=== PATIENT | male | born 1945 | race Caucasian/White ===

== ENCOUNTER → 2018-10-30 14:31 | Outpatient (CLI) | payer MEDICARE, OTHER, SELFPAY ==
[2018-10-30 15:28] LABS: Hematocrit 37.6 % (41-53); Hemoglobin 13.2 g/dL (13.5-17.5); Mean Corpuscular HGB Conc 34.9 % (30-36); Mean Corpuscular Hemoglobin 31.1 PG (26-34); Mean Corpuscular Volume 89.1 fL (80-100); Platelet Count 338 X10^3/uL (150-400); Red Blood Cell Count 4.22 X10^6/uL (4.5-5.9); Red Cell Distribution Width 12.8 % (11.6-14.8); White Blood Cell Count 8.7 X10^3/uL (4.5-11.0)
[2018-10-30 15:54] LABS: BUN Creatinine Ratio 15.5 (6-22); Blood Urea Nitrogen 17 mg/dL (9-20); Calcium 9.4 mg/dL (8.4-10.2); Carbon Dioxide 25 mmol/L (22-32); Chloride 101 mmol/L (98-107); Estimated Glomerular Filt Rate > 60.0 mL/min (>60); Glucose 149 mg/dL (80-110); HEMOLYSIS < 15 (0-50); Potassium 3.5 mmol/L (3.4-5.1); Sodium 138 mmol/L (137-145)
[2018-10-30 17:12] LABS: Vitamin D 25 Hydroxy (D3) 35.6 ng/mL (30.0-100.0)
== END ==
PROVIDERS: PCP Student in an Organized Health Care Education/Training Program; Visit Provider Student in an Organized Health Care Education/Training Program
DX: D64.9 Anemia, unspecified (principal); I10 Essential (primary) hypertension; R04.0 Epistaxis; E55.9 Vitamin D deficiency, unspecified
CPT/HCPCS: 36415; 80048; 82306; 85027

== ENCOUNTER → 2020-03-02 14:31 | Outpatient (CLI) | payer MEDICARE, OTHER, SELFPAY ==
--- NOTE | 2020-03-02 14:35 | DI.RAD.S_ITS ---
PROCEDURE: XR WRIST RT MIN 3V INDICATIONS: Dorsal Wrist pain TECHNIQUE: 4 views of the wrist were acquired. COMPARISON: [facility], , WRIST MINIMUM 3 VIEWS RIGHT, 11/14/2012, 8:45. FINDINGS: Bones: No fractures or dislocations. No suspicious bony lesions. Moderate to severe 1st CMC degenerative narrowing, with subchondral sclerosis and cyst formation, progressive compared to prior exam. Radiocarpal narrowing is also noted. Scaphoid view: No visualized fracture. Soft tissues: No suspicious soft tissue calcifications. IMPRESSION: Moderate to severe 1st CMC degenerative narrowing suggestive of osteoarthritis Dictated by: Sofy Stein M.D. on 03/02/2020 at 17:53 Approved by: Sofy Stein M.D. on 03/02/2020 at 17:53
== END ==
PROVIDERS: PCP Student in an Organized Health Care Education/Training Program; Referring Provider Student in an Organized Health Care Education/Training Program; Visit Provider Student in an Organized Health Care Education/Training Program
DX: M25.531 Pain in right wrist (principal)
CPT/HCPCS: 73110

== ENCOUNTER 2020-04-01 09:45 | Outpatient (RCR) | payer MEDICARE, OTHER, SELFPAY ==
--- NOTE | 2020-03-05 13:23 | PT.OIE ---
Current Diagnoses Pain in right knee (03/05/20) Past Medical History (Last Reviewed 03/21/18 @ 12:59 by Ruben Contreras MD) Actinic keratosis (Resolved) Allergic rhinitis (Chronic) Carpal tunnel syndrome (Chronic) Chronic obstructive pulmonary disease (Chronic 04/10/16) COPD (chronic obstructive pulmonary disease) (Chronic) Deviated nasal septum (Chronic) Essential hypertension (Chronic 04/10/16) Hyperlipemia (Chronic) Hypertension (Chronic) Left knee pain (Chronic) Pure hypercholesterolemia (Chronic 04/10/16) Recurrent epistaxis (Chronic) Seborrheic keratosis (Chronic 04/20/16) Shoulder impingement (Chronic ~2011) Past Surgical History (Last Updated 10/31/18 @ 07:51 by Ignacio Ny MD) Hx of hernia repair (Resolved) Visit Care Team Role Provider Type Ignacio Ny MD Attending Provider Physician Primary Care Provider Referring Provider Specialty: Internal Medicine Address: [address] [place] [address], [facility] Email: [email or web address] Physical Therapy Initial Evaluation PT-OP-A Visit Information Start: 03/05/20 10:31 Freq: Status: Active Protocol: Document 03/05/20 12:15 MB (Rec: 03/05/20 12:28 MB [id number]) Out-Patient Physical Therapy Visit Information Visit Information Visit Type Initial Evaluation Visit Note Medicare Visit Start Time 12:15 Visit Stop Time 12:55 Total Visit Minutes 40 Visit Number 1 Evaluation Information Evaluation Date 03/05/20 PT-OP-B Current Condition Start: 03/05/20 10:31 Freq: Status: Active Protocol: Document 03/05/20 12:15 MB (Rec: 03/05/20 12:28 MB [id number]) Current Condition History of Current Condition Onset Date Many years ago Current Complaints Pain from right knee down [place] especially when getting up from sitting >1 h History of Current Condition Pt reports a long history of right knee pain. He had PT in the past that was helpful. He discharged because he met his goals. This was 3-4 years ago. He reports that previous PT was for right ITB pain. He had pain when playing ping pong. His pain now is in the knee joint. In the morning, the knee joint sounds like it is clunking around and then the leg feels heavy. The pain goes down the [place]. He walks 3 miles a day. He has a guided mower and has pain down the right [place] after mowing an hour. He also has pain in the right knee joint when getting up after driving 1-2 hours. He denies paresthesias in the legs. Pt reports 2/10 pain. PMH: Right knee arthritis, B knee injections, right wrist problem, essential HTN, high cholesterol. He has been taking statin for many years and BP meds. Treatment Goals Patient/Caregiver Goals To not have pain when he gets up Prior Functional Status Baseline Function- ADL's Independent Baseline Function- Mobility Independent PT-OP-C Subjective Start: 03/05/20 10:31 Freq: Status: Active Protocol: Document 03/05/20 12:15 MB (Rec: 03/05/20 12:28 MB [id number]) OP-PT Subjective Patient Comments Patient Comments See history of current condition Patient Questionnaires Lower Extremity Functional Scale LEFS Impairment 20 to 39% Impaired (Score 48- 62) PT-OP-J Posture/Palpation/Skin Start: 03/05/20 10:31 Freq: Status: Active Protocol: Document 03/05/20 12:15 MB (Rec: 03/05/20 13:19 MB [id number]) Posture Evaluation Comments Posture Comments Standing: forward head, rounded shoulders, Dowager's hump, decreased thoracic kyphosis, increased lordosis, anterior tilt pelvis, right shoulder lower with right scapula protracted and elevated compared to the left (pt is right hand dominant), right iliac crest higher than the left, B overpronation rear foot, greater on the right foot, increased Bella angle, greater on the right PT-OP-K Range of Motion Start: 03/05/20 10:31 Freq: Status: Active Protocol: Document 03/05/20 12:15 MB (Rec: 03/05/20 13:19 MB [id number]) Knee Goniometric Range of Motion Knee Left Knee ROM WFL No Patient Position Supine Flexion Active (degrees) 115 Extension Active (degrees) 5 Right Knee ROM WFL No Patient Position Supine Flexion Active (degrees) 115 Extension Active (degrees) 5 PT-OP-M Strength Start: 03/05/20 10:31 Freq: Status: Active Protocol: Document 03/05/20 12:15 MB (Rec: 03/05/20 13:19 MB [id number]) Hip Strength Hip Manual Muscle Testing Left Flexion (L2) 5 Normal Abduction 5 Normal Comments Pt supine Right Flexion (L2) 5 Normal Abduction 4 Good Comments Pt supine Knee Strength Knee Manual Muscle Testing Left Flexion (S2) 5 Normal Extension (L3) 5 Normal Right Flexion (S2) 5 Normal Extension (L3) 5 Normal Ankle/Foot Strength Ankle and Foot Manual Muscle Testing Left Dorsiflexion (L4) 5 Normal Plantarflexion (S1) 5 Normal Inversion 5 Normal Eversion (S1) 5 Normal Comments Pt supine. Pt does have limited eversion and inversion mobility d/t degenerative changes and trouble isolating them movement Right Dorsiflexion (L4) 5 Normal Plantarflexion (S1) 5 Normal Inversion 5 Normal Eversion (S1) 5 Normal Comments Pt supine. Pt does have limited eversion and inversion mobility d/t degenerative changes and trouble isolating them movement Toe Strength Toe Manual Muscle Testing Left Great Toe Extension 5 Normal Right Great Toe Extension 5 Normal PT-OP-Q Treatments Start: 03/05/20 10:31 Freq: Status: Active Protocol: Document 03/05/20 12:15 MB (Rec: 03/05/20 13:19 MB [id number]) Therapeutic Exercises Supine Exercises AP Side bilateral Comments Ed to perform in bed and in sitting HS Side bilateral Comments 1 rep and ed to perform at home in the bed before getting up in a.m. Sitting Exercises HS Side bilateral Comments Ed to perform when sitting longer than 1/2 hour at desk, in chair or car Manual Therapy Treatment Taping R knee Type of Tape Kinesio Tape Comments Black KT c strip under patella and B I strips medial and lateral knee to support knee Self-Care/Home Management Treatment Education Other Education No barefoot walking, use of ice, pillow support under knees if supine and between knees if side sleeping PT-OP-T Assessment and Plan Start: 03/05/20 10:31 Freq: Status: Active Protocol: Document 03/05/20 12:15 MB (Rec: 03/05/20 13:19 MB [id number]) Physical Therapy Assessment Rehab Potential Rehabilitation Potential Good Evaluation Complexity Number of Personal Factors/Comorbidities 1-2 Number of Body Systems Impaired 1-2 Clinical Presentation at Evaluation Stable Impairments Impairments Balance,Functional Activities, Functional Mobility,Gait,Pain, Posture,ROM,Soft Tissue Mobility,Strength Other Concerns Fall Risk No Goals 4 Laboratory Tech Goal (LTG) Pt will perform progressive HEP with I including postural, alignment, flexibility, strength and balance to improve gait, pain and range by 05/05/2020. LTG Duration 8 weeks 3 Custodial Goal (LTG) Pt will present with improved right hip abduction strength to 5/5 to improve standing balance by 05/05/2020. LTG Duration 8 weeks 2 Custodial Goal (LTG) Pt will present with improved B AROM knees in supine 2-125 deg to improve function and flexibility by 05/05/2020. LTG Duration 8 weeks 1 Impairment LEF reflects 26.25% impairment Custodial Goal (LTG) Pt will present with LEF score reflecting no more than 20% impairment to reflect improved functional mobility and pain by 05/05/2020. LTG Duration 8 weeks Assessment Summary Assessment Pt is a 75 y/o male presenting with long history of right knee pain. On assessment, he demonstrates postural changes including increased body mass, rearfoot overpronation greater on the right affecting knee and hip position up the chain in standing, pelvic obliquities, decreased B knee AROM, right hip weakness and myofascial changes. MD report reflects history of OA and pt reports history of B knee injections. He responded well to PT in the past. He will benefit from PT for flexibility, strengthening, myofascial, pelvic realignment and balance exercises. Barriers include degenerative nature of condition. Physical Therapy Plan Frequency and Duration Frequency of Treatment 2x/Week Duration of Treatment 8 weeks Plan of Care Start Date 03/05/20 Plan of Care End Date 05/05/20 Therapeutic Interventions Therapeutic Interventions Aquatic Therapy,Balance Training,Canalithic Repositioning,Gait Training, Home Exercise Program,Manual Therapy,Neuromuscular Re- education,Patient/Caregiver Education,Self-Care/Home Management,Soft Tissue Mobilization,Taping, Therapeutic Activities, Therapeutic Exercises Modalities Cold Pack/Ice Massage,Electric Stimulation,Hot Packs, Ultrasound Next Visit Focus/Plan Next Note Type Treatment Note Next Visit Plan Pelvic realignment exercises, Olayinka stretch, racquet ball
--- NOTE | 2020-03-05 13:24 | PT.OPPOC ---
Physical, Occupational & Speech Therapy At [facility] Current Diagnoses Pain in right knee (03/05/20) Visit Care Team Role Provider Type Ignacio Ny MD Attending Provider Physician Primary Care Provider Referring Provider Specialty: Internal Medicine Address: [address] [place] [address], [address], [place], [address] Email: [email or web address] Plan Of Care PT-OP-T Assessment and Plan Start: 03/05/20 10:31 Freq: Status: Active Protocol: Document 03/05/20 12:15 MB (Rec: 03/05/20 13:19 MB [id number]) Physical Therapy Assessment Rehab Potential Rehabilitation Potential Good Evaluation Complexity Number of Personal Factors/Comorbidities 1-2 Number of Body Systems Impaired 1-2 Clinical Presentation at Evaluation Stable Impairments Impairments Balance,Functional Activities, Functional Mobility,Gait,Pain, Posture,ROM,Soft Tissue Mobility,Strength Other Concerns Fall Risk No Goals 4 Mechanical Engineering Coop Goal (LTG) Pt will perform progressive HEP with I including postural, alignment, flexibility, strength and balance to improve gait, pain and range by 05/05/2020. LTG Duration 8 weeks 3 Mechanical Engineering Coop Goal (LTG) Pt will present with improved right hip abduction strength to 5/5 to improve standing balance by 05/05/2020. LTG Duration 8 weeks 2 Jail Goal (LTG) Pt will present with improved B AROM knees in supine 2-125 deg to improve function and flexibility by 05/05/2020. LTG Duration 8 weeks 1 Impairment LEF reflects 26.25% impairment Jail Goal (LTG) Pt will present with LEF score reflecting no more than 20% impairment to reflect improved functional mobility and pain by 05/05/2020. LTG Duration 8 weeks Assessment Summary Assessment Pt is a 75 y/o male presenting with long history of right knee pain. On assessment, he demonstrates postural changes including increased body mass, rearfoot overpronation greater on the right affecting knee and hip position up the chain in standing, pelvic obliquities, decreased B knee AROM, right hip weakness and myofascial changes. MD report reflects history of OA and pt reports history of B knee injections. He responded well to PT in the past. He will benefit from PT for flexibility, strengthening, myofascial, pelvic realignment and balance exercises. Barriers include degenerative nature of condition. Physical Therapy Plan Frequency and Duration Frequency of Treatment 2x/Week Duration of Treatment 8 weeks Plan of Care Start Date 03/05/20 Plan of Care End Date 05/05/20 Therapeutic Interventions Therapeutic Interventions Aquatic Therapy,Balance Training,Canalithic Repositioning,Gait Training, Home Exercise Program,Manual Therapy,Neuromuscular Re- education,Patient/Caregiver Education,Self-Care/Home Management,Soft Tissue Mobilization,Taping, Therapeutic Activities, Therapeutic Exercises Modalities Cold Pack/Ice Massage,Electric Stimulation,Hot Packs, Ultrasound Next Visit Focus/Plan Next Note Type Treatment Note Next Visit Plan Pelvic realignment exercises, Olayinka arreguin, millie ball Plan of Care Dates Plan of Care Start Date 03/05/20 Plan of Care End Date 05/05/20 Electronically Signed by: Nancy Galvan PT 03/05/20 3205 Please Sign and Return: I have reviewed this Plan of Care and certify that the skilled therapy services above are required to meet the patient?s needs. Physician Signature Date Printed Name and Credentials Clinical Instructor Signature Printed Name and Credentials
--- NOTE | 2020-03-08 13:48 | PT.OTN ---
Current Diagnoses Pain in right knee (03/08/20) Physical Therapy Treatment Note PT-OP-A Visit Information Start: 03/05/20 10:31 Freq: Status: Active Protocol: Document 03/08/20 12:56 MB (Rec: 03/08/20 13:36 MB [id number]) Out-Patient Physical Therapy Visit Information Visit Information Visit Type Treatment Note Visit Note Medicare Visit Start Time 12:56 Visit Stop Time 13:41 Total Visit Minutes 45 Visit Number 2 PT-OP-B Current Condition Start: 03/05/20 10:31 Freq: Status: Active Protocol: Document 03/05/20 12:15 MB (Rec: 03/05/20 12:28 MB [id number]) Current Condition History of Current Condition Onset Date Many years ago Current Complaints Pain from right knee down [place] especially when getting up from sitting >1 h History of Current Condition Pt reports a long history of right knee pain. He had PT in the past that was helpful. He discharged because he met his goals. This was 3-4 years ago. He reports that previous PT was for right ITB pain. He had pain when playing ping pong. His pain now is in the knee joint. In the morning, the knee joint sounds like it is clunking around and then the leg feels heavy. The pain goes down the [place]. He walks 3 miles a day. He has a guided mower and has pain down the right [place] after mowing an hour. He also has pain in the right knee joint when getting up after driving 1-2 hours. He denies paresthesias in the legs. Pt reports 2/10 pain. PMH: Right knee arthritis, B knee injections, right wrist problem, essential HTN, high cholesterol. He has been taking statin for many years and BP meds. Treatment Goals Patient/Caregiver Goals To not have pain when he gets up Prior Functional Status Baseline Function- ADL's Independent Baseline Function- Mobility Independent PT-OP-C Subjective Start: 03/05/20 10:31 Freq: Status: Active Protocol: Document 03/08/20 12:56 MB (Rec: 03/08/20 13:36 MB [id number]) OP-PT Subjective Patient Comments Patient Comments Pt states that he didn't notice any difference with the tape. He did do the AP and heel slides and that loosened his knee. Pt states that he has an appointment with Dr. Mahan for the knee and wrist cyst in March. PT-OP-J Posture/Palpation/Skin Start: 03/05/20 10:31 Freq: Status: Active Protocol: Document 03/05/20 12:15 MB (Rec: 03/05/20 13:19 MB [id number]) Posture Evaluation Comments Posture Comments Standing: forward head, rounded shoulders, Dowager's hump, decreased thoracic kyphosis, increased lordosis, anterior tilt pelvis, right shoulder lower with right scapula protracted and elevated compared to the left (pt is right hand dominant), right iliac crest higher than the left, B overpronation rear foot, greater on the right foot, increased Bella angle, greater on the right PT-OP-K Range of Motion Start: 03/05/20 10:31 Freq: Status: Active Protocol: Document 03/05/20 12:15 MB (Rec: 03/05/20 13:19 MB [id number]) Knee Goniometric Range of Motion Knee Left Knee ROM WFL No Patient Position Supine Flexion Active (degrees) 115 Extension Active (degrees) 5 Right Knee ROM WFL No Patient Position Supine Flexion Active (degrees) 115 Extension Active (degrees) 5 PT-OP-M Strength Start: 03/05/20 10:31 Freq: Status: Active Protocol: Document 03/05/20 12:15 MB (Rec: 03/05/20 13:19 MB [id number]) Hip Strength Hip Manual Muscle Testing Left Flexion (L2) 5 Normal Abduction 5 Normal Comments Pt supine Right Flexion (L2) 5 Normal Abduction 4 Good Comments Pt supine Knee Strength Knee Manual Muscle Testing Left Flexion (S2) 5 Normal Extension (L3) 5 Normal Right Flexion (S2) 5 Normal Extension (L3) 5 Normal Ankle/Foot Strength Ankle and Foot Manual Muscle Testing Left Dorsiflexion (L4) 5 Normal Plantarflexion (S1) 5 Normal Inversion 5 Normal Eversion (S1) 5 Normal Comments Pt supine. Pt does have limited eversion and inversion mobility d/t degenerative changes and trouble isolating them movement Right Dorsiflexion (L4) 5 Normal Plantarflexion (S1) 5 Normal Inversion 5 Normal Eversion (S1) 5 Normal Comments Pt supine. Pt does have limited eversion and inversion mobility d/t degenerative changes and trouble isolating them movement Toe Strength Toe Manual Muscle Testing Left Great Toe Extension 5 Normal Right Great Toe Extension 5 Normal PT-OP-Q Treatments Start: 03/05/20 10:31 Freq: Status: Active Protocol: Document 03/08/20 12:56 MB (Rec: 03/08/20 13:36 MB [id number]) Cardio Equipment Recumbent Elliptical (Biodex) Duration (Minutes) 10 Resistance 5 Therapeutic Exercises Supine Exercises Abdominal drawing in Comments Abdominal drawing in before Olayinka stretch Olayinka stretch Comments Abdominal drawing in before stretch Pelvic realignment exercises Comments 5 reps with 3 sec hold Standing Exercises Gastroc and soleus stretches Comments Bilateral legs, 20 sec hold Manual Therapy Treatment Other Other Manual Treatments STM right tibialis anterior, ice massage. Pt presents with B distal tibia bone changes, greater on the right and greater edema on the right. Pt with fungus on great toe nail and very long nails and this may be contributing to symptoms on right [place]/ anterior tib. PT-OP-T Assessment and Plan Start: 03/05/20 10:31 Freq: Status: Active Protocol: Document 03/08/20 12:56 MB (Rec: 03/08/20 13:36 MB [id number]) Physical Therapy Assessment Rehab Potential Rehabilitation Potential Good Evaluation Complexity Number of Personal Factors/Comorbidities 1-2 Number of Body Systems Impaired 1-2 Clinical Presentation at Evaluation Stable Impairments Impairments Balance,Functional Activities, Functional Mobility,Gait,Pain, Posture,ROM,Soft Tissue Mobility,Strength Other Concerns Fall Risk No Goals 4 Senior Care Goal (LTG) Pt will perform progressive HEP with I including postural, alignment, flexibility, strength and balance to improve gait, pain and range by 05/05/2020. LTG Duration 8 weeks 3 Senior Care Goal (LTG) Pt will present with improved right hip abduction strength to 5/5 to improve standing balance by 05/05/2020. LTG Duration 8 weeks 2 Education Administrative Assistant Goal (LTG) Pt will present with improved B AROM knees in supine 2-125 deg to improve function and flexibility by 05/05/2020. LTG Duration 8 weeks 1 Impairment LEF reflects 26.25% impairment Education Administrative Assistant Goal (LTG) Pt will present with LEF score reflecting no more than 20% impairment to reflect improved functional mobility and pain by 05/05/2020. LTG Duration 8 weeks Assessment Summary Assessment Initiated alignment exercises and flexibility today to assist with knee range and posture. Con't progression as set below under next treatment comments. Hamstring stetch next treatment date. Tibial changes distally, greater on the right and great toe nail fungus and increased length that may affect foot mechanics in his shoes. Ed pt to get toe nails cut. Physical Therapy Plan Frequency and Duration Frequency of Treatment 2x/Week Duration of Treatment 8 weeks Plan of Care Start Date 03/05/20 Plan of Care End Date 05/05/20 Therapeutic Interventions Therapeutic Interventions Aquatic Therapy,Balance Training,Canalithic Repositioning,Gait Training, Home Exercise Program,Manual Therapy,Neuromuscular Re- education,Patient/Caregiver Education,Self-Care/Home Management,Soft Tissue Mobilization,Taping, Therapeutic Activities, Therapeutic Exercises Modalities Cold Pack/Ice Massage,Electric Stimulation,Hot Packs, Ultrasound Next Visit Focus/Plan Next Note Type Treatment Note Next Visit Plan Review exercises, add hamstring stretch supine, consider SLR if it looks beneficial for quad and leg control, consider upright bike , racquet ball. Progress standing hip strengthening, heel raises with band at side for core engagement.
--- NOTE | 2020-03-12 11:15 | PT.OTN ---
Current Diagnoses Pain in right knee (03/12/20) Physical Therapy Treatment Note PT-OP-A Visit Information Start: 03/05/20 10:31 Freq: Status: Active Protocol: Document 03/12/20 10:35 MB (Rec: 03/12/20 11:12 MB [id number]) Out-Patient Physical Therapy Visit Information Visit Information Visit Type Treatment Note Visit Note Medicare Visit Start Time 10:35 Visit Stop Time 11:15 Total Visit Minutes 40 Visit Number 3 PT-OP-B Current Condition Start: 03/05/20 10:31 Freq: Status: Active Protocol: Document 03/05/20 12:15 MB (Rec: 03/05/20 12:28 MB [id number]) Current Condition History of Current Condition Onset Date Many years ago Current Complaints Pain from right knee down [place] especially when getting up from sitting >1 h History of Current Condition Pt reports a long history of right knee pain. He had PT in the past that was helpful. He discharged because he met his goals. This was 3-4 years ago. He reports that previous PT was for right ITB pain. He had pain when playing ping pong. His pain now is in the knee joint. In the morning, the knee joint sounds like it is clunking around and then the leg feels heavy. The pain goes down the [place]. He walks 3 miles a day. He has a guided mower and has pain down the right [place] after mowing an hour. He also has pain in the right knee joint when getting up after driving 1-2 hours. He denies paresthesias in the legs. Pt reports 2/10 pain. PMH: Right knee arthritis, B knee injections, right wrist problem, essential HTN, high cholesterol. He has been taking statin for many years and BP meds. Treatment Goals Patient/Caregiver Goals To not have pain when he gets up Prior Functional Status Baseline Function- ADL's Independent Baseline Function- Mobility Independent PT-OP-C Subjective Start: 03/05/20 10:31 Freq: Status: Active Protocol: Document 03/12/20 10:35 MB (Rec: 03/12/20 11:12 MB [id number]) OP-PT Subjective Patient Comments Patient Comments Pt states that his whole anterior leg is doing better. The calf stretches are helpful . He cut his toe nails. PT-OP-J Posture/Palpation/Skin Start: 03/05/20 10:31 Freq: Status: Active Protocol: Document 03/05/20 12:15 MB (Rec: 03/05/20 13:19 MB [id number]) Posture Evaluation Comments Posture Comments Standing: forward head, rounded shoulders, Dowager's hump, decreased thoracic kyphosis, increased lordosis, anterior tilt pelvis, right shoulder lower with right scapula protracted and elevated compared to the left (pt is right hand dominant), right iliac crest higher than the left, B overpronation rear foot, greater on the right foot, increased Bella angle, greater on the right PT-OP-K Range of Motion Start: 03/05/20 10:31 Freq: Status: Active Protocol: Document 03/05/20 12:15 MB (Rec: 03/05/20 13:19 MB [id number]) Knee Goniometric Range of Motion Knee Left Knee ROM WFL No Patient Position Supine Flexion Active (degrees) 115 Extension Active (degrees) 5 Right Knee ROM WFL No Patient Position Supine Flexion Active (degrees) 115 Extension Active (degrees) 5 PT-OP-M Strength Start: 03/05/20 10:31 Freq: Status: Active Protocol: Document 03/05/20 12:15 MB (Rec: 03/05/20 13:19 MB [id number]) Hip Strength Hip Manual Muscle Testing Left Flexion (L2) 5 Normal Abduction 5 Normal Comments Pt supine Right Flexion (L2) 5 Normal Abduction 4 Good Comments Pt supine Knee Strength Knee Manual Muscle Testing Left Flexion (S2) 5 Normal Extension (L3) 5 Normal Right Flexion (S2) 5 Normal Extension (L3) 5 Normal Ankle/Foot Strength Ankle and Foot Manual Muscle Testing Left Dorsiflexion (L4) 5 Normal Plantarflexion (S1) 5 Normal Inversion 5 Normal Eversion (S1) 5 Normal Comments Pt supine. Pt does have limited eversion and inversion mobility d/t degenerative changes and trouble isolating them movement Right Dorsiflexion (L4) 5 Normal Plantarflexion (S1) 5 Normal Inversion 5 Normal Eversion (S1) 5 Normal Comments Pt supine. Pt does have limited eversion and inversion mobility d/t degenerative changes and trouble isolating them movement Toe Strength Toe Manual Muscle Testing Left Great Toe Extension 5 Normal Right Great Toe Extension 5 Normal PT-OP-Q Treatments Start: 03/05/20 10:31 Freq: Status: Active Protocol: Document 03/12/20 10:35 MB (Rec: 03/12/20 11:12 MB [id number]) Cardio Equipment Bicycle (Upright) Duration (Minutes) 10 Resistance 2 Other Move to 3 next time Therapeutic Exercises Supine Exercises Hip rotator stretch Comments B 30 sec hold Hamstring stretch Comments B, 45 sec hold and APs Olayinka stretch Comments Abdominal drawing in before stretch B 45 sec, HS Other Exercises Quad STM with rolling pin Comments Perform in sitting Manual Therapy Treatment Other Other Manual Treatments STM right quads with rolling pin PT-OP-T Assessment and Plan Start: 03/05/20 10:31 Freq: Status: Active Protocol: Document 03/12/20 10:35 MB (Rec: 03/12/20 11:12 MB [id number]) Physical Therapy Assessment Rehab Potential Rehabilitation Potential Good Evaluation Complexity Number of Personal Factors/Comorbidities 1-2 Number of Body Systems Impaired 1-2 Clinical Presentation at Evaluation Stable Impairments Impairments Balance,Functional Activities, Functional Mobility,Gait,Pain, Posture,ROM,Soft Tissue Mobility,Strength Other Concerns Fall Risk No Goals 4 Aquatics Instructor Goal (LTG) Pt will perform progressive HEP with I including postural, alignment, flexibility, strength and balance to improve gait, pain and range by 05/05/2020. LTG Duration 8 weeks 3 Aquatics Instructor Goal (LTG) Pt will present with improved right hip abduction strength to 5/5 to improve standing balance by 05/05/2020. LTG Duration 8 weeks 2 [facility] Goal (LTG) Pt will present with improved B AROM knees in supine 2-125 deg to improve function and flexibility by 05/05/2020. LTG Duration 8 weeks 1 Impairment LEF reflects 26.25% impairment Aquatics Instructor Goal (LTG) Pt will present with LEF score reflecting no more than 20% impairment to reflect improved functional mobility and pain by 05/05/2020. LTG Duration 8 weeks Physical Therapy Plan Frequency and Duration Frequency of Treatment 2x/Week Duration of Treatment 8 weeks Plan of Care Start Date 03/05/20 Plan of Care End Date 05/05/20 Therapeutic Interventions Therapeutic Interventions Aquatic Therapy,Balance Training,Canalithic Repositioning,Gait Training, Home Exercise Program,Manual Therapy,Neuromuscular Re- education,Patient/Caregiver Education,Self-Care/Home Management,Soft Tissue Mobilization,Taping, Therapeutic Activities, Therapeutic Exercises Modalities Cold Pack/Ice Massage,Electric Stimulation,Hot Packs, Ultrasound Next Visit Focus/Plan Next Note Type Treatment Note Next Visit Plan Progress strengthening of LEs in standing
--- NOTE | 2020-03-17 13:00 | PT.OTN ---
Current Diagnoses Pain in right knee (03/17/20) Physical Therapy Treatment Note PT-OP-A Visit Information Start: 03/05/20 10:31 Freq: Status: Active Protocol: Document 03/17/20 12:18 MB (Rec: 03/17/20 12:56 MB [id number]) Out-Patient Physical Therapy Visit Information Visit Information Visit Type Treatment Note Visit Note Medicare Visit Start Time 12:18 Visit Stop Time 12:58 Total Visit Minutes 40 Visit Number 4 PT-OP-B Current Condition Start: 03/05/20 10:31 Freq: Status: Active Protocol: Document 03/05/20 12:15 MB (Rec: 03/05/20 12:28 MB [id number]) Current Condition History of Current Condition Onset Date Many years ago Current Complaints Pain from right knee down [place] especially when getting up from sitting >1 h History of Current Condition Pt reports a long history of right knee pain. He had PT in the past that was helpful. He discharged because he met his goals. This was 3-4 years ago. He reports that previous PT was for right ITB pain. He had pain when playing ping pong. His pain now is in the knee joint. In the morning, the knee joint sounds like it is clunking around and then the leg feels heavy. The pain goes down the [place]. He walks 3 miles a day. He has a guided mower and has pain down the right [place] after mowing an hour. He also has pain in the right knee joint when getting up after driving 1-2 hours. He denies paresthesias in the legs. Pt reports 2/10 pain. PMH: Right knee arthritis, B knee injections, right wrist problem, essential HTN, high cholesterol. He has been taking statin for many years and BP meds. Treatment Goals Patient/Caregiver Goals To not have pain when he gets up Prior Functional Status Baseline Function- ADL's Independent Baseline Function- Mobility Independent PT-OP-C Subjective Start: 03/05/20 10:31 Freq: Status: Active Protocol: Document 03/17/20 12:18 MB (Rec: 03/17/20 12:56 MB [id number]) OP-PT Subjective Patient Comments Patient Comments Pt states that he is feeling better. He thinks that the stretching of his calves is helping him. The front of his right [place] feels better, even in the morning. PT-OP-J Posture/Palpation/Skin Start: 03/05/20 10:31 Freq: Status: Active Protocol: Document 03/05/20 12:15 MB (Rec: 03/05/20 13:19 MB [id number]) Posture Evaluation Comments Posture Comments Standing: forward head, rounded shoulders, Dowager's hump, decreased thoracic kyphosis, increased lordosis, anterior tilt pelvis, right shoulder lower with right scapula protracted and elevated compared to the left (pt is right hand dominant), right iliac crest higher than the left, B overpronation rear foot, greater on the right foot, increased Bella angle, greater on the right PT-OP-K Range of Motion Start: 03/05/20 10:31 Freq: Status: Active Protocol: Document 03/05/20 12:15 MB (Rec: 03/05/20 13:19 MB [id number]) Knee Goniometric Range of Motion Knee Left Knee ROM WFL No Patient Position Supine Flexion Active (degrees) 115 Extension Active (degrees) 5 Right Knee ROM WFL No Patient Position Supine Flexion Active (degrees) 115 Extension Active (degrees) 5 PT-OP-M Strength Start: 03/05/20 10:31 Freq: Status: Active Protocol: Document 03/05/20 12:15 MB (Rec: 03/05/20 13:19 MB [id number]) Hip Strength Hip Manual Muscle Testing Left Flexion (L2) 5 Normal Abduction 5 Normal Comments Pt supine Right Flexion (L2) 5 Normal Abduction 4 Good Comments Pt supine Knee Strength Knee Manual Muscle Testing Left Flexion (S2) 5 Normal Extension (L3) 5 Normal Right Flexion (S2) 5 Normal Extension (L3) 5 Normal Ankle/Foot Strength Ankle and Foot Manual Muscle Testing Left Dorsiflexion (L4) 5 Normal Plantarflexion (S1) 5 Normal Inversion 5 Normal Eversion (S1) 5 Normal Comments Pt supine. Pt does have limited eversion and inversion mobility d/t degenerative changes and trouble isolating them movement Right Dorsiflexion (L4) 5 Normal Plantarflexion (S1) 5 Normal Inversion 5 Normal Eversion (S1) 5 Normal Comments Pt supine. Pt does have limited eversion and inversion mobility d/t degenerative changes and trouble isolating them movement Toe Strength Toe Manual Muscle Testing Left Great Toe Extension 5 Normal Right Great Toe Extension 5 Normal PT-OP-Q Treatments Start: 03/05/20 10:31 Freq: Status: Active Protocol: Document 03/17/20 12:18 MB (Rec: 03/17/20 12:56 MB [id number]) Cardio Equipment Bicycle (Upright) Duration (Minutes) 10 Resistance 7 Seat Position 2 Other Move seat to 3 next time Therapeutic Exercises Supine Exercises Hip rotator stretch Side bilateral Reps/Minutes 1 rep 30 sec Olayinka stretch Side bilateral Reps/Minutes 1 rep, hold 1 min Comments MWM with heel slide Manual Therapy Treatment Other Other Manual Treatments STM right vastus lateralis and anterior tibialis PT-OP-T Assessment and Plan Start: 03/05/20 10:31 Freq: Status: Active Protocol: Document 03/17/20 12:18 MB (Rec: 03/17/20 12:56 MB [id number]) Physical Therapy Assessment Rehab Potential Rehabilitation Potential Good Evaluation Complexity Number of Personal Factors/Comorbidities 1-2 Number of Body Systems Impaired 1-2 Clinical Presentation at Evaluation Stable Impairments Impairments Balance,Functional Activities, Functional Mobility,Gait,Pain, Posture,ROM,Soft Tissue Mobility,Strength Other Concerns Fall Risk No Goals 4 [facility] Goal (LTG) Pt will perform progressive HEP with I including postural, alignment, flexibility, strength and balance to improve gait, pain and range by 05/05/2020. LTG Duration 8 weeks 3 Religious Healer Goal (LTG) Pt will present with improved right hip abduction strength to 5/5 to improve standing balance by 05/05/2020. LTG Duration 8 weeks 2 Religious Healer Goal (LTG) Pt will present with improved B AROM knees in supine 2-125 deg to improve function and flexibility by 05/05/2020. LTG Duration 8 weeks 1 Impairment LEF reflects 26.25% impairment Religious Healer Goal (LTG) Pt will present with LEF score reflecting no more than 20% impairment to reflect improved functional mobility and pain by 05/05/2020. LTG Duration 8 weeks Assessment Summary Assessment MWM with Olayinka rodríguez today. Ongoing STM right vastus lateralis today and pt presents with much improved fascial mobility. Physical Therapy Plan Frequency and Duration Frequency of Treatment 2x/Week Duration of Treatment 8 weeks Plan of Care Start Date 03/05/20 Plan of Care End Date 05/05/20 Therapeutic Interventions Therapeutic Interventions Aquatic Therapy,Balance Training,Canalithic Repositioning,Gait Training, Home Exercise Program,Manual Therapy,Neuromuscular Re- education,Patient/Caregiver Education,Self-Care/Home Management,Soft Tissue Mobilization,Taping, Therapeutic Activities, Therapeutic Exercises Modalities Cold Pack/Ice Massage,Electric Stimulation,Hot Packs, Ultrasound Next Visit Focus/Plan Next Note Type Treatment Note Next Visit Plan Progress strengthening of LEs in standing
--- NOTE | 2020-03-19 08:15 | PT.OTN ---
Current Diagnoses Pain in right knee (03/19/20) Physical Therapy Treatment Note PT-OP-A Visit Information Start: 03/05/20 10:31 Freq: Status: Active Protocol: Document 03/19/20 07:30 SP (Rec: 03/19/20 08:13 SP [id number]) Out-Patient Physical Therapy Visit Information Visit Information Visit Type Treatment Note Visit Note Medicare Visit Start Time 07:30 Visit Stop Time 08:15 Total Visit Minutes 45 Visit Number 5 Number of DIE REPAIR Visits 1 PT-OP-B Current Condition Start: 03/05/20 10:31 Freq: Status: Active Protocol: Document 03/05/20 12:15 MB (Rec: 03/05/20 12:28 MB [id number]) Current Condition History of Current Condition Onset Date Many years ago Current Complaints Pain from right knee down [place] especially when getting up from sitting >1 h History of Current Condition Pt reports a long history of right knee pain. He had PT in the past that was helpful. He discharged because he met his goals. This was 3-4 years ago. He reports that previous PT was for right ITB pain. He had pain when playing ping pong. His pain now is in the knee joint. In the morning, the knee joint sounds like it is clunking around and then the leg feels heavy. The pain goes down the [place]. He walks 3 miles a day. He has a guided mower and has pain down the right [place] after mowing an hour. He also has pain in the right knee joint when getting up after driving 1-2 hours. He denies paresthesias in the legs. Pt reports 2/10 pain. PMH: Right knee arthritis, B knee injections, right wrist problem, essential HTN, high cholesterol. He has been taking statin for many years and BP meds. Treatment Goals Patient/Caregiver Goals To not have pain when he gets up Prior Functional Status Baseline Function- ADL's Independent Baseline Function- Mobility Independent PT-OP-C Subjective Start: 03/05/20 10:31 Freq: Status: Active Protocol: Document 03/19/20 07:30 SP (Rec: 03/19/20 08:13 SP [id number]) OP-PT Subjective Patient Comments Patient Comments Pt stated feeling better, the R peroneals muscles have loosened up alot since last tx . No concerns or changes, compliant with HEP. PT-OP-J Posture/Palpation/Skin Start: 03/05/20 10:31 Freq: Status: Active Protocol: Document 03/05/20 12:15 MB (Rec: 03/05/20 13:19 MB [id number]) Posture Evaluation Comments Posture Comments Standing: forward head, rounded shoulders, Dowager's hump, decreased thoracic kyphosis, increased lordosis, anterior tilt pelvis, right shoulder lower with right scapula protracted and elevated compared to the left (pt is right hand dominant), right iliac crest higher than the left, B overpronation rear foot, greater on the right foot, increased Bella angle, greater on the right PT-OP-K Range of Motion Start: 03/05/20 10:31 Freq: Status: Active Protocol: Document 03/05/20 12:15 MB (Rec: 03/05/20 13:19 MB [id number]) Knee Goniometric Range of Motion Knee Left Knee ROM WFL No Patient Position Supine Flexion Active (degrees) 115 Extension Active (degrees) 5 Right Knee ROM WFL No Patient Position Supine Flexion Active (degrees) 115 Extension Active (degrees) 5 PT-OP-M Strength Start: 03/05/20 10:31 Freq: Status: Active Protocol: Document 03/05/20 12:15 MB (Rec: 03/05/20 13:19 MB [id number]) Hip Strength Hip Manual Muscle Testing Left Flexion (L2) 5 Normal Abduction 5 Normal Comments Pt supine Right Flexion (L2) 5 Normal Abduction 4 Good Comments Pt supine Knee Strength Knee Manual Muscle Testing Left Flexion (S2) 5 Normal Extension (L3) 5 Normal Right Flexion (S2) 5 Normal Extension (L3) 5 Normal Ankle/Foot Strength Ankle and Foot Manual Muscle Testing Left Dorsiflexion (L4) 5 Normal Plantarflexion (S1) 5 Normal Inversion 5 Normal Eversion (S1) 5 Normal Comments Pt supine. Pt does have limited eversion and inversion mobility d/t degenerative changes and trouble isolating them movement Right Dorsiflexion (L4) 5 Normal Plantarflexion (S1) 5 Normal Inversion 5 Normal Eversion (S1) 5 Normal Comments Pt supine. Pt does have limited eversion and inversion mobility d/t degenerative changes and trouble isolating them movement Toe Strength Toe Manual Muscle Testing Left Great Toe Extension 5 Normal Right Great Toe Extension 5 Normal PT-OP-Q Treatments Start: 03/05/20 10:31 Freq: Status: Active Protocol: Document 03/19/20 07:30 SP (Rec: 03/19/20 08:13 SP [id number]) Cardio Equipment Bicycle (Upright) Duration (Minutes) 8 Resistance 7 Seat Position 3 Therapeutic Exercises Supine Exercises hooklying clamshell Resistance L1 TB Reps/Minutes 2X10 Hold 2 sec Comments cued PPT and slow controlled pacing bridge Reps/Minutes 2x10 3 sec hold lift Comments cued PPT and slow controlled pacing Standing Exercises eccentric calf raises Side bilateral Equipment Used rail for support Reps/Minutes x10 monster walk Standing Exercise Name f/b/side stepping Equipment Used L2 band Reps/Minutes 10 ft x2 laps each direction Other Exercises Quad STM with rolling pin Other Exercise Name quad, calf, peroneals Comments Perform in sitting PT-OP-T Assessment and Plan Start: 03/05/20 10:31 Freq: Status: Active Protocol: Document 03/19/20 07:30 SP (Rec: 03/19/20 08:13 SP [id number]) Physical Therapy Assessment Goals 4 Retirement Goal (LTG) Pt will perform progressive HEP with I including postural, alignment, flexibility, strength and balance to improve gait, pain and range by 05/05/2020. LTG Duration 8 weeks 3 Retirement Goal (LTG) Pt will present with improved right hip abduction strength to 5/5 to improve standing balance by 05/05/2020. LTG Duration 8 weeks 2 Percussion Instrument Repairer Goal (LTG) Pt will present with improved B AROM knees in supine 2-125 deg to improve function and flexibility by 05/05/2020. LTG Duration 8 weeks 1 Impairment LEF reflects 26.25% impairment Retirement Goal (LTG) Pt will present with LEF score reflecting no more than 20% impairment to reflect improved functional mobility and pain by 05/05/2020. LTG Duration 8 weeks Assessment Summary Assessment Pt responded well to initiated LE strengthening bridge, supine clam TB, band walk and eccentric calf raises with no pain, a good workout for muscles around knees and some over side of lower leg. Reviewed rolling quad and peroneals for self STMs to decrease any tension might have after muscle activtion. Pt no pain or tighness end of tx. Physical Therapy Plan Frequency and Duration Frequency of Treatment 2x/Week Duration of Treatment 8 weeks Plan of Care Start Date 03/05/20 Plan of Care End Date 05/05/20 Therapeutic Interventions Therapeutic Interventions Aquatic Therapy,Balance Training,Canalithic Repositioning,Gait Training, Home Exercise Program,Manual Therapy,Neuromuscular Re- education,Patient/Caregiver Education,Self-Care/Home Management,Soft Tissue Mobilization,Taping, Therapeutic Activities, Therapeutic Exercises Modalities Cold Pack/Ice Massage,Electric Stimulation,Hot Packs, Ultrasound Next Visit Focus/Plan Next Note Type Treatment Note Next Visit Plan Assess response to added LE strengthening see A for details. Continue Progress strengthening of LEs in standing
--- NOTE | 2020-03-23 09:45 | PT.OTN ---
Current Diagnoses Pain in right knee (03/23/20) Physical Therapy Treatment Note PT-OP-A Visit Information Start: 03/05/20 10:31 Freq: Status: Active Protocol: Document 03/23/20 09:01 SP (Rec: 03/23/20 09:44 SP [id number]) Out-Patient Physical Therapy Visit Information Visit Information Visit Type Treatment Note Visit Note Medicare Visit Start Time 09:01 Visit Stop Time 09:45 Total Visit Minutes 44 Visit Number 6 Number of UNIVERSITY INTERN Visits 2 PT-OP-B Current Condition Start: 03/05/20 10:31 Freq: Status: Active Protocol: Document 03/05/20 12:15 MB (Rec: 03/05/20 12:28 MB [id number]) Current Condition History of Current Condition Onset Date Many years ago Current Complaints Pain from right knee down [place] especially when getting up from sitting >1 h History of Current Condition Pt reports a long history of right knee pain. He had PT in the past that was helpful. He discharged because he met his goals. This was 3-4 years ago. He reports that previous PT was for right ITB pain. He had pain when playing ping pong. His pain now is in the knee joint. In the morning, the knee joint sounds like it is clunking around and then the leg feels heavy. The pain goes down the [place]. He walks 3 miles a day. He has a guided mower and has pain down the right [place] after mowing an hour. He also has pain in the right knee joint when getting up after driving 1-2 hours. He denies paresthesias in the legs. Pt reports 2/10 pain. PMH: Right knee arthritis, B knee injections, right wrist problem, essential HTN, high cholesterol. He has been taking statin for many years and BP meds. Treatment Goals Patient/Caregiver Goals To not have pain when he gets up Prior Functional Status Baseline Function- ADL's Independent Baseline Function- Mobility Independent PT-OP-C Subjective Start: 03/05/20 10:31 Freq: Status: Active Protocol: Document 03/23/20 09:01 SP (Rec: 03/23/20 09:44 SP [id number]) OP-PT Subjective Patient Comments Patient Comments Pt reported lower leg feeling alot better maybe if doing something for 2-3 hrs otherwise don't notice it. When get up in the am, not noticing as much tightness as use to. PT-OP-J Posture/Palpation/Skin Start: 03/05/20 10:31 Freq: Status: Active Protocol: Document 03/05/20 12:15 MB (Rec: 03/05/20 13:19 MB [id number]) Posture Evaluation Comments Posture Comments Standing: forward head, rounded shoulders, Dowager's hump, decreased thoracic kyphosis, increased lordosis, anterior tilt pelvis, right shoulder lower with right scapula protracted and elevated compared to the left (pt is right hand dominant), right iliac crest higher than the left, B overpronation rear foot, greater on the right foot, increased Bella angle, greater on the right PT-OP-K Range of Motion Start: 03/05/20 10:31 Freq: Status: Active Protocol: Document 03/05/20 12:15 MB (Rec: 03/05/20 13:19 MB [id number]) Knee Goniometric Range of Motion Knee Left Knee ROM WFL No Patient Position Supine Flexion Active (degrees) 115 Extension Active (degrees) 5 Right Knee ROM WFL No Patient Position Supine Flexion Active (degrees) 115 Extension Active (degrees) 5 PT-OP-M Strength Start: 03/05/20 10:31 Freq: Status: Active Protocol: Document 03/05/20 12:15 MB (Rec: 03/05/20 13:19 MB [id number]) Hip Strength Hip Manual Muscle Testing Left Flexion (L2) 5 Normal Abduction 5 Normal Comments Pt supine Right Flexion (L2) 5 Normal Abduction 4 Good Comments Pt supine Knee Strength Knee Manual Muscle Testing Left Flexion (S2) 5 Normal Extension (L3) 5 Normal Right Flexion (S2) 5 Normal Extension (L3) 5 Normal Ankle/Foot Strength Ankle and Foot Manual Muscle Testing Left Dorsiflexion (L4) 5 Normal Plantarflexion (S1) 5 Normal Inversion 5 Normal Eversion (S1) 5 Normal Comments Pt supine. Pt does have limited eversion and inversion mobility d/t degenerative changes and trouble isolating them movement Right Dorsiflexion (L4) 5 Normal Plantarflexion (S1) 5 Normal Inversion 5 Normal Eversion (S1) 5 Normal Comments Pt supine. Pt does have limited eversion and inversion mobility d/t degenerative changes and trouble isolating them movement Toe Strength Toe Manual Muscle Testing Left Great Toe Extension 5 Normal Right Great Toe Extension 5 Normal PT-OP-Q Treatments Start: 03/05/20 10:31 Freq: Status: Active Protocol: Document 03/23/20 09:01 SP (Rec: 03/23/20 09:44 SP [id number]) Cardio Equipment Bicycle (Upright) Duration (Minutes) 8 Resistance 7 Seat Position 3 Gym Equipment Shuttle Balance Blue>red clip Details WBOS, NBOS Reps/Duration f/b/s Comments 1. WBOS: wt shift, rocking, EC 2. NBOS wt shift, stationary 1 UE contact cued glut/core facilitation decrease unsteadiness Therapeutic Exercises Supine Exercises hooklying clamshell Resistance L1 TB Reps/Minutes 2X10 Hold 2 sec Comments cued PPT and slow controlled pacing bridge Supine Exercise Name isometric Reps/Minutes 30 sec hold x8 Comments good PPT alignment Olayinka stretch Side bilateral Reps/Minutes 1 rep, hold 1 min Comments cued safety trunk positioning side table Standing Exercises SLS Side bilateral Reps/Minutes 20 R, 14 L Comments cued upright posture with glut facilitaion eccentric calf raises Standing Exercise Name parallel, toe out positions Side bilateral Equipment Used rail for support Reps/Minutes 3 sec hold x5 each position monster walk Standing Exercise Name f/b/side stepping Equipment Used L2 band Reps/Minutes 10 ft x2 laps each direction PT-OP-T Assessment and Plan Start: 03/05/20 10:31 Freq: Status: Active Protocol: Document 03/23/20 09:01 SP (Rec: 03/23/20 09:44 SP [id number]) Physical Therapy Assessment Goals 4 Rn Progressive Care Goal (LTG) Pt will perform progressive HEP with I including postural, alignment, flexibility, strength and balance to improve gait, pain and range by 05/05/2020. LTG Duration 8 weeks 3 Mcfp Goal (LTG) Pt will present with improved right hip abduction strength to 5/5 to improve standing balance by 05/05/2020. LTG Duration 8 weeks 2 Mcfp Goal (LTG) Pt will present with improved B AROM knees in supine 2-125 deg to improve function and flexibility by 05/05/2020. LTG Duration 8 weeks 1 Impairment LEF reflects 26.25% impairment Mcfp Goal (LTG) Pt will present with LEF score reflecting no more than 20% impairment to reflect improved functional mobility and pain by 05/05/2020. LTG Duration 8 weeks Assessment Summary Assessment Initiated shuttle balance and SLS today with focus on glut facilitation with ankle stability with good response thats challenging but a good work out for ankles and doesn' t hurt. Provided HO for self application of SLS today. Physical Therapy Plan Frequency and Duration Frequency of Treatment 2x/Week Duration of Treatment 8 weeks Plan of Care Start Date 03/05/20 Plan of Care End Date 05/05/20 Therapeutic Interventions Therapeutic Interventions Aquatic Therapy,Balance Training,Canalithic Repositioning,Gait Training, Home Exercise Program,Manual Therapy,Neuromuscular Re- education,Patient/Caregiver Education,Self-Care/Home Management,Soft Tissue Mobilization,Taping, Therapeutic Activities, Therapeutic Exercises Modalities Cold Pack/Ice Massage,Electric Stimulation,Hot Packs, Ultrasound Next Visit Focus/Plan Next Note Type Treatment Note Next Visit Plan Assess response to added SLS and shuttle balance then HEP review. Continue Progress strengthening of LEs in standing
--- NOTE | 2020-03-25 09:45 | PT.OTN ---
Current Diagnoses Pain in right knee (03/25/20) Physical Therapy Treatment Note PT-OP-A Visit Information Start: 03/05/20 10:31 Freq: Status: Active Protocol: Document 03/25/20 09:04 MB (Rec: 03/25/20 09:45 MB [id number]) Out-Patient Physical Therapy Visit Information Visit Information Visit Type Treatment Note Visit Note Medicare Visit Start Time 09:04 Visit Stop Time 09:45 Total Visit Minutes 41 Visit Number 7 Number of INTERIOR DESIGN FACULTY MEMBER Visits 0 PT-OP-B Current Condition Start: 03/05/20 10:31 Freq: Status: Active Protocol: Document 03/05/20 12:15 MB (Rec: 03/05/20 12:28 MB [id number]) Current Condition History of Current Condition Onset Date Many years ago Current Complaints Pain from right knee down [place] especially when getting up from sitting >1 h History of Current Condition Pt reports a long history of right knee pain. He had PT in the past that was helpful. He discharged because he met his goals. This was 3-4 years ago. He reports that previous PT was for right ITB pain. He had pain when playing ping pong. His pain now is in the knee joint. In the morning, the knee joint sounds like it is clunking around and then the leg feels heavy. The pain goes down the [place]. He walks 3 miles a day. He has a guided mower and has pain down the right [place] after mowing an hour. He also has pain in the right knee joint when getting up after driving 1-2 hours. He denies paresthesias in the legs. Pt reports 2/10 pain. PMH: Right knee arthritis, B knee injections, right wrist problem, essential HTN, high cholesterol. He has been taking statin for many years and BP meds. Treatment Goals Patient/Caregiver Goals To not have pain when he gets up Prior Functional Status Baseline Function- ADL's Independent Baseline Function- Mobility Independent PT-OP-C Subjective Start: 03/05/20 10:31 Freq: Status: Active Protocol: Document 03/25/20 09:04 MB (Rec: 03/25/20 09:45 MB [id number]) OP-PT Subjective Patient Comments Patient Comments I don't know, I haven't had time to think about it much. Pt took opening this morning. PT-OP-J Posture/Palpation/Skin Start: 03/05/20 10:31 Freq: Status: Active Protocol: Document 03/05/20 12:15 MB (Rec: 03/05/20 13:19 MB [id number]) Posture Evaluation Comments Posture Comments Standing: forward head, rounded shoulders, Dowager's hump, decreased thoracic kyphosis, increased lordosis, anterior tilt pelvis, right shoulder lower with right scapula protracted and elevated compared to the left (pt is right hand dominant), right iliac crest higher than the left, B overpronation rear foot, greater on the right foot, increased Bella angle, greater on the right PT-OP-K Range of Motion Start: 03/05/20 10:31 Freq: Status: Active Protocol: Document 03/05/20 12:15 MB (Rec: 03/05/20 13:19 MB [id number]) Knee Goniometric Range of Motion Knee Left Knee ROM WFL No Patient Position Supine Flexion Active (degrees) 115 Extension Active (degrees) 5 Right Knee ROM WFL No Patient Position Supine Flexion Active (degrees) 115 Extension Active (degrees) 5 PT-OP-M Strength Start: 03/05/20 10:31 Freq: Status: Active Protocol: Document 03/05/20 12:15 MB (Rec: 03/05/20 13:19 MB [id number]) Hip Strength Hip Manual Muscle Testing Left Flexion (L2) 5 Normal Abduction 5 Normal Comments Pt supine Right Flexion (L2) 5 Normal Abduction 4 Good Comments Pt supine Knee Strength Knee Manual Muscle Testing Left Flexion (S2) 5 Normal Extension (L3) 5 Normal Right Flexion (S2) 5 Normal Extension (L3) 5 Normal Ankle/Foot Strength Ankle and Foot Manual Muscle Testing Left Dorsiflexion (L4) 5 Normal Plantarflexion (S1) 5 Normal Inversion 5 Normal Eversion (S1) 5 Normal Comments Pt supine. Pt does have limited eversion and inversion mobility d/t degenerative changes and trouble isolating them movement Right Dorsiflexion (L4) 5 Normal Plantarflexion (S1) 5 Normal Inversion 5 Normal Eversion (S1) 5 Normal Comments Pt supine. Pt does have limited eversion and inversion mobility d/t degenerative changes and trouble isolating them movement Toe Strength Toe Manual Muscle Testing Left Great Toe Extension 5 Normal Right Great Toe Extension 5 Normal PT-OP-Q Treatments Start: 03/05/20 10:31 Freq: Status: Active Protocol: Document 03/25/20 09:04 MB (Rec: 03/25/20 09:45 MB [id number]) Cardio Equipment Bicycle (Upright) Duration (Minutes) 10 Resistance 7 Seat Position 2 Therapeutic Exercises Supine Exercises Hip adductor stretch Side bilateral Comments Opposite leg straight Hip rotator stretch Side bilateral Comments Performed today, hold 30 sec Hamstring stretch Side bilateral Comments AP x20 with stretch to asst gastroc stretch Abdominal drawing in Comments Performed before Olayinka stretch Olayinka stretch Side bilateral Comments 1 minute hold, cues for core Standing Exercises Mini wall squat slowly Equipment Used Ball Reps/Minutes 10 Comments Cues to slow down eccentric calf raises Side bilateral Comments L 25 sec, R 11 sec; L 8 sec, R 10 sec monster walk Standing Exercise Name f/b/side stepping Equipment Used L1 band Reps/Minutes 10 ft x2 laps each direction PT-OP-T Assessment and Plan Start: 03/05/20 10:31 Freq: Status: Active Protocol: Document 03/25/20 09:04 MB (Rec: 03/25/20 09:45 MB [id number]) Physical Therapy Assessment Goals 4 Research Hydrologist Goal (LTG) Pt will perform progressive HEP with I including postural, alignment, flexibility, strength and balance to improve gait, pain and range by 05/05/2020. LTG Duration 8 weeks 3 Fdc Goal (LTG) Pt will present with improved right hip abduction strength to 5/5 to improve standing balance by 05/05/2020. LTG Duration 8 weeks 2 Research Hydrologist Goal (LTG) Pt will present with improved B AROM knees in supine 2-125 deg to improve function and flexibility by 05/05/2020. LTG Duration 8 weeks 1 Impairment LEF reflects 26.25% impairment Fdc Goal (LTG) Pt will present with LEF score reflecting no more than 20% impairment to reflect improved functional mobility and pain by 05/05/2020. LTG Duration 8 weeks Assessment Summary Assessment Progressed knee strengthening with mini wall squat today with focus on core and slow movement. Monitor response. Pt sees Dr. Mahan this month to discuss TKR. He reports that his discomfort today moved into the knee joint with walking. Physical Therapy Plan Frequency and Duration Frequency of Treatment 2x/Week Duration of Treatment 8 weeks Plan of Care Start Date 03/05/20 Plan of Care End Date 05/05/20 Therapeutic Interventions Therapeutic Interventions Aquatic Therapy,Balance Training,Canalithic Repositioning,Gait Training, Home Exercise Program,Manual Therapy,Neuromuscular Re- education,Patient/Caregiver Education,Self-Care/Home Management,Soft Tissue Mobilization,Taping, Therapeutic Activities, Therapeutic Exercises Modalities Cold Pack/Ice Massage,Electric Stimulation,Hot Packs, Ultrasound Next Visit Focus/Plan Next Note Type Treatment Note Next Visit Plan Review mini squat against wall , consider multifidi strengthening with band against wall and heel raises, possible hook lying core progression
--- NOTE | 2020-03-30 08:16 | PT.OTN ---
Current Diagnoses Pain in right knee (03/30/20) Physical Therapy Treatment Note PT-OP-A Visit Information Start: 03/05/20 10:31 Freq: Status: Active Protocol: Document 03/30/20 07:31 MB (Rec: 03/30/20 08:16 MB [id number]) Out-Patient Physical Therapy Visit Information Visit Information Visit Type Treatment Note Visit Note Medicare Visit Start Time 07:31 Visit Stop Time 08:15 Total Visit Minutes 44 Visit Number 8 PT-OP-B Current Condition Start: 03/05/20 10:31 Freq: Status: Active Protocol: Document 03/05/20 12:15 MB (Rec: 03/05/20 12:28 MB [id number]) Current Condition History of Current Condition Onset Date Many years ago Current Complaints Pain from right knee down [place] especially when getting up from sitting >1 h History of Current Condition Pt reports a long history of right knee pain. He had PT in the past that was helpful. He discharged because he met his goals. This was 3-4 years ago. He reports that previous PT was for right ITB pain. He had pain when playing ping pong. His pain now is in the knee joint. In the morning, the knee joint sounds like it is clunking around and then the leg feels heavy. The pain goes down the [place]. He walks 3 miles a day. He has a guided mower and has pain down the right [place] after mowing an hour. He also has pain in the right knee joint when getting up after driving 1-2 hours. He denies paresthesias in the legs. Pt reports 2/10 pain. PMH: Right knee arthritis, B knee injections, right wrist problem, essential HTN, high cholesterol. He has been taking statin for many years and BP meds. Treatment Goals Patient/Caregiver Goals To not have pain when he gets up Prior Functional Status Baseline Function- ADL's Independent Baseline Function- Mobility Independent PT-OP-C Subjective Start: 03/05/20 10:31 Freq: Status: Active Protocol: Document 03/30/20 07:31 MB (Rec: 03/30/20 08:16 MB [id number]) OP-PT Subjective Patient Comments Patient Comments Pt has an appointment with Dr. Mahan on 04/05 and 04/14. He will see her for the wrist and the knee. PT-OP-J Posture/Palpation/Skin Start: 03/05/20 10:31 Freq: Status: Active Protocol: Document 03/05/20 12:15 MB (Rec: 03/05/20 13:19 MB [id number]) Posture Evaluation Comments Posture Comments Standing: forward head, rounded shoulders, Dowager's hump, decreased thoracic kyphosis, increased lordosis, anterior tilt pelvis, right shoulder lower with right scapula protracted and elevated compared to the left (pt is right hand dominant), right iliac crest higher than the left, B overpronation rear foot, greater on the right foot, increased Bella angle, greater on the right PT-OP-K Range of Motion Start: 03/05/20 10:31 Freq: Status: Active Protocol: Document 03/05/20 12:15 MB (Rec: 03/05/20 13:19 MB [id number]) Knee Goniometric Range of Motion Knee Left Knee ROM WFL No Patient Position Supine Flexion Active (degrees) 115 Extension Active (degrees) 5 Right Knee ROM WFL No Patient Position Supine Flexion Active (degrees) 115 Extension Active (degrees) 5 PT-OP-M Strength Start: 03/05/20 10:31 Freq: Status: Active Protocol: Document 03/05/20 12:15 MB (Rec: 03/05/20 13:19 MB [id number]) Hip Strength Hip Manual Muscle Testing Left Flexion (L2) 5 Normal Abduction 5 Normal Comments Pt supine Right Flexion (L2) 5 Normal Abduction 4 Good Comments Pt supine Knee Strength Knee Manual Muscle Testing Left Flexion (S2) 5 Normal Extension (L3) 5 Normal Right Flexion (S2) 5 Normal Extension (L3) 5 Normal Ankle/Foot Strength Ankle and Foot Manual Muscle Testing Left Dorsiflexion (L4) 5 Normal Plantarflexion (S1) 5 Normal Inversion 5 Normal Eversion (S1) 5 Normal Comments Pt supine. Pt does have limited eversion and inversion mobility d/t degenerative changes and trouble isolating them movement Right Dorsiflexion (L4) 5 Normal Plantarflexion (S1) 5 Normal Inversion 5 Normal Eversion (S1) 5 Normal Comments Pt supine. Pt does have limited eversion and inversion mobility d/t degenerative changes and trouble isolating them movement Toe Strength Toe Manual Muscle Testing Left Great Toe Extension 5 Normal Right Great Toe Extension 5 Normal PT-OP-Q Treatments Start: 03/05/20 10:31 Freq: Status: Active Protocol: Document 03/30/20 07:31 MB (Rec: 03/30/20 08:16 MB [id number]) Cardio Equipment Bicycle (Upright) Duration (Minutes) 12 Resistance 7 Seat Position 2 Therapeutic Exercises Sitting Exercises Ankle DF and eversion with level 2 band Equipment Used Level 2 band Reps/Minutes 10 Comments Cues to keep knees straight Standing Exercises Core engagement with band at side, heel raises Side bilateral Equipment Used Level 2 band Comments 5 each side Manual Therapy Treatment Other Other Manual Treatments STM rolling pin right vastus lateralis, STM right anterior tib PT-OP-T Assessment and Plan Start: 03/05/20 10:31 Freq: Status: Active Protocol: Document 03/30/20 07:31 MB (Rec: 03/30/20 08:16 MB [id number]) Physical Therapy Assessment Goals 4 Insurance And Financial Services Agent Goal (LTG) Pt will perform progressive HEP with I including postural, alignment, flexibility, strength and balance to improve gait, pain and range by 05/05/2020. LTG Duration 8 weeks 3 Insurance And Financial Services Agent Goal (LTG) Pt will present with improved right hip abduction strength to 5/5 to improve standing balance by 05/05/2020. LTG Duration 8 weeks 2 Fpc Goal (LTG) Pt will present with improved B AROM knees in supine 2-125 deg to improve function and flexibility by 05/05/2020. LTG Duration 8 weeks 1 Impairment LEF reflects 26.25% impairment Insurance And Financial Services Agent Goal (LTG) Pt will present with LEF score reflecting no more than 20% impairment to reflect improved functional mobility and pain by 05/05/2020. LTG Duration 8 weeks Assessment Summary Assessment Progressed HEP today to include balance with core and ankle strengthening. Anticipate one more PT treatment and then d/c PT. Physical Therapy Plan Frequency and Duration Frequency of Treatment 2x/Week Duration of Treatment 8 weeks Plan of Care Start Date 03/05/20 Plan of Care End Date 05/05/20 Therapeutic Interventions Therapeutic Interventions Aquatic Therapy,Balance Training,Canalithic Repositioning,Gait Training, Home Exercise Program,Manual Therapy,Neuromuscular Re- education,Patient/Caregiver Education,Self-Care/Home Management,Soft Tissue Mobilization,Taping, Therapeutic Activities, Therapeutic Exercises Modalities Cold Pack/Ice Massage,Electric Stimulation,Hot Packs, Ultrasound Next Visit Focus/Plan Next Note Type Treatment Note Next Visit Plan Review any exercises as needed
--- NOTE | 2020-04-01 10:20 | PT.OTN ---
Current Diagnoses Pain in right knee (04/01/20) Physical Therapy Treatment Note PT-OP-A Visit Information Start: 03/05/20 10:31 Freq: Status: Active Protocol: Document 04/01/20 09:41 MB (Rec: 04/01/20 10:13 MB [id number]) Out-Patient Physical Therapy Visit Information Visit Information Visit Type Treatment Note Visit Note Medicare Visit Start Time 09:41 Visit Stop Time 10:19 Total Visit Minutes 38 Visit Number 9 PT-OP-B Current Condition Start: 03/05/20 10:31 Freq: Status: Active Protocol: Document 03/05/20 12:15 MB (Rec: 03/05/20 12:28 MB [id number]) Current Condition History of Current Condition Onset Date Many years ago Current Complaints Pain from right knee down whit[place] especially when getting up from sitting >1 h History of Current Condition Pt reports a long history of right knee pain. He had PT in the past that was helpful. He discharged because he met his goals. This was 3-4 years ago. He reports that previous PT was for right ITB pain. He had pain when playing ping pong. His pain now is in the knee joint. In the morning, the knee joint sounds like it is clunking around and then the leg feels heavy. The pain goes down the whit[place]. He walks 3 miles a day. He has a guided mower and has pain down the right whit[place] after mowing an hour. He also has pain in the right knee joint when getting up after driving 1-2 hours. He denies paresthesias in the legs. Pt reports 2/10 pain. PMH: Right knee arthritis, B knee injections, right wrist problem, essential HTN, high cholesterol. He has been taking statin for many years and BP meds. Treatment Goals Patient/Caregiver Goals To not have pain when he gets up Prior Functional Status Baseline Function- ADL's Independent Baseline Function- Mobility Independent PT-OP-C Subjective Start: 03/05/20 10:31 Freq: Status: Active Protocol: Document 04/01/20 09:41 MB (Rec: 04/01/20 10:13 MB [id number]) OP-PT Subjective Patient Comments Patient Comments I don't know. When PT asks pt if he is ready to d/c. If I don't need it, I don't need it. He is performing exercises. PT-OP-J Posture/Palpation/Skin Start: 03/05/20 10:31 Freq: Status: Active Protocol: Document 03/05/20 12:15 MB (Rec: 03/05/20 13:19 MB [id number]) Posture Evaluation Comments Posture Comments Standing: forward head, rounded shoulders, Dowager's hump, decreased thoracic kyphosis, increased lordosis, anterior tilt pelvis, right shoulder lower with right scapula protracted and elevated compared to the left (pt is right hand dominant), right iliac crest higher than the left, B overpronation rear foot, greater on the right foot, increased Bella angle, greater on the right PT-OP-K Range of Motion Start: 03/05/20 10:31 Freq: Status: Active Protocol: Document 03/05/20 12:15 MB (Rec: 03/05/20 13:19 MB [id number]) Knee Goniometric Range of Motion Knee Left Knee ROM WFL No Patient Position Supine Flexion Active (degrees) 115 Extension Active (degrees) 5 Right Knee ROM WFL No Patient Position Supine Flexion Active (degrees) 115 Extension Active (degrees) 5 PT-OP-M Strength Start: 03/05/20 10:31 Freq: Status: Active Protocol: Document 03/05/20 12:15 MB (Rec: 03/05/20 13:19 MB [id number]) Hip Strength Hip Manual Muscle Testing Left Flexion (L2) 5 Normal Abduction 5 Normal Comments Pt supine Right Flexion (L2) 5 Normal Abduction 4 Good Comments Pt supine Knee Strength Knee Manual Muscle Testing Left Flexion (S2) 5 Normal Extension (L3) 5 Normal Right Flexion (S2) 5 Normal Extension (L3) 5 Normal Ankle/Foot Strength Ankle and Foot Manual Muscle Testing Left Dorsiflexion (L4) 5 Normal Plantarflexion (S1) 5 Normal Inversion 5 Normal Eversion (S1) 5 Normal Comments Pt supine. Pt does have limited eversion and inversion mobility d/t degenerative changes and trouble isolating them movement Right Dorsiflexion (L4) 5 Normal Plantarflexion (S1) 5 Normal Inversion 5 Normal Eversion (S1) 5 Normal Comments Pt supine. Pt does have limited eversion and inversion mobility d/t degenerative changes and trouble isolating them movement Toe Strength Toe Manual Muscle Testing Left Great Toe Extension 5 Normal Right Great Toe Extension 5 Normal PT-OP-Q Treatments Start: 03/05/20 10:31 Freq: Status: Active Protocol: Document 04/01/20 09:41 MB (Rec: 04/01/20 10:13 MB [id number]) Cardio Equipment Bicycle (Upright) Duration (Minutes) 20 Resistance 7 Seat Position 2 Therapeutic Exercises Other Exercises Updated HEP Other Exercise Name Everyday, all stretches Comments M/W/F hook lying strength, ankles, heel raise band T/Th/ Sat walking with ba Manual Therapy Treatment Other Other Manual Treatments STM rolling pin right vastus lateralis, STM right anterior tib PT-OP-T Assessment and Plan Start: 03/05/20 10:31 Freq: Status: Active Protocol: Document 04/01/20 09:41 MB (Rec: 04/01/20 10:13 MB [id number]) Physical Therapy Assessment Goals 4 [facility] Goal (LTG) Pt will perform progressive HEP with I including postural, alignment, flexibility, strength and balance to improve gait, pain and range by 05/05/2020. 04/01/2020: Pt is performing progressive exercises, goal met LTG Duration 8 weeks 3 [facility] Goal (LTG) Pt will present with improved right hip abduction strength to 5/5 to improve standing balance by 05/05/2020. 04/01/2020: B hip abduction 5/5 LTG Duration 8 weeks 2 [facility] Goal (LTG) Pt will present with improved B AROM knees in supine 2-125 deg to improve function and flexibility by 05/05/2020. 04/01/2020: Right knee ROM 2- 120 deg. LTG Duration 8 weeks 1 Impairment LEF reflects 26.25% impairment Assistant Facility Manager Goal (LTG) Pt will present with LEF score reflecting no more than 20% impairment to reflect improved functional mobility and pain by 05/05/2020. 04/01/2020: LEF score reflects 21.25% impairment LTG Duration 8 weeks Assessment Summary Assessment Pt has met the following PT goals since starting PT: performance of progressive HEP and B hip abduction strength to 5/5. He has progressed towards right knee AROM goal and LEF score. Revised HEP at d/c: Everyday: [place], hamstring, hip rotator, hip adductor and calf stretches, SLS. M/W/F: glute bridge, hip adduction with band, heel raises with band, ankle band. T/Th/Sat: walking with band, heel raises on step, wall side. As needed : Pelvic realignment exercises , rolling pin massage. Pt has maximized outpatient PT potential. Will d/c PT. Physical Therapy Plan Discharge Physical Therapy Discharge Reasons Goals Met
== END 2020-04-05 13:44 ==
LOC: PHYS 09:45
PROVIDERS: PCP Student in an Organized Health Care Education/Training Program; Referring Provider Student in an Organized Health Care Education/Training Program; Visit Provider Student in an Organized Health Care Education/Training Program
DX: M25.561 Pain in right knee (principal)
CPT/HCPCS: 97110; 97140; 97161; 97535

== ENCOUNTER → 2021-04-28 09:39 | Outpatient (CLI) | payer MEDICARE, OTHER, SELFPAY ==
[2021-04-28 10:27] LABS: COVID19 -Nasal RAPID Negative (Negative)
== END ==
PROVIDERS: PCP Student in an Organized Health Care Education/Training Program; Visit Provider Student in an Organized Health Care Education/Training Program
DX: Z20.822 Contact with and (suspected) exposure to COVID-19 (principal); R05.9 Cough, unspecified
CPT/HCPCS: 87635

== ENCOUNTER 2022-04-14 09:45 | Outpatient (RCR) | payer MEDICARE, OTHER, SELFPAY ==
--- NOTE | 2022-02-13 12:39 | PT.OIE ---
Current Diagnoses Pain in right leg (02/13/22) Past Medical History (Last Reviewed 03/21/18 @ 12:59 by Ruben Contreras MD) Actinic keratosis Allergic rhinitis Carpal tunnel syndrome Chronic obstructive pulmonary disease (04/10/16) COPD (chronic obstructive pulmonary disease) Deviated nasal septum Essential hypertension (04/10/16) Hyperlipemia Hypertension Left knee pain Pure hypercholesterolemia (04/10/16) Recurrent epistaxis Seborrheic keratosis (04/20/16) Shoulder impingement (~2011) Past Surgical History (Last Updated 10/31/18 @ 07:51 by Ignacio Ny MD) Hx of hernia repair Visit Care Team Role Provider Type Ignacio Ny MD Attending Provider Physician Family Provider Primary Care Provider Referring Provider Specialty: Internal Medicine Address: [address] [place] [address], [address], [facility] Email: [email or web address] Physical Therapy Initial Evaluation PT-OP-A Visit Information Start: 02/09/22 19:41 Freq: Status: Active Protocol: Document 02/13/22 09:50 LRN (Rec: 02/13/22 11:12 LRN [id number]) Out-Patient Physical Therapy Visit Information Visit Information Visit Type Initial Evaluation Visit Start Time 09:50 Visit Stop Time 10:43 Total Visit Minutes 53 Visit Number 1 Evaluation Information Evaluation Date 02/13/22 Precautions Precautions Controlled HBP, Arthritis in fingers. PT-OP-B Current Condition Start: 02/09/22 19:41 Freq: Status: Active Protocol: Document 02/13/22 09:50 LRN (Rec: 02/13/22 11:12 LRN [id number]) Current Condition History of Current Condition Onset Date Jul 2021 Current Complaints R anterior, lateral and posteromedial lower leg, sometimes into big toe History of Current Condition R lower leg pain that sometimes radiates into the lateral ankle and big toe. Pain depends on the time of day and activity he is doing. Denies accident or injury. Noticed it playing [employer] 2x/week, (summer time 1x/week )during the school year after the first 2-3 games. Walks daily (3 miles) and as long as he doesn't do anything before the walk he can finish, otherwise he can only tolerate 1-2 miles before pain. Sometimes the pain goes away if he does not other activity after walking. Prior Treatments and Tests Arthritis salve, Torstenve sometimes helps decrease pain. Treatment Goals Patient/Caregiver Goals Pt goal is to sleep through the night without pain, to be able to walk for exercise daily 2-3 miles regardless of prior activities, to be able carry the laundry baskets without onset of pain. Prior Functional Status Baseline Function- ADL's Independent Baseline Function- Mobility Independent Baseline Function- Gait 2-3 miles walking daily Baseline Function- Recreation/Hobbies Ping pong 2x/week during school year and 1x/week during summer. Current Functional Impairments (Reported) Functional Limitations- ADL's Standing, sometimes vaccuming, sleep interruption if on L side with R leg hanging over, first steps in morning are painful. Carrying laudry basket causes L lower leg pain. Functional Limitations- Mobility/Gait Walking sidewalks in town 2-3 miles if having done no other previous activities. Functional Limitations- Recreation/ 1-2 ping pong games Hobbies Personal Factors Other Personal Factors That May Effect None. Therapy/Recovery PT-OP-C Subjective Start: 02/09/22 19:41 Freq: Status: Active Protocol: Document 02/13/22 09:50 LRN (Rec: 02/13/22 11:12 LRN [id number]) Patient Questionnaires Lower Extremity Functional Scale LEFS Score 53 LEFS Impairment 20 to 39% Impaired (Score 48- 62) OP-PT Pain Assessment Pain Assessment Grid Paper Pain Assessment Grid Completed Yes Location L lower leg Pain Location Details L anterior, lateral, psoterior lower leg Intensity 4 Scale Used Numeric (0 - 10) Description Aching,Tingling Frequency Daily Pain Aggravating Factors Standing,Sitting,Walking,Stair Climbing Other Pain Aggravating Factors Playing ping pong, stepping up with L foot, sleeping (side when turning). Pain Alleviating Factors Heat Other Pain Alleviating Factors Arthritis salve. PT-OP-J Posture/Palpation/Skin Start: 02/09/22 19:41 Freq: Status: Active Protocol: Document 02/13/22 09:50 LRN (Rec: 02/13/22 11:12 LRN [id number]) Posture Evaluation Position Standing Head/C-Spine Posture Forward Head L-Spine Posture Shifted Left Shoulder Posture (R) Elevated Pelvis Posture (R) Iliac Crest Superior Hip Posture (L) Externally Rotated,(R) Externally Rotated Knee Posture (L) Ext. Tibial Torsion,(R) Ext. Tibial Torsion Ankle/Foot Posture (L) Pronated,(R) Calcaneal Inversion Foot Arch (L) Low Arch,(R) Low Arch Comments Posture Comments R handed Palpation Assessment Location Lumbar Palpation Location L/S interspinous and Spinous processes PA mob Palpation Findings Tenderness Palpation Details L rotated Sacrum Palpation Location Sacrum Palpation Details R rotated PT-OP-K Range of Motion Start: 02/09/22 19:41 Freq: Status: Active Protocol: Document 02/13/22 09:50 LRN (Rec: 02/13/22 11:12 LRN [id number]) Lumbar Spine Range of Motion Lumbar Spine Active Degrees Testing Position Standing Flexion 50 Extension 20 Rotation Left 20 Rotation Right 20 Lateral Flexion Left 12 Lateral Flexion Right 5 Comments FB 50/30 BB 20/10 Hip Goniometric Range of Motion Hip Right Passive Testing Position Supine Straight Leg Raise 70 Internal Rotation 20 External Rotation 20 Left Passive Testing Position Supine Straight Leg Raise 67 Internal Rotation 20 External Rotation 30 Knee Goniometric Range of Motion Knee Right Knee ROM WFL Yes Patient Position Supine Flexion Active (degrees) 120 Left Knee ROM WFL Yes Patient Position Supine Flexion Active (degrees) 120 PT-OP-L Special Tests Start: 02/09/22 19:41 Freq: Status: Active Protocol: Document 02/13/22 09:50 LRN (Rec: 02/13/22 11:12 LRN [id number]) Special Tests Lumbar Spine Special Tests Straight Leg Raise Test Results 70 R, 67 L Vertical Spine Loading Test Results Negative Standing Flexion Test Results Positive Comments Reproduced Tightness in lower legs bilaterally PT-OP-M Strength Start: 02/09/22 19:41 Freq: Status: Active Protocol: Document 02/13/22 09:50 LRN (Rec: 02/13/22 11:12 LRN [id number]) Trunk Strength Trunk Manual Muscle Testing Core Stabilization Pt is not able to maintain core stability with MMT of LE' s. Hip Strength Hip Manual Muscle Testing Right Flexion (L2) 5 Normal Extension (S1) 5 Normal Abduction 5 Normal Adduction 5 Normal External Rotation 5 Normal Internal Rotation 5 Normal Left Flexion (L2) 5 Normal Extension (S1) 5 Normal Abduction 5 Normal Adduction 5 Normal External Rotation 5 Normal Internal Rotation 5 Normal Knee Strength Knee Manual Muscle Testing Right Comments Generally 5/5 Left Comments Generally 5/5 Toe Strength Toe Manual Muscle Testing Right Great Toe Extension 5 Normal Left Great Toe Extension 1 Trace PT-OP-Q Treatments Start: 02/09/22 19:41 Freq: Status: Active Protocol: Document 02/13/22 09:50 LRN (Rec: 02/13/22 11:12 LRN [id number]) Self-Care/Home Management Treatment Education Patient Education Pain Management,Posture Other Education Discussed results of evaluation, goals, and plan of care (POC). Pt agreeable to goals and POC. Discussed possible L/S neural involvement. Educated pt in proper sidelie sleeping posture and I/S pt to put pillow between knees and prevent R leg from hanging in front of the left. Activities Self-Care/Home Management Activities I/S in proper sitting posture and to use heat pad to low back and lower R leg for pain. PT-OP-T Assessment and Plan Start: 02/09/22 19:41 Freq: Status: Active Protocol: Document 02/13/22 09:50 LRN (Rec: 02/13/22 11:12 LRN [id number]) Physical Therapy Assessment Rehab Potential Rehabilitation Potential Excellent Evaluation Complexity Number of Personal Factors/Comorbidities 0 Number of Body Systems Impaired 4 or More Clinical Presentation at Evaluation Evolving Impairments Impairments Activity Tolerance,Functional Mobility,Gait,Pain,ROM, Sensation,Soft Tissue Mobility Goals Three Impairment Decreased tolerance to activities due to onset of R lower leg pain. Short Term Goal (STG) Pt will be able to walk for exercise daily 2-3 miles regardless of prior activities . STG Duration 03/27/22 Long-Term Goal (LTG) Improve functional strength with pt able to carry laundry baskets without onset of pain. LTG Duration 04/24/22 Two Impairment R lower leg pain rated 0-4/10. Short Term Goal (STG) Pt will be able to sleep through the night without R lower leg pain STG Duration 03/15/22 Long-Term Goal (LTG) Pt will be able to take first steps in the morning with tolerable or no R lower leg pain LTG Duration 04/24/22 One Impairment Lacks apppropriate self care HEP. Long-Term Goal (LTG) Independent with a self care HEP. LTG Duration 05/14/22 Assessment Summary Assessment Pt presents with possible L/S disc involvement for constant R lower lateral, posterior & anterior leg pain and intermittent increase in pain. Pt has very restrictive soft tissue mobility of the hips, LE's and lumbar tissues. The pt will benefit from skilled physical therapy to achieve the above stated goals . Physical Therapy Plan Frequency and Duration Frequency of Treatment 2x/Week Plan of Care Start Date 02/13/22 Plan of Care End Date 04/24/22 Therapeutic Interventions Therapeutic Interventions Gait Training,Home Exercise Program,Joint Mobilizations, Manual Therapy,Neuromuscular Re-education,Patient/Caregiver Education,Self-Care/Home Management,Soft Tissue Mobilization,Taping, Therapeutic Exercises Modalities Cold Pack/Ice Massage,Electric Stimulation,Hot Packs, Traction- Mechanical Next Visit Focus/Plan Next Note Type Treatment Note Next Visit Plan Pt education in proper body mechanics and review proper nighttime positioning. Check DTR's STM of R lower leg f/b R Lower leg stretches (gastoc/ soleus); Damon ext exer and DKTC, and lateral trunk shift stretch to R; R hip stretches (hamstrings/LE neural, ER/IR) ; manual lumbar traction with pain; sacral/?lumbar mobs to correct L rotation, modalities for ms relaxation (MH/IFES to low back); K-tape to R Lower leg if needed.
--- NOTE | 2022-02-13 12:39 | PT.OPPOC ---
Physical, Occupational & Speech Therapy At [facility] Current Diagnoses Pain in right leg (02/13/22) Visit Care Team Role Provider Type Ignacio Ny MD Attending Provider Physician Family Provider Primary Care Provider Referring Provider Specialty: Internal Medicine Address: [address] [place] [address], [facility] [address], [place], [address] Email: [email or web address] Plan Of Care PT-OP-T Assessment and Plan Start: 02/09/22 19:41 Freq: Status: Active Protocol: Document 02/13/22 09:50 LRN (Rec: 02/13/22 11:12 LRN [id number]) Physical Therapy Assessment Rehab Potential Rehabilitation Potential Excellent Evaluation Complexity Number of Personal Factors/Comorbidities 0 Number of Body Systems Impaired 4 or More Clinical Presentation at Evaluation Evolving Impairments Impairments Activity Tolerance,Functional Mobility,Gait,Pain,ROM, Sensation,Soft Tissue Mobility Goals Three Impairment Decreased tolerance to activities due to onset of R lower leg pain. Short Term Goal (STG) Pt will be able to walk for exercise daily 2-3 miles regardless of prior activities . STG Duration 03/27/22 Skilled Nursing Goal (LTG) Improve functional strength with pt able to carry laundry baskets without onset of pain. LTG Duration 04/24/22 Two Impairment R lower leg pain rated 0-4/10. Short Term Goal (STG) Pt will be able to sleep through the night without R lower leg pain STG Duration 03/15/22 Skilled Nursing Goal (LTG) Pt will be able to take first steps in the morning with tolerable or no R lower leg pain LTG Duration 04/24/22 One Impairment Lacks apppropriate self care HEP. Skilled Nursing Goal (LTG) Independent with a self care HEP. LTG Duration 05/14/22 Assessment Summary Assessment Pt presents with possible L/S disc involvement for constant R lower lateral, posterior & anterior leg pain and intermittent increase in pain. Pt has very restrictive soft tissue mobility of the hips, LE's and lumbar tissues. The pt will benefit from skilled physical therapy to achieve the above stated goals . Physical Therapy Plan Frequency and Duration Frequency of Treatment 2x/Week Plan of Care Start Date 02/13/22 Plan of Care End Date 04/24/22 Therapeutic Interventions Therapeutic Interventions Gait Training,Home Exercise Program,Joint Mobilizations, Manual Therapy,Neuromuscular Re-education,Patient/Caregiver Education,Self-Care/Home Management,Soft Tissue Mobilization,Taping, Therapeutic Exercises Modalities Cold Pack/Ice Massage,Electric Stimulation,Hot Packs, Traction- Mechanical Next Visit Focus/Plan Next Note Type Treatment Note Next Visit Plan Pt education in proper body mechanics and review proper nighttime positioning. Check DTR's STM of R lower leg f/b R Lower leg stretches (gastoc/ soleus); Damon ext exer and DKTC, and lateral trunk shift stretch to R; R hip stretches (hamstrings/LE neural, ER/IR) ; manual lumbar traction with pain; sacral/?lumbar mobs to correct L rotation, modalities for ms relaxation (MH/IFES to low back); K-tape to R Lower leg if needed. Plan of Care Dates Plan of Care Start Date 02/13/22 Plan of Care End Date 04/24/22 Electronically Signed by: Saranya Calvillo, PT 02/13/22 8089 If you are in agreement with this Plan of Care, please return a signed and dated copy. I have reviewed this Plan of Care and certify that the skilled therapy services above are required to meet the patient?s needs. Physician Signature Date Printed Name and Credentials Clinical Instructor Signature Printed Name and Credentials
--- NOTE | 2022-02-17 08:15 | PT.OTN ---
Current Diagnoses Pain in right leg (02/17/22) Physical Therapy Treatment Note PT-OP-A Visit Information Start: 02/09/22 19:41 Freq: Status: Active Protocol: Document 02/17/22 07:31 SP (Rec: 02/17/22 08:21 SP [id number]) Out-Patient Physical Therapy Visit Information Visit Information Visit Type Treatment Note Visit Note GENE Otero assisted in manual and instruction to pt with support and direct supervision of SENIOR BUSINESS DEVELOPMENT MANAGER Fatemeh throughout tx with permission of pt. Visit Start Time 07:31 Visit Stop Time 08:15 Total Visit Minutes 44 Visit Number 2 Number of SENIOR BUSINESS DEVELOPMENT MANAGER Visits 1 Evaluation Information Evaluation Date 02/13/22 Precautions Precautions Controlled HBP, Arthritis in fingers. PT-OP-B Current Condition Start: 02/09/22 19:41 Freq: Status: Active Protocol: Document 02/13/22 09:50 LRN (Rec: 02/13/22 11:12 LRN [id number]) Current Condition History of Current Condition Onset Date Jul 2021 Current Complaints R anterior, lateral and posteromedial lower leg, sometimes into big toe History of Current Condition R lower leg pain that sometimes radiates into the lateral ankle and big toe. Pain depends on the time of day and activity he is doing. Denies accident or injury. Noticed it playing [place], (summer time 1x/week )during the school year after the first 2-3 games. Walks daily (3 miles) and as long as he doesn't do anything before the walk he can finish, otherwise he can only tolerate 1-2 miles before pain. Sometimes the pain goes away if he does not other activity after walking. Prior Treatments and Tests Arthritis [place] fritz sometimes helps decrease pain. Treatment Goals Patient/Caregiver Goals Pt goal is to sleep through the night without pain, to be able to walk for exercise daily 2-3 miles regardless of prior activities, to be able carry the laundry baskets without onset of pain. Prior Functional Status Baseline Function- ADL's Independent Baseline Function- Mobility Independent Baseline Function- Gait 2-3 miles walking daily Baseline Function- Recreation/Hobbies Ping pong 2x/week during school year and 1x/week during summer. Current Functional Impairments (Reported) Functional Limitations- ADL's Standing, sometimes vaccuming, sleep interruption if on L side with R leg hanging over, first steps in morning are painful. Carrying laudry basket causes L lower leg pain. Functional Limitations- Mobility/Gait Walking sidewalks in town 2-3 miles if having done no other previous activities. Functional Limitations- Recreation/ 1-2 ping pong games Hobbies Personal Factors Other Personal Factors That May Effect None. Therapy/Recovery PT-OP-C Subjective Start: 02/09/22 19:41 Freq: Status: Active Protocol: Document 02/17/22 07:31 SP (Rec: 02/17/22 08:21 SP [id number]) OP-PT Subjective Patient Comments Patient Comments Pt reports felt alot better after last tx but pain started to come back on when standing at desk to make more appts, notes exercises does help. Also noted when stepping up on step to do some remodeling work couple days ago also irritated R hip again exercises and awareness of having B legs sidesleeping with legs together helped reduce symptoms. PT-OP-J Posture/Palpation/Skin Start: 02/09/22 19:41 Freq: Status: Active Protocol: Document 02/13/22 09:50 LRN (Rec: 02/13/22 11:12 LRN [id number]) Posture Evaluation Position Standing Head/C-Spine Posture Forward Head L-Spine Posture Shifted Left Shoulder Posture (R) Elevated Pelvis Posture (R) Iliac Crest Superior Hip Posture (L) Externally Rotated,(R) Externally Rotated Knee Posture (L) Ext. Tibial Torsion,(R) Ext. Tibial Torsion Ankle/Foot Posture (L) Pronated,(R) Calcaneal Inversion Foot Arch (L) Low Arch,(R) Low Arch Comments Posture Comments R handed Palpation Assessment Location Lumbar Palpation Location L/S interspinous and Spinous processes PA mob Palpation Findings Tenderness Palpation Details L rotated Sacrum Palpation Location Sacrum Palpation Details R rotated PT-OP-K Range of Motion Start: 02/09/22 19:41 Freq: Status: Active Protocol: Document 02/13/22 09:50 LRN (Rec: 02/13/22 11:12 LRN [id number]) Lumbar Spine Range of Motion Lumbar Spine Active Degrees Testing Position Standing Flexion 50 Extension 20 Rotation Left 20 Rotation Right 20 Lateral Flexion Left 12 Lateral Flexion Right 5 Comments FB 50/30 BB 20/10 Hip Goniometric Range of Motion Hip Right Passive Testing Position Supine Straight Leg Raise 70 Internal Rotation 20 External Rotation 20 Left Passive Testing Position Supine Straight Leg Raise 67 Internal Rotation 20 External Rotation 30 Knee Goniometric Range of Motion Knee Right Knee ROM WFL Yes Patient Position Supine Flexion Active (degrees) 120 Left Knee ROM WFL Yes Patient Position Supine Flexion Active (degrees) 120 PT-OP-L Special Tests Start: 02/09/22 19:41 Freq: Status: Active Protocol: Document 02/13/22 09:50 LRN (Rec: 02/13/22 11:12 LRN [id number]) Special Tests Lumbar Spine Special Tests Straight Leg Raise Test Results 70 R, 67 L Vertical Spine Loading Test Results Negative Standing Flexion Test Results Positive Comments Reproduced Tightness in lower legs bilaterally PT-OP-M Strength Start: 02/09/22 19:41 Freq: Status: Active Protocol: Document 02/13/22 09:50 LRN (Rec: 02/13/22 11:12 LRN [id number]) Trunk Strength Trunk Manual Muscle Testing Core Stabilization Pt is not able to maintain core stability with MMT of LE' s. Hip Strength Hip Manual Muscle Testing Right Flexion (L2) 5 Normal Extension (S1) 5 Normal Abduction 5 Normal Adduction 5 Normal External Rotation 5 Normal Internal Rotation 5 Normal Left Flexion (L2) 5 Normal Extension (S1) 5 Normal Abduction 5 Normal Adduction 5 Normal External Rotation 5 Normal Internal Rotation 5 Normal Knee Strength Knee Manual Muscle Testing Right Comments Generally 5/5 Left Comments Generally 5/5 Toe Strength Toe Manual Muscle Testing Right Great Toe Extension 5 Normal Left Great Toe Extension 1 Trace PT-OP-Q Treatments Start: 02/09/22 19:41 Freq: Status: Active Protocol: Document 02/17/22 07:31 SP (Rec: 02/17/22 08:21 SP [id number]) Therapeutic Exercises Supine Exercises R hip stretch Supine Exercise Name 1. piriformis stretch 2. Fig 4 stretch- reviewed past HEP Side right Reps/Minutes 30s each position Comments good feedback response gentle stretch, painfree Sciatic, peroneal n. glide Supine Exercise Name added to HEP Side left Equipment Used grasp behind thigh (discussed can use towel) w/ AP DF/PF, IV with PF Comments states no pain, slow painfree range pelvis realignment ex Supine Exercise Name 1. isometric adduction 3. isometric hip ext (towel around leg) Side right Resistance reviewed past HEP Reps/Minutes 5 min Comments occasional cues as needed for set up/form Prone Exercises on elbows Prone Exercise Name in PT Reps/Minutes x3, 5 sec hold Comments good feedback response, painfree but stated does get prone/prob wont @ home Standing Exercises back extension Standing Exercise Name added to HEP Equipment Used hands on hip, forward pelvic glide Comments time to set up, good response stretch in LB, gastroc, soleus stretch Standing Exercise Name added to HEP Side right Reps/Minutes 30 each x2 Comments good feedback stretch with cues for proper set up/form Manual Therapy Treatment Soft Tissue Mobilization L leg, hip Body Location L piriformis, ITB, peroneals, lateral gastroc/soleus Mobilization Type Cross-Friction,Strumming Intensity/Depth Moderate Body Position Sidelying Comments Manual and discussion use of rolling pin, has done and continues to do learned in past w/ Nancy PT. Self-Care/Home Management Treatment Education Patient Education Body Mechanics,Home Exercise Program,Pain Management, Posture Other Education Further discussion LE and trunk alignment during sleeping with improvement in decrease lower leg symptoms, discussed use of pillow between BLEs if added pelvic alignment and spinal support as trialed during manual, pt stated is aware now might try if needed. PT-OP-T Assessment and Plan Start: 02/09/22 19:41 Freq: Status: Active Protocol: Document 02/17/22 07:31 SP (Rec: 02/17/22 08:21 SP [id number]) Physical Therapy Assessment Goals Three Impairment Decreased tolerance to activities due to onset of R lower leg pain. Short Term Goal (STG) Pt will be able to walk for exercise daily 2-3 miles regardless of prior activities . STG Duration 03/27/22 Alf Goal (LTG) Improve functional strength with pt able to carry laundry baskets without onset of pain. LTG Duration 04/24/22 Two Impairment R lower leg pain rated 0-4/10. Short Term Goal (STG) Pt will be able to sleep through the night without R lower leg pain STG Duration 03/15/22 Alf Goal (LTG) Pt will be able to take first steps in the morning with tolerable or no R lower leg pain LTG Duration 04/24/22 One Impairment Lacks apppropriate self care HEP. Alf Goal (LTG) Independent with a self care HEP. LTG Duration 05/14/22 Assessment Summary Assessment Pt responded well to manual, added peroneal glide discuss small gentle ankle AROM, reviewed past pelvic realignment with HOs for review painfree, good response to gastroc, soleus stretch ( discussed 1 LE at time) and back ext LS mobility nonsymptomatic. Trialed prone press on elbows nonsymptomatic but states wont probably perform at home, felt same stretch standing more apt to utilize. Pt reports utilizes rolling pin as instructed in past with PT and finds helful with flexibility in calf, R leg. Physical Therapy Plan Frequency and Duration Frequency of Treatment 2x/Week Plan of Care Start Date 02/13/22 Plan of Care End Date 04/24/22 Therapeutic Interventions Therapeutic Interventions Gait Training,Home Exercise Program,Joint Mobilizations, Manual Therapy,Neuromuscular Re-education,Patient/Caregiver Education,Self-Care/Home Management,Soft Tissue Mobilization,Taping, Therapeutic Exercises Modalities Cold Pack/Ice Massage,Electric Stimulation,Hot Packs, Traction- Mechanical Next Visit Focus/Plan Next Note Type Treatment Note Next Visit Plan Recheck response to LE ext, peroneal n glide, gastroc/ soleus stretch, recheck if R hip stretches: Piriform, fig 4 ok to continue and add for home. Next tx Continue Damon ext, POC: Pt education in proper body mechanics and review proper nighttime positioning. Check DTR's STM of R lower leg: check DKTC, and lateral trunk shift stretch to R; manual lumbar traction with pain; sacral/?lumbar mobs to correct L rotation, modalities for ms relaxation (MH/IFES to low back); K-tape to R Lower leg if needed.
--- NOTE | 2022-02-21 10:03 | PT.OTN ---
Current Diagnoses Pain in right leg (02/21/22) Physical Therapy Treatment Note PT-OP-A Visit Information Start: 02/09/22 19:41 Freq: Status: Active Protocol: Document 02/21/22 08:15 LRN (Rec: 02/21/22 09:03 LRN [id number]) Out-Patient Physical Therapy Visit Information Visit Information Visit Type Treatment Note Visit Start Time 08:15 Visit Stop Time 08:56 Total Visit Minutes 41 Visit Number 3 Evaluation Information Evaluation Date 02/13/22 Precautions Precautions Controlled HBP, Arthritis in fingers. PT-OP-B Current Condition Start: 02/09/22 19:41 Freq: Status: Active Protocol: Document 02/13/22 09:50 LRN (Rec: 02/13/22 11:12 LRN [id number]) Current Condition History of Current Condition Onset Date Jul 2021 Current Complaints R anterior, lateral and posteromedial lower leg, sometimes into big toe History of Current Condition R lower leg pain that sometimes radiates into the lateral ankle and big toe. Pain depends on the time of day and activity he is doing. Denies accident or injury. Noticed it playing [employer] 2x/week, (summer time 1x/week )during the school year after the first 2-3 games. Walks daily (3 miles) and as long as he doesn't do anything before the walk he can finish, otherwise he can only tolerate 1-2 miles before pain. Sometimes the pain goes away if he does not other activity after walking. Prior Treatments and Tests Arthritis salve, [place] sometimes helps decrease pain. Treatment Goals Patient/Caregiver Goals Pt goal is to sleep through the night without pain, to be able to walk for exercise daily 2-3 miles regardless of prior activities, to be able carry the laundry baskets without onset of pain. Prior Functional Status Baseline Function- ADL's Independent Baseline Function- Mobility Independent Baseline Function- Gait 2-3 miles walking daily Baseline Function- Recreation/Hobbies Ping pong 2x/week during school year and 1x/week during summer. Current Functional Impairments (Reported) Functional Limitations- ADL's Standing, sometimes vaccuming, sleep interruption if on L side with R leg hanging over, first steps in morning are painful. Carrying laudry basket causes L lower leg pain. Functional Limitations- Mobility/Gait Walking sidewalks in town 2-3 miles if having done no other previous activities. Functional Limitations- Recreation/ 1-2 ping pong games Hobbies Personal Factors Other Personal Factors That May Effect None. Therapy/Recovery PT-OP-C Subjective Start: 02/09/22 19:41 Freq: Status: Active Protocol: Document 02/21/22 08:15 LRN (Rec: 02/21/22 09:03 LRN [id number]) OP-PT Subjective Patient Comments Patient Comments States he is no longer waking up at night after changing the way he slept. After initial session states he is feeling the pain in his leg less after mowing the lawn. No pain currently. PT-OP-J Posture/Palpation/Skin Start: 02/09/22 19:41 Freq: Status: Active Protocol: Document 02/13/22 09:50 LRN (Rec: 02/13/22 11:12 LRN [id number]) Posture Evaluation Position Standing Head/C-Spine Posture Forward Head L-Spine Posture Shifted Left Shoulder Posture (R) Elevated Pelvis Posture (R) Iliac Crest Superior Hip Posture (L) Externally Rotated,(R) Externally Rotated Knee Posture (L) Ext. Tibial Torsion,(R) Ext. Tibial Torsion Ankle/Foot Posture (L) Pronated,(R) Calcaneal Inversion Foot Arch (L) Low Arch,(R) Low Arch Comments Posture Comments R handed Palpation Assessment Location Lumbar Palpation Location L/S interspinous and Spinous processes PA mob Palpation Findings Tenderness Palpation Details L rotated Sacrum Palpation Location Sacrum Palpation Details R rotated PT-OP-K Range of Motion Start: 02/09/22 19:41 Freq: Status: Active Protocol: Document 02/13/22 09:50 LRN (Rec: 02/13/22 11:12 LRN [id number]) Lumbar Spine Range of Motion Lumbar Spine Active Degrees Testing Position Standing Flexion 50 Extension 20 Rotation Left 20 Rotation Right 20 Lateral Flexion Left 12 Lateral Flexion Right 5 Comments FB 50/30 BB 20/10 Hip Goniometric Range of Motion Hip Right Passive Testing Position Supine Straight Leg Raise 70 Internal Rotation 20 External Rotation 20 Left Passive Testing Position Supine Straight Leg Raise 67 Internal Rotation 20 External Rotation 30 Knee Goniometric Range of Motion Knee Right Knee ROM WFL Yes Patient Position Supine Flexion Active (degrees) 120 Left Knee ROM WFL Yes Patient Position Supine Flexion Active (degrees) 120 PT-OP-L Special Tests Start: 02/09/22 19:41 Freq: Status: Active Protocol: Document 02/13/22 09:50 LRN (Rec: 02/13/22 11:12 LRN [id number]) Special Tests Lumbar Spine Special Tests Straight Leg Raise Test Results 70 R, 67 L Vertical Spine Loading Test Results Negative Standing Flexion Test Results Positive Comments Reproduced Tightness in lower legs bilaterally PT-OP-M Strength Start: 02/09/22 19:41 Freq: Status: Active Protocol: Document 02/13/22 09:50 LRN (Rec: 02/13/22 11:12 LRN [id number]) Trunk Strength Trunk Manual Muscle Testing Core Stabilization Pt is not able to maintain core stability with MMT of LE' s. Hip Strength Hip Manual Muscle Testing Right Flexion (L2) 5 Normal Extension (S1) 5 Normal Abduction 5 Normal Adduction 5 Normal External Rotation 5 Normal Internal Rotation 5 Normal Left Flexion (L2) 5 Normal Extension (S1) 5 Normal Abduction 5 Normal Adduction 5 Normal External Rotation 5 Normal Internal Rotation 5 Normal Knee Strength Knee Manual Muscle Testing Right Comments Generally 5/5 Left Comments Generally 5/5 Toe Strength Toe Manual Muscle Testing Right Great Toe Extension 5 Normal Left Great Toe Extension 1 Trace PT-OP-Q Treatments Start: 02/09/22 19:41 Freq: Status: Active Protocol: Document 02/21/22 08:15 LRN (Rec: 02/21/22 09:03 LRN [id number]) Therapeutic Exercises Supine Exercises Bridging Supine Exercise Name Bridging - review of HEP Reps/Minutes 10x Comments Painfree. R hip stretch Supine Exercise Name 1. piriformis stretch 2. 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 glide Supine Exercise Name Sciatic/peroneal n glide (HEP) Side left Equipment Used grasp behind thigh (discussed can use towel) w/ AP DF/PF, IV with PF Reps/Minutes 10sec Hold f/b 10x ankle mvmts x 3 Comments Cuing for training needed, states no pain, slow painfree range Prone Exercises Prone leg ext Prone Exercise Name Prone leg ext Side bilateral Reps/Minutes 10x each Comments V cuing to keep L hip down with leg lift on elbows Prone Exercise Name in PT Reps/Minutes x10, 5 sec hold Comments good feedback response, painfree but stated does get prone/prob wont @ home Standing Exercises back extension Standing Exercise Name Standing trunk ext (HEP) Equipment Used hands on hip, forward pelvic glide Reps/Minutes 10x Comments time to set up, good response stretch in LB, gastroc, soleus stretch Standing Exercise Name added to HEP Side right Reps/Minutes 30 each x2 Comments v cues for proper set up/form Manual Therapy Treatment Manual Traction Lumbar Details Lumbar traction w/belt & pt using UE's to assist with traction Body Position Hooklying Reps/Duration 5' Self-Care/Home Management Treatment Education Patient Education Home Exercise Program Activities Self-Care/Home Management Activities Issued & reviewed HEP: SPIKE Pt OK'd to do as I/S while in clinic prone leg lifts and to keep hips on surface with each leg lift, Pt cautioned to stop if pain. PT-OP-T Assessment and Plan Start: 02/09/22 19:41 Freq: Status: Active Protocol: Document 02/21/22 08:15 LRN (Rec: 02/21/22 09:03 LRN [id number]) Physical Therapy Assessment Goals Three Impairment Decreased tolerance to activities due to onset of R lower leg pain. Short Term Goal (STG) Pt will be able to walk for exercise daily 2-3 miles regardless of prior activities . STG Duration 03/27/22 Manager Valuation Goal (LTG) Improve functional strength with pt able to carry laundry baskets without onset of pain. LTG Duration 04/24/22 Two Impairment R lower leg pain rated 0-4/10. Short Term Goal (STG) Pt will be able to sleep through the night without R lower leg pain STG Duration 03/15/22 (02/21/22: MET GOAL) Alf Goal (LTG) Pt will be able to take first steps in the morning with tolerable or no R lower leg pain LTG Duration 04/24/22 (02/21/22: MET GOAL) One Impairment Lacks apppropriate self care HEP. Manager Valuation Goal (LTG) Independent with a self care HEP. (02/21/22: HEP: SPIKE ex; previous session ex's: standing trunk ext, Sciatic & peroneal n glide, gastoc/ soleus stretch) LTG Duration 05/14/22 (02/21/22: Progressing) Progress Towards Goals Progress Comments Progressed HEP. Pt can sleep through the night and walk first in AM without RLE pain. Assessment Summary Assessment Good recall of previously issued HEP. Pt having decrease RLE pain with activities. No obvious trunk lateral shift present. No trunk flex ex with rapid improvement with Damon trunk ext exercises. Pt not able to maintain core stability with prone L leg lift. Physical Therapy Plan Frequency and Duration Frequency of Treatment 2x/Week Plan of Care Start Date 02/13/22 Plan of Care End Date 04/24/22 Next Visit Focus/Plan Next Note Type Treatment Note Next Visit Plan Continue Damon ext. Add to HEP prone knee ext after review. POC: Check DTR's, if needed: STM of R lower leg . manual lumbar traction if having RLE pain; check if needed sacral/?lumbar mobs to correct L rotation. With start of walking and strengthening use modalities at end for ms relaxation and pain management (Ice/IFES to low back).
--- NOTE | 2022-02-24 08:17 | PT.OTN ---
Current Diagnoses Pain in right leg (02/24/22) Physical Therapy Treatment Note PT-OP-A Visit Information Start: 02/09/22 19:41 Freq: Status: Active Protocol: Document 02/24/22 07:31 SP (Rec: 02/24/22 08:23 SP [id number]) Out-Patient Physical Therapy Visit Information Visit Information Visit Type Treatment Note Visit Note Shanna MILLS provided instruction of ther ex to pt under direct supervision and guidence of OFFICE MACHINE TECHNICIAN Fatemeh throughout tx. Visit Start Time 07:31 Visit Stop Time 08:17 Total Visit Minutes 46 Visit Number 4 Number of OFFICE MACHINE TECHNICIAN Visits 1 Evaluation Information Evaluation Date 02/13/22 Precautions Precautions Controlled HBP, Arthritis in fingers. PT-OP-B Current Condition Start: 02/09/22 19:41 Freq: Status: Active Protocol: Document 02/13/22 09:50 LRN (Rec: 02/13/22 11:12 LRN [id number]) Current Condition History of Current Condition Onset Date Jul 2021 Current Complaints R anterior, lateral and posteromedial lower leg, sometimes into big toe History of Current Condition R lower leg pain that sometimes radiates into the lateral ankle and big toe. Pain depends on the time of day and activity he is doing. Denies accident or injury. Noticed it playing ping pong 2x/week, (summer time 1x/week )during the school year after the first 2-3 games. Walks daily (3 miles) and as long as he doesn't do anything before the walk he can finish, otherwise he can only tolerate 1-2 miles before pain. Sometimes the pain goes away if he does not other activity after walking. Prior Treatments and Tests Arthritis salve, Alleve sometimes helps decrease pain. Treatment Goals Patient/Caregiver Goals Pt goal is to sleep through the night without pain, to be able to walk for exercise daily 2-3 miles regardless of prior activities, to be able carry the laundry baskets without onset of pain. Prior Functional Status Baseline Function- ADL's Independent Baseline Function- Mobility Independent Baseline Function- Gait 2-3 miles walking daily Baseline Function- Recreation/Hobbies Ping pong 2x/week during school year and 1x/week during summer. Current Functional Impairments (Reported) Functional Limitations- ADL's Standing, sometimes vaccuming, sleep interruption if on L side with R leg hanging over, first steps in morning are painful. Carrying laudry basket causes L lower leg pain. Functional Limitations- Mobility/Gait Walking sidewalks in town 2-3 miles if having done no other previous activities. Functional Limitations- Recreation/ 1-2 ping pong games Hobbies Personal Factors Other Personal Factors That May Effect None. Therapy/Recovery PT-OP-C Subjective Start: 02/09/22 19:41 Freq: Status: Active Protocol: Document 02/24/22 07:31 SP (Rec: 02/24/22 08:23 SP [id number]) OP-PT Subjective Patient Comments Patient Comments Pt stated walkign walking 2.5- 3 miles a day, mowing. He climbed ladders/stairs this past week and not as bad of pain or tingling down R leg. PT-OP-J Posture/Palpation/Skin Start: 02/09/22 19:41 Freq: Status: Active Protocol: Document 02/13/22 09:50 LRN (Rec: 02/13/22 11:12 LRN [id number]) Posture Evaluation Position Standing Head/C-Spine Posture Forward Head L-Spine Posture Shifted Left Shoulder Posture (R) Elevated Pelvis Posture (R) Iliac Crest Superior Hip Posture (L) Externally Rotated,(R) Externally Rotated Knee Posture (L) Ext. Tibial Torsion,(R) Ext. Tibial Torsion Ankle/Foot Posture (L) Pronated,(R) Calcaneal Inversion Foot Arch (L) Low Arch,(R) Low Arch Comments Posture Comments R handed Palpation Assessment Location Lumbar Palpation Location L/S interspinous and Spinous processes PA mob Palpation Findings Tenderness Palpation Details L rotated Sacrum Palpation Location Sacrum Palpation Details R rotated PT-OP-K Range of Motion Start: 02/09/22 19:41 Freq: Status: Active Protocol: Document 02/13/22 09:50 LRN (Rec: 02/13/22 11:12 LRN [id number]) Lumbar Spine Range of Motion Lumbar Spine Active Degrees Testing Position Standing Flexion 50 Extension 20 Rotation Left 20 Rotation Right 20 Lateral Flexion Left 12 Lateral Flexion Right 5 Comments FB 50/30 BB 20/10 Hip Goniometric Range of Motion Hip Right Passive Testing Position Supine Straight Leg Raise 70 Internal Rotation 20 External Rotation 20 Left Passive Testing Position Supine Straight Leg Raise 67 Internal Rotation 20 External Rotation 30 Knee Goniometric Range of Motion Knee Right Knee ROM WFL Yes Patient Position Supine Flexion Active (degrees) 120 Left Knee ROM WFL Yes Patient Position Supine Flexion Active (degrees) 120 PT-OP-L Special Tests Start: 02/09/22 19:41 Freq: Status: Active Protocol: Document 02/13/22 09:50 LRN (Rec: 02/13/22 11:12 LRN [id number]) Special Tests Lumbar Spine Special Tests Straight Leg Raise Test Results 70 R, 67 L Vertical Spine Loading Test Results Negative Standing Flexion Test Results Positive Comments Reproduced Tightness in lower legs bilaterally PT-OP-M Strength Start: 02/09/22 19:41 Freq: Status: Active Protocol: Document 02/13/22 09:50 LRN (Rec: 02/13/22 11:12 LRN [id number]) Trunk Strength Trunk Manual Muscle Testing Core Stabilization Pt is not able to maintain core stability with MMT of LE' s. Hip Strength Hip Manual Muscle Testing Right Flexion (L2) 5 Normal Extension (S1) 5 Normal Abduction 5 Normal Adduction 5 Normal External Rotation 5 Normal Internal Rotation 5 Normal Left Flexion (L2) 5 Normal Extension (S1) 5 Normal Abduction 5 Normal Adduction 5 Normal External Rotation 5 Normal Internal Rotation 5 Normal Knee Strength Knee Manual Muscle Testing Right Comments Generally 5/5 Left Comments Generally 5/5 Toe Strength Toe Manual Muscle Testing Right Great Toe Extension 5 Normal Left Great Toe Extension 1 Trace PT-OP-Q Treatments Start: 02/09/22 19:41 Freq: Status: Active Protocol: Document 02/24/22 07:31 SP (Rec: 02/24/22 08:23 SP [id number]) Therapeutic Exercises Supine Exercises Past HEP review Supine Exercise Name HS,AP, hip IR/ER rot AROM, pirif/ITB stretch, KFO,ITB Reps/Minutes x5 reps each Comments good form and response Sciatic, peroneal n. glide Supine Exercise Name Sciatic/peroneal n glide (HEP) - supine and seated Side left Equipment Used grasp behind thigh (discussed can use towel) w/ AP DF/PF, IV with PF Reps/Minutes 10sec Hold f/b 10x ankle mvmts x 3 Comments Cuing for training needed, states no pain, slow painfree range Prone Exercises quadruped Prone Exercise Name UE/ LE ext: added to HEP Side bilateral Reps/Minutes x5 each LE Comments cued level pelvis during LE ext and use core fac, neutral CS, WBOS Prone leg ext Prone Exercise Name Prone leg ext Side bilateral Reps/Minutes 10x each Comments V cuing to keep L hip down with leg lift on elbows Prone Exercise Name reviewed HEP Reps/Minutes x10, 5 sec hold Comments good feedback response, painfree but stated does get prone/prob wont @ home Standing Exercises shld ext, paloff press Standing Exercise Name added toHEP Side bilateral Resistance TB #2 Equipment Used cued press out front navel not full ext Reps/Minutes 2x10 Comments time spent set up/form, did get little tingling lat R leg post paloff press back extension Standing Exercise Name Standing trunk ext (HEP) Equipment Used hands on hip, forward pelvic glide Reps/Minutes 10x Comments good form and response stretch in LB gastroc, soleus stretch Standing Exercise Name reviewed HEP Side right Reps/Minutes 30 each x2 Comments v cues for proper set up/form Self-Care/Home Management Treatment Education Patient Education Home Exercise Program Other Education Reviewed past HEP and recently added HEP. Cued core, neutral spine/pelvis. Initiated quadruped UE/ LE ext, standing TA UE ext, paloff press PT-OP-T Assessment and Plan Start: 02/09/22 19:41 Freq: Status: Active Protocol: Document 02/24/22 07:31 SP (Rec: 02/24/22 08:23 SP [id number]) Physical Therapy Assessment Goals Three Impairment Decreased tolerance to activities due to onset of R lower leg pain. Short Term Goal (STG) Pt will be able to walk for exercise daily 2-3 miles regardless of prior activities . 02/24/22: GOAL MET: no pain 3 miles with no pain this week. STG Duration 03/27/22 GOAL MET Beam Builder Helper Goal (LTG) Improve functional strength with pt able to carry laundry baskets without onset of pain. 02/24/22: Progressing: pt states pain not as bad (unable give pain scale rating) carrying laundry basket/carton improved less pain into R leg by 25%. LTG Duration 04/24/22 progressin02/24/22 One Impairment Lacks apppropriate self care HEP. Beam Builder Helper Goal (LTG) Independent with a self care HEP. (02/21/22: HEP: SPIKE ex; previous session ex's: standing trunk ext, Sciatic & peroneal n glide, gastoc/ soleus stretch) 02/24/22: scanned in prior HEP HOs brought today. added quad UE/LEext, TB shld ext and paloff press (rotational pressout). LTG Duration 05/14/22 (02/24/22: Progressing) Progress Towards Goals Progress Towards Goals Progressing Toward Goals Progress Comments Met STG #3. Assessment Summary Assessment Pt good feedback response and demonstration to HEP review past and recently added ther ex with less to no R leg pain symptoms with cuing for not aggressive end range performance and maintain neutral pelvis. Pt little tingling lat R leg post palloff press, cued hand positioning front navel not full ext and reviewed seated peroneal n glide and symtpoms went away. Pt good understanding of newly added and provided HOs. Pt would benefit from continued skilled therapy to progress strength and activity tolerance to complete lift/ carrying items for functional activities at home, grocery store. Physical Therapy Plan Frequency and Duration Frequency of Treatment 2x/Week Plan of Care Start Date 02/13/22 Plan of Care End Date 04/24/22 Therapeutic Interventions Therapeutic Interventions Gait Training,Home Exercise Program,Joint Mobilizations, Manual Therapy,Neuromuscular Re-education,Patient/Caregiver Education,Self-Care/Home Management,Soft Tissue Mobilization,Taping, Therapeutic Exercises Modalities Cold Pack/Ice Massage,Electric Stimulation,Hot Packs, Traction- Mechanical Next Visit Focus/Plan Next Note Type Treatment Note Next Visit Plan Recheck: bird dog (UE/ LE ext) , resisted standing shld ext/ palloff press. POC: Continue Damon ext. POC: Check DTR's, if needed: STM of R lower leg . manual lumbar traction if having RLE pain; check if needed sacral/?lumbar mobs to correct L rotation. With start of walking and strengthening use modalities at end for ms relaxation and pain management (Ice/IFES to low back).
--- NOTE | 2022-02-27 10:20 | PT.OTN ---
Current Diagnoses Pain in right leg (02/27/22) Physical Therapy Treatment Note PT-OP-A Visit Information Start: 02/09/22 19:41 Freq: Status: Active Protocol: Document 02/27/22 09:04 NBM (Rec: 02/27/22 10:19 NBM [id number]) Out-Patient Physical Therapy Visit Information Visit Information Visit Type Treatment Note Visit Start Time 09:05 Visit Stop Time 09:47 Total Visit Minutes 42 Visit Number 5 Number of MARINE SURVEYOR Visits 2 PT-OP-B Current Condition Start: 02/09/22 19:41 Freq: Status: Active Protocol: Document 02/13/22 09:50 LRN (Rec: 02/13/22 11:12 LRN [id number]) Current Condition History of Current Condition Onset Date Jul 2021 Current Complaints R anterior, lateral and posteromedial lower leg, sometimes into big toe History of Current Condition R lower leg pain that sometimes radiates into the lateral ankle and big toe. Pain depends on the time of day and activity he is doing. Denies accident or injury. Noticed it playing ping pong 2x/week, (summer time 1x/week )during the school year after the first 2-3 games. Walks daily (3 miles) and as long as he doesn't do anything before the walk he can finish, otherwise he can only tolerate 1-2 miles before pain. Sometimes the pain goes away if he does not other activity after walking. Prior Treatments and Tests Arthritis salve, Alleve sometimes helps decrease pain. Treatment Goals Patient/Caregiver Goals Pt goal is to sleep through the night without pain, to be able to walk for exercise daily 2-3 miles regardless of prior activities, to be able carry the laundry baskets without onset of pain. Prior Functional Status Baseline Function- ADL's Independent Baseline Function- Mobility Independent Baseline Function- Gait 2-3 miles walking daily Baseline Function- Recreation/Hobbies Ping pong 2x/week during school year and 1x/week during summer. Current Functional Impairments (Reported) Functional Limitations- ADL's Standing, sometimes vaccuming, sleep interruption if on L side with R leg hanging over, first steps in morning are painful. Carrying laudry basket causes L lower leg pain. Functional Limitations- Mobility/Gait Walking sidewalks in town 2-3 miles if having done no other previous activities. Functional Limitations- Recreation/ 1-2 ping pong games Hobbies Personal Factors Other Personal Factors That May Effect None. Therapy/Recovery PT-OP-C Subjective Start: 02/09/22 19:41 Freq: Status: Active Protocol: Document 02/27/22 09:04 NBM (Rec: 02/27/22 10:19 NBM [id number]) OP-PT Subjective Patient Comments Patient Comments Pt reports he had a 3-mile walk this morning and has no pain or tingling in back or leg. He has been doing his exercises. PT-OP-J Posture/Palpation/Skin Start: 02/09/22 19:41 Freq: Status: Active Protocol: Document 02/13/22 09:50 LRN (Rec: 02/13/22 11:12 LRN [id number]) Posture Evaluation Position Standing Head/C-Spine Posture Forward Head L-Spine Posture Shifted Left Shoulder Posture (R) Elevated Pelvis Posture (R) Iliac Crest Superior Hip Posture (L) Externally Rotated,(R) Externally Rotated Knee Posture (L) Ext. Tibial Torsion,(R) Ext. Tibial Torsion Ankle/Foot Posture (L) Pronated,(R) Calcaneal Inversion Foot Arch (L) Low Arch,(R) Low Arch Comments Posture Comments R handed Palpation Assessment Location Lumbar Palpation Location L/S interspinous and Spinous processes PA mob Palpation Findings Tenderness Palpation Details L rotated Sacrum Palpation Location Sacrum Palpation Details R rotated PT-OP-K Range of Motion Start: 02/09/22 19:41 Freq: Status: Active Protocol: Document 02/13/22 09:50 LRN (Rec: 02/13/22 11:12 LRN [id number]) Lumbar Spine Range of Motion Lumbar Spine Active Degrees Testing Position Standing Flexion 50 Extension 20 Rotation Left 20 Rotation Right 20 Lateral Flexion Left 12 Lateral Flexion Right 5 Comments FB 50/30 BB 20/10 Hip Goniometric Range of Motion Hip Right Passive Testing Position Supine Straight Leg Raise 70 Internal Rotation 20 External Rotation 20 Left Passive Testing Position Supine Straight Leg Raise 67 Internal Rotation 20 External Rotation 30 Knee Goniometric Range of Motion Knee Right Knee ROM WFL Yes Patient Position Supine Flexion Active (degrees) 120 Left Knee ROM WFL Yes Patient Position Supine Flexion Active (degrees) 120 PT-OP-L Special Tests Start: 02/09/22 19:41 Freq: Status: Active Protocol: Document 02/13/22 09:50 LRN (Rec: 02/13/22 11:12 LRN [id number]) Special Tests Lumbar Spine Special Tests Straight Leg Raise Test Results 70 R, 67 L Vertical Spine Loading Test Results Negative Standing Flexion Test Results Positive Comments Reproduced Tightness in lower legs bilaterally PT-OP-M Strength Start: 02/09/22 19:41 Freq: Status: Active Protocol: Document 02/13/22 09:50 LRN (Rec: 02/13/22 11:12 LRN [id number]) Trunk Strength Trunk Manual Muscle Testing Core Stabilization Pt is not able to maintain core stability with MMT of LE' s. Hip Strength Hip Manual Muscle Testing Right Flexion (L2) 5 Normal Extension (S1) 5 Normal Abduction 5 Normal Adduction 5 Normal External Rotation 5 Normal Internal Rotation 5 Normal Left Flexion (L2) 5 Normal Extension (S1) 5 Normal Abduction 5 Normal Adduction 5 Normal External Rotation 5 Normal Internal Rotation 5 Normal Knee Strength Knee Manual Muscle Testing Right Comments Generally 5/5 Left Comments Generally 5/5 Toe Strength Toe Manual Muscle Testing Right Great Toe Extension 5 Normal Left Great Toe Extension 1 Trace PT-OP-Q Treatments Start: 02/09/22 19:41 Freq: Status: Active Protocol: Document 02/27/22 09:04 NBM (Rec: 02/27/22 10:19 NBM [id number]) Gym Equipment Therapeutic Ball Core Exercise Details core activation focus Ball Size/Color green 65cm Body Position Sitting Comments 1. seated marching x10 ea 2. seated LAQs x10ea 3. sit backs x10 4. supine pec stretch w/ core engagement x60 SH Therapeutic Exercises Supine Exercises Bridging Supine Exercise Name Bridging - review of HEP Reps/Minutes 10x Comments Painfree. R hip stretch Supine Exercise Name 1. piriformis stretch 2. Fig 4 stretch-, f/b active stretch (L>R) HEP Side bilateral Reps/Minutes x30 ea Comments RLE tighter than LLE. Pt cued to press L knee to feel L stretch. Prone Exercises quadruped Prone Exercise Name UE/ LE ext: added to HEP Side bilateral Reps/Minutes x5 each LE Comments cued level pelvis during LE ext and use core fac, neutral CS, WBOS on elbows Prone Exercise Name reviewed HEP Reps/Minutes x10, 5 sec hold Comments good feedback response, painfree Standing Exercises QL Doorway stretch Standing Exercise Name added to HEP Side bilateral Reps/Minutes 2 x 30 Comments RLE tingling w/ L QL stretch resolved w/ cue not to twist Pec Doorway stretch Standing Exercise Name added to HEP Side bilateral Reps/Minutes 2x30 Comments very tight nely limiting shoulder retraction and posture shld ext, paloff press Standing Exercise Name 1. Paloff press 2. Resisted Trunk rotation-added to HEP Side bilateral Resistance TB #2 (two bands) Equipment Used cued press out front navel not full ext Reps/Minutes 2x10 Comments cue for starting position: toes forward and no trunk rotation. back extension Standing Exercise Name Standing trunk ext (HEP) Equipment Used hands on hip, forward pelvic glide Reps/Minutes 10x Comments Trialed hands on back instead of hips - improved LB & pec stretch reported gastroc, soleus stretch Standing Exercise Name reviewed HEP Side right Reps/Minutes 30 each x2 Comments v cues for proper set up/form Self-Care/Home Management Treatment Education Patient Education Home Exercise Program,Posture Other Education Added to HEP: QL doorway stretch, Pec doorway stretch, Resisted trunk rotation w/ theraband - HO given. Discussed breathholding and importance of breathing throughout exercises, especially when focusing on core strengthening. PT-OP-T Assessment and Plan Start: 02/09/22 19:41 Freq: Status: Active Protocol: Document 02/27/22 09:04 [facility] (Rec: 02/27/22 10:19 [facility] [id number]) Physical Therapy Assessment Impairments Impairments Activity Tolerance,Functional Mobility,Gait,Pain,ROM, Sensation,Soft Tissue Mobility Goals Three Impairment Decreased tolerance to activities due to onset of R lower leg pain. Short Term Goal (STG) Pt will be able to walk for exercise daily 2-3 miles regardless of prior activities . 02/24/22: GOAL MET: no pain 3 miles with no pain this week. STG Duration 03/27/22 GOAL MET Retirement Goal (LTG) Improve functional strength with pt able to carry laundry baskets without onset of pain. 02/24/22: Progressing: pt states pain not as bad (unable give pain scale rating) carrying laundry basket/carton improved less pain into R leg by 25%. LTG Duration 04/24/22 progressin02/24/22 One Impairment Lacks apppropriate self care HEP. Disbursing Agent Goal (LTG) Independent with a self care HEP. (02/21/22: HEP: SPIKE ex; previous session ex's: standing trunk ext, Sciatic & peroneal n glide, gastoc/ soleus stretch) 02/24/22: scanned in prior HEP HOs brought today. added quad UE/LEext, TB shld ext and paloff press (rotational pressout). LTG Duration 05/14/22 (02/24/22: Progressing) Assessment Summary Assessment Treatment focus today on reviewing HEP and progressing core strengthening. Pt demonstrates hip tightness with stretches R>L. RLE tingling w/ QL doorway stretch resolved w/ cue not to twist trunk. Pt requires cues for breathholding and toes forward R>L w/ standing exercises. Added to HEP: QL doorway stretch, Pec doorway stretch, Resisted trunk rotation w/ theraband - HO given. Physical Therapy Plan Frequency and Duration Frequency of Treatment 2x/Week Plan of Care Start Date 02/13/22 Plan of Care End Date 04/24/22 Therapeutic Interventions Therapeutic Interventions Gait Training,Home Exercise Program,Joint Mobilizations, Manual Therapy,Neuromuscular Re-education,Patient/Caregiver Education,Self-Care/Home Management,Soft Tissue Mobilization,Taping, Therapeutic Exercises Modalities Cold Pack/Ice Massage,Electric Stimulation,Hot Packs, Traction- Mechanical Next Visit Focus/Plan Next Note Type Treatment Note Next Visit Plan response to treatment / lawn mowing? Recheck: bird dog (UE/ LE ext) , resisted standing shld ext/ palloff press. POC: Continue Damon ext. POC: Check DTR's, if needed: STM of R lower leg . manual lumbar traction if having RLE pain; check if needed sacral/?lumbar mobs to correct L rotation. With start of walking and strengthening use modalities at end for ms relaxation and pain management (Ice/IFES to low back).
--- NOTE | 2022-03-02 09:00 | PT.OTN ---
Current Diagnoses Pain in right leg (03/02/22) Physical Therapy Treatment Note PT-OP-A Visit Information Start: 02/09/22 19:41 Freq: Status: Active Protocol: Document 03/02/22 08:20 SP (Rec: 03/02/22 09:01 SP [id number]) Out-Patient Physical Therapy Visit Information Visit Information Visit Type Treatment Note Visit Start Time 08:20 Visit Stop Time 09:00 Total Visit Minutes 40 Visit Number 6 Number of WASTE DISPOSAL LEAKAGE TESTER Visits 3 Evaluation Information Evaluation Date 02/13/22 Precautions Precautions Controlled HBP, Arthritis in fingers. PT-OP-B Current Condition Start: 02/09/22 19:41 Freq: Status: Active Protocol: Document 02/13/22 09:50 LRN (Rec: 02/13/22 11:12 LRN [id number]) Current Condition History of Current Condition Onset Date Jul 2021 Current Complaints R anterior, lateral and posteromedial lower leg, sometimes into big toe History of Current Condition R lower leg pain that sometimes radiates into the lateral ankle and big toe. Pain depends on the time of day and activity he is doing. Denies accident or injury. Noticed it playing [employer] 2x/week, (summer time 1x/week )during the school year after the first 2-3 games. Walks daily (3 miles) and as long as he doesn't do anything before the walk he can finish, otherwise he can only tolerate 1-2 miles before pain. Sometimes the pain goes away if he does not other activity after walking. Prior Treatments and Tests Arthritis salve, Alleve sometimes helps decrease pain. Treatment Goals Patient/Caregiver Goals Pt goal is to sleep through the night without pain, to be able to walk for exercise daily 2-3 miles regardless of prior activities, to be able carry the laundry baskets without onset of pain. Prior Functional Status Baseline Function- ADL's Independent Baseline Function- Mobility Independent Baseline Function- Gait 2-3 miles walking daily Baseline Function- Recreation/Hobbies Ping pong 2x/week during school year and 1x/week during summer. Current Functional Impairments (Reported) Functional Limitations- ADL's Standing, sometimes vaccuming, sleep interruption if on L side with R leg hanging over, first steps in morning are painful. Carrying laudry basket causes L lower leg pain. Functional Limitations- Mobility/Gait Walking sidewalks in town 2-3 miles if having done no other previous activities. Functional Limitations- Recreation/ 1-2 ping pong games Hobbies Personal Factors Other Personal Factors That May Effect None. Therapy/Recovery PT-OP-C Subjective Start: 02/09/22 19:41 Freq: Status: Active Protocol: Document 03/02/22 08:20 SP (Rec: 03/02/22 09:01 SP [id number]) OP-PT Subjective Patient Comments Patient Comments Pt reports no pain with sleeping or walking 3 miles now. Still has pain 5-6/10 climbing ladders. PT-OP-J Posture/Palpation/Skin Start: 02/09/22 19:41 Freq: Status: Active Protocol: Document 02/13/22 09:50 LRN (Rec: 02/13/22 11:12 LRN [id number]) Posture Evaluation Position Standing Head/C-Spine Posture Forward Head L-Spine Posture Shifted Left Shoulder Posture (R) Elevated Pelvis Posture (R) Iliac Crest Superior Hip Posture (L) Externally Rotated,(R) Externally Rotated Knee Posture (L) Ext. Tibial Torsion,(R) Ext. Tibial Torsion Ankle/Foot Posture (L) Pronated,(R) Calcaneal Inversion Foot Arch (L) Low Arch,(R) Low Arch Comments Posture Comments R handed Palpation Assessment Location Lumbar Palpation Location L/S interspinous and Spinous processes PA mob Palpation Findings Tenderness Palpation Details L rotated Sacrum Palpation Location Sacrum Palpation Details R rotated PT-OP-K Range of Motion Start: 02/09/22 19:41 Freq: Status: Active Protocol: Document 02/13/22 09:50 LRN (Rec: 02/13/22 11:12 LRN [id number]) Lumbar Spine Range of Motion Lumbar Spine Active Degrees Testing Position Standing Flexion 50 Extension 20 Rotation Left 20 Rotation Right 20 Lateral Flexion Left 12 Lateral Flexion Right 5 Comments FB 50/30 BB 20/10 Hip Goniometric Range of Motion Hip Right Passive Testing Position Supine Straight Leg Raise 70 Internal Rotation 20 External Rotation 20 Left Passive Testing Position Supine Straight Leg Raise 67 Internal Rotation 20 External Rotation 30 Knee Goniometric Range of Motion Knee Right Knee ROM WFL Yes Patient Position Supine Flexion Active (degrees) 120 Left Knee ROM WFL Yes Patient Position Supine Flexion Active (degrees) 120 PT-OP-L Special Tests Start: 02/09/22 19:41 Freq: Status: Active Protocol: Document 02/13/22 09:50 LRN (Rec: 02/13/22 11:12 LRN [id number]) Special Tests Lumbar Spine Special Tests Straight Leg Raise Test Results 70 R, 67 L Vertical Spine Loading Test Results Negative Standing Flexion Test Results Positive Comments Reproduced Tightness in lower legs bilaterally PT-OP-M Strength Start: 02/09/22 19:41 Freq: Status: Active Protocol: Document 02/13/22 09:50 LRN (Rec: 02/13/22 11:12 LRN [id number]) Trunk Strength Trunk Manual Muscle Testing Core Stabilization Pt is not able to maintain core stability with MMT of LE' s. Hip Strength Hip Manual Muscle Testing Right Flexion (L2) 5 Normal Extension (S1) 5 Normal Abduction 5 Normal Adduction 5 Normal External Rotation 5 Normal Internal Rotation 5 Normal Left Flexion (L2) 5 Normal Extension (S1) 5 Normal Abduction 5 Normal Adduction 5 Normal External Rotation 5 Normal Internal Rotation 5 Normal Knee Strength Knee Manual Muscle Testing Right Comments Generally 5/5 Left Comments Generally 5/5 Toe Strength Toe Manual Muscle Testing Right Great Toe Extension 5 Normal Left Great Toe Extension 1 Trace PT-OP-Q Treatments Start: 02/09/22 19:41 Freq: Status: Active Protocol: Document 03/02/22 08:20 SP (Rec: 03/02/22 09:01 SP [id number]) Therapeutic Exercises Supine Exercises R hip stretch Supine Exercise Name 1. piriformis stretch Hip IR toward opp knee 2. Fig 4 stretch- HEP reviewed Side bilateral Reps/Minutes 2 x30 ea Comments good feedback stretch = BLE Sciatic, peroneal n. glide Supine Exercise Name Sciatic/peroneal n glide (HEP) - opp LE straight supine Side left Equipment Used grasp behind thigh use towel w / AP DF/PF, IV with PF Reps/Minutes 10sec Hold f/b 10x ankle mvmts x 3 Comments good slow painfree range- states home seated as well Prone Exercises quadruped Prone Exercise Name UE/ LE ext: added to HEP Side bilateral Reps/Minutes x5 each LE Comments cued level pelvis during LE ext and use core fac, neutral CS, WBOS on elbows Prone Exercise Name reviewed HEP Reps/Minutes x10, 5 sec hold Comments cued painfree, TA fac and tolerant ROM range Sitting Exercises self STMs Sitting Exercise Name reviewed past calf rolling Side right Reps/Minutes 1 min (rocking/ rolling) Comments good feedback decreased calf tension Standing Exercises calf raises Standing Exercise Name added to HEP: parallel, toes in, toes out Side bilateral Equipment Used rail contact Reps/Minutes 5 reps x2 each position Comments good feedback stretch down and painfree up- assist ladder mob ankle. step ups Standing Exercise Name trial for home: assimulate ladder LE, TA strengthening for ladders Comments R lateral gastroc discomfort so stopped/ hold for now QL Doorway stretch Standing Exercise Name reviewed HEP Side bilateral Reps/Minutes 2 x 30 Comments good form painfree Pec Doorway stretch Standing Exercise Name reviewed HEP Side bilateral Reps/Minutes 2x30 Comments good form, painfree shld ext, paloff press Standing Exercise Name 1. Paloff press 2. Resisted Trunk rotation- reviewed HEP Side bilateral Resistance TB #2 (two bands) Equipment Used cued press out front navel not full ext Reps/Minutes 2x10 each Comments cue for starting position: toes forward and no trunk rotation. gastroc, soleus stretch Standing Exercise Name reviewed HEP Side right Reps/Minutes 30 each x2 Comments good form/ set up PT-OP-T Assessment and Plan Start: 02/09/22 19:41 Freq: Status: Active Protocol: Document 03/02/22 08:20 SP (Rec: 03/02/22 09:01 SP [id number]) Physical Therapy Assessment Goals Three Impairment Decreased tolerance to activities due to onset of R lower leg pain. Short Term Goal (STG) Pt will be able to walk for exercise daily 2-3 miles regardless of prior activities . 02/24/22: GOAL MET: no pain 3 miles with no pain this week. STG Duration 03/27/22 GOAL MET Truss Builder Goal (LTG) Improve functional strength with pt able to carry laundry baskets without onset of pain. 02/24/22: Progressing: pt states pain not as bad (unable give pain scale rating) carrying laundry basket/carton improved less pain into R leg by 25%. 03/02/22: GOAL MET: no pain anymore. LTG Duration 04/24/22 GOAL MET 03/02/22 One Impairment Lacks apppropriate self care HEP. Truss Builder Goal (LTG) Independent with a self care HEP. (02/21/22: HEP: SPIKE ex; previous session ex's: standing trunk ext, Sciatic & peroneal n glide, gastoc/ soleus stretch) 02/24/22: scanned in prior HEP HOs brought today. added quad UE/LEext, TB shld ext and paloff press (rotational pressout). 03/02/22: added calf con/ eccentric raises off step, reviewed rolling pin R calf. LTG Duration 05/14/22 (03/02/22: Progressing) Progress Towards Goals Progress Towards Goals Progressing Toward Goals Progress Comments LTG #3 MET Assessment Summary Assessment Pt good response to HEP review stretching and core resistance. Reviewed past self rolling calf and concentric/ eccentric calf raises 3 positions with no adverse affects to assist mobilize calf and ankle to allow decrease R lateral calf pain with good response to allow climbing ladder, last symptom getting. Physical Therapy Plan Frequency and Duration Frequency of Treatment 2x/Week Plan of Care Start Date 02/13/22 Plan of Care End Date 04/24/22 Therapeutic Interventions Therapeutic Interventions Gait Training,Home Exercise Program,Joint Mobilizations, Manual Therapy,Neuromuscular Re-education,Patient/Caregiver Education,Self-Care/Home Management,Soft Tissue Mobilization,Taping, Therapeutic Exercises Modalities Cold Pack/Ice Massage,Electric Stimulation,Hot Packs, Traction- Mechanical Next Visit Focus/Plan Next Note Type Treatment Note Next Visit Plan Response to ladder climbing. Recheck 3 way calf raises. POC: Continue Damon ext and core fac. POC: Check DTR's, if needed: STM of R lower leg . manual lumbar traction if having RLE pain; check if needed sacral/?lumbar mobs to correct L rotation. With start of walking and strengthening use modalities at end for ms relaxation and pain management (Ice/IFES to low back).
--- NOTE | 2022-03-06 18:09 | PT.OTN ---
Current Diagnoses Pain in right leg (03/06/22) Physical Therapy Treatment Note PT-OP-A Visit Information Start: 02/09/22 19:41 Freq: Status: Active Protocol: Document 03/06/22 08:17 LRN (Rec: 03/06/22 09:07 LRN [id number]) Out-Patient Physical Therapy Visit Information Visit Information Visit Type Treatment Note Visit Start Time 08:17 Visit Stop Time 09:15 Total Visit Minutes 58 Visit Number 7 Evaluation Information Evaluation Date 02/13/22 Precautions Precautions Controlled HBP, Arthritis in fingers. PT-OP-B Current Condition Start: 02/09/22 19:41 Freq: Status: Active Protocol: Document 02/13/22 09:50 LRN (Rec: 02/13/22 11:12 LRN [id number]) Current Condition History of Current Condition Onset Date Jul 2021 Current Complaints R anterior, lateral and posteromedial lower leg, sometimes into big toe History of Current Condition R lower leg pain that sometimes radiates into the lateral ankle and big toe. Pain depends on the time of day and activity he is doing. Denies accident or injury. Noticed it playing [employer] 2x/week, (summer time 1x/week )during the school year after the first 2-3 games. Walks daily (3 miles) and as long as he doesn't do anything before the walk he can finish, otherwise he can only tolerate 1-2 miles before pain. Sometimes the pain goes away if he does not other activity after walking. Prior Treatments and Tests Arthritis salve, Alleve sometimes helps decrease pain. Treatment Goals Patient/Caregiver Goals Pt goal is to sleep through the night without pain, to be able to walk for exercise daily 2-3 miles regardless of prior activities, to be able carry the laundry baskets without onset of pain. Prior Functional Status Baseline Function- ADL's Independent Baseline Function- Mobility Independent Baseline Function- Gait 2-3 miles walking daily Baseline Function- Recreation/Hobbies Ping pong 2x/week during school year and 1x/week during summer. Current Functional Impairments (Reported) Functional Limitations- ADL's Standing, sometimes vaccuming, sleep interruption if on L side with R leg hanging over, first steps in morning are painful. Carrying laudry basket causes L lower leg pain. Functional Limitations- Mobility/Gait Walking sidewalks in town 2-3 miles if having done no other previous activities. Functional Limitations- Recreation/ 1-2 ping pong games Hobbies Personal Factors Other Personal Factors That May Effect None. Therapy/Recovery PT-OP-C Subjective Start: 02/09/22 19:41 Freq: Status: Active Protocol: Document 03/06/22 08:17 LRN (Rec: 03/06/22 09:07 LRN [id number]) OP-PT Subjective Patient Comments Patient Comments Pain with climbing ladders- ascending & descending. States when he has knee pain, now he can sit for 5 minutes and the pain diminishes so he can walk again, but initially was not able to walk for quite awhile afterwards. States to start he has no pain in the R hip/LE, but tingling when doing doorway QL stretch. PT-OP-J Posture/Palpation/Skin Start: 02/09/22 19:41 Freq: Status: Active Protocol: Document 02/13/22 09:50 LRN (Rec: 02/13/22 11:12 LRN [id number]) Posture Evaluation Position Standing Head/C-Spine Posture Forward Head L-Spine Posture Shifted Left Shoulder Posture (R) Elevated Pelvis Posture (R) Iliac Crest Superior Hip Posture (L) Externally Rotated,(R) Externally Rotated Knee Posture (L) Ext. Tibial Torsion,(R) Ext. Tibial Torsion Ankle/Foot Posture (L) Pronated,(R) Calcaneal Inversion Foot Arch (L) Low Arch,(R) Low Arch Comments Posture Comments R handed Palpation Assessment Location Lumbar Palpation Location L/S interspinous and Spinous processes PA mob Palpation Findings Tenderness Palpation Details L rotated Sacrum Palpation Location Sacrum Palpation Details R rotated PT-OP-K Range of Motion Start: 02/09/22 19:41 Freq: Status: Active Protocol: Document 02/13/22 09:50 LRN (Rec: 02/13/22 11:12 LRN [id number]) Lumbar Spine Range of Motion Lumbar Spine Active Degrees Testing Position Standing Flexion 50 Extension 20 Rotation Left 20 Rotation Right 20 Lateral Flexion Left 12 Lateral Flexion Right 5 Comments FB 50/30 BB 20/10 Hip Goniometric Range of Motion Hip Right Passive Testing Position Supine Straight Leg Raise 70 Internal Rotation 20 External Rotation 20 Left Passive Testing Position Supine Straight Leg Raise 67 Internal Rotation 20 External Rotation 30 Knee Goniometric Range of Motion Knee Right Knee ROM WFL Yes Patient Position Supine Flexion Active (degrees) 120 Left Knee ROM WFL Yes Patient Position Supine Flexion Active (degrees) 120 PT-OP-L Special Tests Start: 02/09/22 19:41 Freq: Status: Active Protocol: Document 02/13/22 09:50 LRN (Rec: 02/13/22 11:12 LRN [id number]) Special Tests Lumbar Spine Special Tests Straight Leg Raise Test Results 70 R, 67 L Vertical Spine Loading Test Results Negative Standing Flexion Test Results Positive Comments Reproduced Tightness in lower legs bilaterally PT-OP-M Strength Start: 02/09/22 19:41 Freq: Status: Active Protocol: Document 02/13/22 09:50 LRN (Rec: 02/13/22 11:12 LRN [id number]) Trunk Strength Trunk Manual Muscle Testing Core Stabilization Pt is not able to maintain core stability with MMT of LE' s. Hip Strength Hip Manual Muscle Testing Right Flexion (L2) 5 Normal Extension (S1) 5 Normal Abduction 5 Normal Adduction 5 Normal External Rotation 5 Normal Internal Rotation 5 Normal Left Flexion (L2) 5 Normal Extension (S1) 5 Normal Abduction 5 Normal Adduction 5 Normal External Rotation 5 Normal Internal Rotation 5 Normal Knee Strength Knee Manual Muscle Testing Right Comments Generally 5/5 Left Comments Generally 5/5 Toe Strength Toe Manual Muscle Testing Right Great Toe Extension 5 Normal Left Great Toe Extension 1 Trace PT-OP-Q Treatments Start: 02/09/22 19:41 Freq: Status: Active Protocol: Document 03/06/22 08:17 LRN (Rec: 03/06/22 09:07 LRN [id number]) Therapeutic Exercises Supine Exercises Sciatic, peroneal n. glide Supine Exercise Name Sciatic/peroneal n glide (HEP) - opp LE straight supine Side right Equipment Used grasp behind thigh use towel w / AP DF/PF, IV with PF Reps/Minutes 10sec Hold f/b 10x ankle mvmts x 3 Comments good slow painfree range- states home seated as well Prone Exercises quadruped Prone Exercise Name UE/ LE ext: added to HEP Side bilateral Reps/Minutes 5x 2 each LE Comments cued level pelvis during LLE ext and use core fac, neutral CS, WBOS Prone leg ext Prone Exercise Name ALternating prone leg ext Side bilateral Reps/Minutes 15x each Comments V cuing to keep L hip down with leg lift on elbows Prone Exercise Name SPIKE/HEP Reps/Minutes 15x 2 Comments cued painfree, TA fac and tolerant ROM range Standing Exercises Up/Down stairs Standing Exercise Name Stairs: MWM of PA at R L4, L5 . Reps/Minutes 5x calf raises Standing Exercise Name HEP: parallel, toes in, toes out Side bilateral Equipment Used rail contact Reps/Minutes 8 reps x2 each position Comments good feedback stretch down and painfree up- assist ladder mob ankle. QL Doorway stretch Standing Exercise Name HEP: Gentle on Left side. Side bilateral Reps/Minutes 2 x 30 Comments Cuing for TA tightening, good form painfree. Pec Doorway stretch Standing Exercise Name reviewed HEP Side bilateral Reps/Minutes 2x30 Comments Cuing to tighten core, good form, painfree, stretch to anterior shoulders. back extension Standing Exercise Name Standing trunk ext (HEP) Equipment Used hands on hip, forward pelvic glide Reps/Minutes 10x, 1-2 sec hold Comments Hands on sides, cued for 1-2 sec stretch. Manual Therapy Treatment Manual Techniques MWM Type PA at level of L5 transverse process with descending of stairs. Body Position Standing Reps/Duration Up/Down stairs x 2 PT-OP-R Modalities Start: 02/09/22 19:41 Freq: Status: Active Protocol: Document 03/06/22 08:17 LRN (Rec: 03/06/22 09:07 LRN [id number]) Electric Stimulation Electric Stimulation [L/S] Body Location L/S, pads upper gluts & L2 Intensity 14 Target/Sweep Sweep Patient Position Prone Combined With Heat/Cold Hot Pack Comments HP to back PT-OP-T Assessment and Plan Start: 02/09/22 19:41 Freq: Status: Active Protocol: Document 03/06/22 08:17 LRN (Rec: 03/06/22 09:07 LRN [id number]) Physical Therapy Assessment Goals Three Impairment Decreased tolerance to activities due to onset of R lower leg pain. Short Term Goal (STG) Pt will be able to walk for exercise daily 2-3 miles regardless of prior activities . 02/24/22: GOAL MET: no pain 3 miles with no pain this week. STG Duration 03/27/22 GOAL MET Graphic Editor Goal (LTG) Improve functional strength with pt able to carry laundry baskets without onset of pain. 02/24/22: Progressing: pt states pain not as bad (unable give pain scale rating) carrying laundry basket/carton improved less pain into R leg by 25%. 03/02/22: GOAL MET: no pain anymore. LTG Duration 04/24/22 GOAL MET 03/02/22 Two Impairment R lower leg pain rated 0-4/10. Short Term Goal (STG) Pt will be able to sleep through the night without R lower leg pain STG Duration 03/15/22 (02/21/22: MET GOAL) Mcfp Goal (LTG) Pt will be able to take first steps in the morning with tolerable or no R lower leg pain LTG Duration 04/24/22 (02/21/22: MET GOAL) One Impairment Lacks apppropriate self care HEP. Mcfp Goal (LTG) Independent with a self care HEP. (02/21/22: HEP: SPIKE ex; previous session ex's: standing trunk ext, Sciatic & peroneal n glide, gastoc/ soleus stretch) 02/24/22: scanned in prior HEP HOs brought today. added quad UE/LEext, TB shld ext and paloff press (rotational pressout). 03/02/22: added calf con/ eccentric raises off step, reviewed rolling pin R calf. LTG Duration 05/14/22 (03/02/22: Progressing) Assessment Summary Assessment Pt has c/o R knee pain with ladder climbing. He does 3- way calf raises properly. Pt able to advance reps w/lumbar ext ex's w/o onset of LE pain/ tingling. R lower leg pain due to R rot of L4, L5 with stairs, + response to MWM. + response to MH/EStim with no pain after therapy. Physical Therapy Plan Frequency and Duration Frequency of Treatment 2x/Week Plan of Care Start Date 02/13/22 Plan of Care End Date 04/24/22 Next Visit Focus/Plan Next Note Type Treatment Note Next Visit Plan POC: Continue Damon ext and core stab. to eliminate pain in R knee with stair ambulation. Check DTR's, if needed: STM of R lower leg. manual lumbar traction if having RLE pain; check if needed sacral/?lumbar mobs to correct L rotation. With start of walking and strengthening use modalities at end for ms relaxation and pain management (MH/IFES to low back to end).
--- NOTE | 2022-03-09 08:15 | PT.OTN ---
Current Diagnoses Pain in right leg (03/09/22) Physical Therapy Treatment Note PT-OP-A Visit Information Start: 02/09/22 19:41 Freq: Status: Active Protocol: Document 03/09/22 07:31 SP (Rec: 03/09/22 08:17 SP [id number]) Out-Patient Physical Therapy Visit Information Visit Information Visit Type Treatment Note Visit Start Time 07:31 Visit Stop Time 08:15 Total Visit Minutes 44 Visit Number 8 Number of MACHINE SET UP OPERATOR PAPER GOODS Visits 1 Evaluation Information Evaluation Date 02/13/22 Precautions Precautions Controlled HBP, Arthritis in fingers. PT-OP-B Current Condition Start: 02/09/22 19:41 Freq: Status: Active Protocol: Document 02/13/22 09:50 LRN (Rec: 02/13/22 11:12 LRN [id number]) Current Condition History of Current Condition Onset Date Jul 2021 Current Complaints R anterior, lateral and posteromedial lower leg, sometimes into big toe History of Current Condition R lower leg pain that sometimes radiates into the lateral ankle and big toe. Pain depends on the time of day and activity he is doing. Denies accident or injury. Noticed it playing [employer] 2x/week, (summer time 1x/week )during the school year after the first 2-3 games. Walks daily (3 miles) and as long as he doesn't do anything before the walk he can finish, otherwise he can only tolerate 1-2 miles before pain. Sometimes the pain goes away if he does not other activity after walking. Prior Treatments and Tests Arthritis salve, Alleve sometimes helps decrease pain. Treatment Goals Patient/Caregiver Goals Pt goal is to sleep through the night without pain, to be able to walk for exercise daily 2-3 miles regardless of prior activities, to be able carry the laundry baskets without onset of pain. Prior Functional Status Baseline Function- ADL's Independent Baseline Function- Mobility Independent Baseline Function- Gait 2-3 miles walking daily Baseline Function- Recreation/Hobbies Ping pong 2x/week during school year and 1x/week during summer. Current Functional Impairments (Reported) Functional Limitations- ADL's Standing, sometimes vaccuming, sleep interruption if on L side with R leg hanging over, first steps in morning are painful. Carrying laudry basket causes L lower leg pain. Functional Limitations- Mobility/Gait Walking sidewalks in town 2-3 miles if having done no other previous activities. Functional Limitations- Recreation/ 1-2 ping pong games Hobbies Personal Factors Other Personal Factors That May Effect None. Therapy/Recovery PT-OP-C Subjective Start: 02/09/22 19:41 Freq: Status: Active Protocol: Document 03/09/22 07:31 SP (Rec: 03/09/22 08:17 SP [id number]) OP-PT Subjective Patient Comments Patient Comments Pt stated is able to mow lawn now and no problems, was able to climb ladder to get peaches off for about an hour and little in lateral R leg not as much to prevent from finishing activity. He stated if just sits down for few minutes rest, do stretches goes away and returns to activity. Overall see alot improvement. Patient Reported Progress Improving PT-OP-J Posture/Palpation/Skin Start: 02/09/22 19:41 Freq: Status: Active Protocol: Document 02/13/22 09:50 LRN (Rec: 02/13/22 11:12 LRN [id number]) Posture Evaluation Position Standing Head/C-Spine Posture Forward Head L-Spine Posture Shifted Left Shoulder Posture (R) Elevated Pelvis Posture (R) Iliac Crest Superior Hip Posture (L) Externally Rotated,(R) Externally Rotated Knee Posture (L) Ext. Tibial Torsion,(R) Ext. Tibial Torsion Ankle/Foot Posture (L) Pronated,(R) Calcaneal Inversion Foot Arch (L) Low Arch,(R) Low Arch Comments Posture Comments R handed Palpation Assessment Location Lumbar Palpation Location L/S interspinous and Spinous processes PA mob Palpation Findings Tenderness Palpation Details L rotated Sacrum Palpation Location Sacrum Palpation Details R rotated PT-OP-K Range of Motion Start: 02/09/22 19:41 Freq: Status: Active Protocol: Document 02/13/22 09:50 LRN (Rec: 02/13/22 11:12 LRN [id number]) Lumbar Spine Range of Motion Lumbar Spine Active Degrees Testing Position Standing Flexion 50 Extension 20 Rotation Left 20 Rotation Right 20 Lateral Flexion Left 12 Lateral Flexion Right 5 Comments FB 50/30 BB 20/10 Hip Goniometric Range of Motion Hip Right Passive Testing Position Supine Straight Leg Raise 70 Internal Rotation 20 External Rotation 20 Left Passive Testing Position Supine Straight Leg Raise 67 Internal Rotation 20 External Rotation 30 Knee Goniometric Range of Motion Knee Right Knee ROM WFL Yes Patient Position Supine Flexion Active (degrees) 120 Left Knee ROM WFL Yes Patient Position Supine Flexion Active (degrees) 120 PT-OP-L Special Tests Start: 02/09/22 19:41 Freq: Status: Active Protocol: Document 02/13/22 09:50 LRN (Rec: 02/13/22 11:12 LRN [id number]) Special Tests Lumbar Spine Special Tests Straight Leg Raise Test Results 70 R, 67 L Vertical Spine Loading Test Results Negative Standing Flexion Test Results Positive Comments Reproduced Tightness in lower legs bilaterally PT-OP-M Strength Start: 02/09/22 19:41 Freq: Status: Active Protocol: Document 02/13/22 09:50 LRN (Rec: 02/13/22 11:12 LRN [id number]) Trunk Strength Trunk Manual Muscle Testing Core Stabilization Pt is not able to maintain core stability with MMT of LE' s. Hip Strength Hip Manual Muscle Testing Right Flexion (L2) 5 Normal Extension (S1) 5 Normal Abduction 5 Normal Adduction 5 Normal External Rotation 5 Normal Internal Rotation 5 Normal Left Flexion (L2) 5 Normal Extension (S1) 5 Normal Abduction 5 Normal Adduction 5 Normal External Rotation 5 Normal Internal Rotation 5 Normal Knee Strength Knee Manual Muscle Testing Right Comments Generally 5/5 Left Comments Generally 5/5 Toe Strength Toe Manual Muscle Testing Right Great Toe Extension 5 Normal Left Great Toe Extension 1 Trace PT-OP-Q Treatments Start: 02/09/22 19:41 Freq: Status: Active Protocol: Document 03/09/22 07:31 SP (Rec: 03/09/22 08:17 SP [id number]) Cardio Equipment Recumbent Bicycle Duration (Minutes) 5 Resistance 5 Seat Position see 3 Other 43 RPM Gym Equipment Shuttle Recovery SL squat Details good Resistance 75 # Shuttle Recovery Platform Stable Reps/Time 2x10 DL squat Details good form and pacing Resistance 125# Shuttle Recovery Platform Stable Reps/Time x20 Shuttle Balance Blue>red clip Details Red: WBOS, NBOS Reps/Duration f/b/s Comments 1. WBOS: wt shift, rocking, HTs, EC up to 14 sec CG- 10%A 2. NBOS: wt shift, rocking, HTs (no UE) CG-10%A 3. stagger: wt shift, rocking, HTs (no UE) CG-20%A *cued glut/core facilitation decrease unsteadiness Therapeutic Exercises Supine Exercises TA sequencial september Supine Exercise Name added to HEP: legs in/out extension Side bilateral Reps/Minutes 2x5 lead each LE Comments cue x1 for form, no tingling in RLE Prone Exercises quadruped Prone Exercise Name UE/ LE ext: reviewed HEP Side bilateral Reps/Minutes x10 each LE Comments cued level pelvis during LLE ext and use core fac, neutral CS, WBOS Prone leg ext Prone Exercise Name ALternating prone leg ext Side bilateral Reps/Minutes 15 reps, 2 sec hold Comments good B hip stable on floor on elbows Prone Exercise Name SPIKE/HEP Reps/Minutes 15x 2 Comments cued painfree, TA fac and tolerant ROM range Standing Exercises Up/Down stairs Standing Exercise Name Single leg step up/tap: HEP reviewed Reps/Minutes x10 repetitive each LE Comments reported little tight peroneals but no tingling calf raises Standing Exercise Name HEP: parallel, toes in, toes out Side bilateral Equipment Used rail contact Reps/Minutes 8 reps x2 each position Comments performs pre use ladder mob ankle. Neuro Re-Education Treatment Balance Activities SLS Details HEP reviewed performed in past Comments RLE 30s, LLE 14s obstacle course Surface 4 hurdles, blue/green/blace foam, 2 pods Reps/Duration x3 laps Comments CGA, foot caught 1 debi self recovery. Good stabiltiy, cued slower pacing for safety balance recovery/ foot placement. Self-Care/Home Management Treatment Education Patient Education Home Exercise Program,Posture PT-OP-R Modalities Start: 02/09/22 19:41 Freq: Status: Active Protocol: Document 03/06/22 08:17 LRN (Rec: 03/06/22 09:07 LRN [id number]) Electric Stimulation Electric Stimulation [L/S] Body Location L/S, pads upper gluts & L2 Intensity 14 Target/Sweep Sweep Patient Position Prone Combined With Heat/Cold Hot Pack Comments HP to back PT-OP-T Assessment and Plan Start: 02/09/22 19:41 Freq: Status: Active Protocol: Document 03/09/22 07:31 SP (Rec: 03/09/22 08:17 SP [id number]) Physical Therapy Assessment Goals Three Impairment Decreased tolerance to activities due to onset of R lower leg pain. Short Term Goal (STG) Pt will be able to walk for exercise daily 2-3 miles regardless of prior activities . 02/24/22: GOAL MET: no pain 3 miles with no pain this week. STG Duration 03/27/22 GOAL MET Fpc Goal (LTG) Improve functional strength with pt able to carry laundry baskets without onset of pain. 02/24/22: Progressing: pt states pain not as bad (unable give pain scale rating) carrying laundry basket/carton improved less pain into R leg by 25%. 03/02/22: GOAL MET: no pain anymore. LTG Duration 04/24/22 GOAL MET 03/02/22 Two Impairment R lower leg pain rated 0-4/10. Short Term Goal (STG) Pt will be able to sleep through the night without R lower leg pain STG Duration 03/15/22 (02/21/22: MET GOAL) Leadership Development Instructor Goal (LTG) Pt will be able to take first steps in the morning with tolerable or no R lower leg pain LTG Duration 04/24/22 (02/21/22: MET GOAL) One Impairment Lacks apppropriate self care HEP. Leadership Development Instructor Goal (LTG) Independent with a self care HEP. (02/21/22: HEP: SPIKE ex; previous session ex's: standing trunk ext, Sciatic & peroneal n glide, gastoc/ soleus stretch) 02/24/22: scanned in prior HEP HOs brought today. added quad UE/LEext, TB shld ext and paloff press (rotational pressout). 03/02/22: added calf con/ eccentric raises off step, reviewed rolling pin R calf. LTG Duration 05/14/22 (03/02/22: Progressing) Assessment Summary Assessment Pt responded well to core fac sequencial september with no tingling in R peroneal to continue at home. SLS and all other HEP review good muscle effor and just little tightness pain/tingle free today. Fair stability with uneven surface activities. Physical Therapy Plan Frequency and Duration Frequency of Treatment 2x/Week Plan of Care Start Date 02/13/22 Plan of Care End Date 04/24/22 Therapeutic Interventions Therapeutic Interventions Gait Training,Home Exercise Program,Joint Mobilizations, Manual Therapy,Neuromuscular Re-education,Patient/Caregiver Education,Self-Care/Home Management,Soft Tissue Mobilization,Taping, Therapeutic Exercises Modalities Cold Pack/Ice Massage,Electric Stimulation,Hot Packs, Traction- Mechanical Next Visit Focus/Plan Next Note Type Treatment Note Next Visit Plan Recheck core september. POC: Continue Damon ext and core stab. to eliminate pain in R knee with stair ambulation. Check DTR's, if needed: STM of R lower leg. manual lumbar traction if having RLE pain; check if needed sacral/?lumbar mobs to correct L rotation. With start of walking and strengthening use modalities at end for ms relaxation and pain management (MH/IFES to low back to end).
--- NOTE | 2022-03-22 16:29 | PT.OTN ---
Current Diagnoses Pain in right leg (03/22/22) Physical Therapy Treatment Note PT-OP-A Visit Information Start: 02/09/22 19:41 Freq: Status: Active Protocol: Document 03/22/22 08:20 NBM (Rec: 03/22/22 09:04 NBM [id number]) Out-Patient Physical Therapy Visit Information Visit Information Visit Type Treatment Note Visit Start Time 08:15 Visit Stop Time 09:00 Total Visit Minutes 45 Visit Number 9 Number of SKIMMER REVERBERATORY Visits 2 PT-OP-B Current Condition Start: 02/09/22 19:41 Freq: Status: Active Protocol: Document 02/13/22 09:50 LRN (Rec: 02/13/22 11:12 LRN [id number]) Current Condition History of Current Condition Onset Date Jul 2021 Current Complaints R anterior, lateral and posteromedial lower leg, sometimes into big toe History of Current Condition R lower leg pain that sometimes radiates into the lateral ankle and big toe. Pain depends on the time of day and activity he is doing. Denies accident or injury. Noticed it playing ping pong 2x/week, (summer time 1x/week )during the school year after the first 2-3 games. Walks daily (3 miles) and as long as he doesn't do anything before the walk he can finish, otherwise he can only tolerate 1-2 miles before pain. Sometimes the pain goes away if he does not other activity after walking. Prior Treatments and Tests Arthritis salve, Alleve sometimes helps decrease pain. Treatment Goals Patient/Caregiver Goals Pt goal is to sleep through the night without pain, to be able to walk for exercise daily 2-3 miles regardless of prior activities, to be able carry the laundry baskets without onset of pain. Prior Functional Status Baseline Function- ADL's Independent Baseline Function- Mobility Independent Baseline Function- Gait 2-3 miles walking daily Baseline Function- Recreation/Hobbies Ping pong 2x/week during school year and 1x/week during summer. Current Functional Impairments (Reported) Functional Limitations- ADL's Standing, sometimes vaccuming, sleep interruption if on L side with R leg hanging over, first steps in morning are painful. Carrying laudry basket causes L lower leg pain. Functional Limitations- Mobility/Gait Walking sidewalks in town 2-3 miles if having done no other previous activities. Functional Limitations- Recreation/ 1-2 ping pong games Hobbies Personal Factors Other Personal Factors That May Effect None. Therapy/Recovery PT-OP-C Subjective Start: 02/09/22 19:41 Freq: Status: Active Protocol: Document 03/22/22 08:20 NBM (Rec: 03/22/22 09:04 NBM [id number]) OP-PT Subjective Patient Comments Patient Comments Pt reports his week was good until yesterday. Yesterday evening he reports he went for a 3-mile walk. During the walk his leg started a deep ache, and he kept walking and then used heat and stretched when he got home. It went away after two hours. He has a bag for ice but hates the ice. Ladders are still challenging but not as much. Doing better overall: does not awake from pain and able to play ping pong without pain. PT-OP-J Posture/Palpation/Skin Start: 02/09/22 19:41 Freq: Status: Active Protocol: Document 02/13/22 09:50 LRN (Rec: 02/13/22 11:12 LRN [id number]) Posture Evaluation Position Standing Head/C-Spine Posture Forward Head L-Spine Posture Shifted Left Shoulder Posture (R) Elevated Pelvis Posture (R) Iliac Crest Superior Hip Posture (L) Externally Rotated,(R) Externally Rotated Knee Posture (L) Ext. Tibial Torsion,(R) Ext. Tibial Torsion Ankle/Foot Posture (L) Pronated,(R) Calcaneal Inversion Foot Arch (L) Low Arch,(R) Low Arch Comments Posture Comments R handed Palpation Assessment Location Lumbar Palpation Location L/S interspinous and Spinous processes PA mob Palpation Findings Tenderness Palpation Details L rotated Sacrum Palpation Location Sacrum Palpation Details R rotated PT-OP-K Range of Motion Start: 02/09/22 19:41 Freq: Status: Active Protocol: Document 02/13/22 09:50 LRN (Rec: 02/13/22 11:12 LRN [id number]) Lumbar Spine Range of Motion Lumbar Spine Active Degrees Testing Position Standing Flexion 50 Extension 20 Rotation Left 20 Rotation Right 20 Lateral Flexion Left 12 Lateral Flexion Right 5 Comments FB 50/30 BB 20/10 Hip Goniometric Range of Motion Hip Right Passive Testing Position Supine Straight Leg Raise 70 Internal Rotation 20 External Rotation 20 Left Passive Testing Position Supine Straight Leg Raise 67 Internal Rotation 20 External Rotation 30 Knee Goniometric Range of Motion Knee Right Knee ROM WFL Yes Patient Position Supine Flexion Active (degrees) 120 Left Knee ROM WFL Yes Patient Position Supine Flexion Active (degrees) 120 PT-OP-L Special Tests Start: 02/09/22 19:41 Freq: Status: Active Protocol: Document 02/13/22 09:50 LRN (Rec: 02/13/22 11:12 LRN [id number]) Special Tests Lumbar Spine Special Tests Straight Leg Raise Test Results 70 R, 67 L Vertical Spine Loading Test Results Negative Standing Flexion Test Results Positive Comments Reproduced Tightness in lower legs bilaterally PT-OP-M Strength Start: 02/09/22 19:41 Freq: Status: Active Protocol: Document 02/13/22 09:50 LRN (Rec: 02/13/22 11:12 LRN [id number]) Trunk Strength Trunk Manual Muscle Testing Core Stabilization Pt is not able to maintain core stability with MMT of LE' s. Hip Strength Hip Manual Muscle Testing Right Flexion (L2) 5 Normal Extension (S1) 5 Normal Abduction 5 Normal Adduction 5 Normal External Rotation 5 Normal Internal Rotation 5 Normal Left Flexion (L2) 5 Normal Extension (S1) 5 Normal Abduction 5 Normal Adduction 5 Normal External Rotation 5 Normal Internal Rotation 5 Normal Knee Strength Knee Manual Muscle Testing Right Comments Generally 5/5 Left Comments Generally 5/5 Toe Strength Toe Manual Muscle Testing Right Great Toe Extension 5 Normal Left Great Toe Extension 1 Trace PT-OP-Q Treatments Start: 02/09/22 19:41 Freq: Status: Active Protocol: Document 03/22/22 08:20 NBM (Rec: 03/22/22 09:04 NBM [id number]) Cardio Equipment Recumbent Bicycle Duration (Minutes) 5 Resistance 5 Seat Position see 3 Gym Equipment Shuttle Recovery SL squat Details good, nely Resistance 75 # Shuttle Recovery Platform Stable Reps/Time 2x10 ea DL squat Details good form and pacing Resistance 125# Shuttle Recovery Platform Stable Reps/Time 2 x 20 Shuttle Balance Blue>red clip Details Red: WBOS, NBOS a/p, m/l Reps/Duration f/b/s Comments 1. WBOS: wt shift, rocking, HTs, EC 2. NBOS: wt shift, rocking, HTs (no UE) 3. stagger: wt shift, rocking, HTs (no UE) *cued glut/core facilitation decrease unsteadiness - EC and m/l most challenging w/ NBOS and staggered Therapeutic Exercises Standing Exercises gastroc, soleus stretch Side right Reps/Minutes 45 each x2 Comments Calf stretch at wall - cue for heel out. Neuro Re-Education Treatment Balance Activities Corner balance Details added to HEP Surface firm Equipment w/ chair Comments WBOS weightshifting a/p & m/l to limits of SCOTT, Romberg, Stride and Tandem EO/EC, horizontal head turns Self-Care/Home Management Treatment Education Patient Education Home Exercise Program Other Education Corner balance w/ chair added to HEP: WBOS weightshifting a/ p & m/l, Romberg, Stride and Tandem - HO given. Discussed ice and calf stretching as pain management options. PT-OP-R Modalities Start: 02/09/22 19:41 Freq: Status: Active Protocol: Document 03/06/22 08:17 LRN (Rec: 03/06/22 09:07 LRN [id number]) Electric Stimulation Electric Stimulation [L/S] Body Location L/S, pads upper gluts & L2 Intensity 14 Target/Sweep Sweep Patient Position Prone Combined With Heat/Cold Hot Pack Comments HP to back PT-OP-T Assessment and Plan Start: 02/09/22 19:41 Freq: Status: Active Protocol: Document 03/22/22 08:20 NBM (Rec: 03/22/22 09:04 NBM [id number]) Physical Therapy Assessment Goals Three Impairment Decreased tolerance to activities due to onset of R lower leg pain. Short Term Goal (STG) Pt will be able to walk for exercise daily 2-3 miles regardless of prior activities . 02/24/22: GOAL MET: no pain 3 miles with no pain this week. STG Duration 03/27/22 GOAL MET Cosmetic Assembler Goal (LTG) Improve functional strength with pt able to carry laundry baskets without onset of pain. 02/24/22: Progressing: pt states pain not as bad (unable give pain scale rating) carrying laundry basket/carton improved less pain into R leg by 25%. 03/02/22: GOAL MET: no pain anymore. LTG Duration 04/24/22 GOAL MET 03/02/22 Two Impairment R lower leg pain rated 0-4/10. Short Term Goal (STG) Pt will be able to sleep through the night without R lower leg pain STG Duration 03/15/22 (02/21/22: MET GOAL) Cosmetic Assembler Goal (LTG) Pt will be able to take first steps in the morning with tolerable or no R lower leg pain LTG Duration 04/24/22 (02/21/22: MET GOAL) One Impairment Lacks apppropriate self care HEP. Senior Living Goal (LTG) Independent with a self care HEP. (02/21/22: HEP: SPIKE ex; previous session ex's: standing trunk ext, Sciatic & peroneal n glide, gastoc/ soleus stretch) 02/24/22: scanned in prior HEP HOs brought today. added quad UE/LEext, TB shld ext and paloff press (rotational pressout). 03/02/22: added calf con/ eccentric raises off step, reviewed rolling pin R calf. LTG Duration 05/14/22 (03/02/22: Progressing) Assessment Summary Assessment Pt requires cues for glute activation and increased weightbearing into RLE w/ medio-lateral balance on shuttle balance - eyes closed most difficult. Corner balance w/ chair on firm surface pt most challenged w/ EC, stride or tandem R leg back >L leg back. Corner balance w/ chair added to HEP: WBOS weightshifting a/p & m/l, Romberg, Stride and Tandem - HO given. Pt requires cues for neutral foot position w/ calf stretch. Pt encouraged to try ice and stretching as needed for pain management of RLE. Physical Therapy Plan Next Visit Focus/Plan Next Note Type Treatment Note Next Visit Plan Recheck core september. POC: Continue Damon ext and core stab. to eliminate pain in R knee with stair ambulation. Check DTR's, if needed: STM of R lower leg. manual lumbar traction if having RLE pain; check if needed sacral/?lumbar mobs to correct L rotation. With start of walking and strengthening use modalities at end for ms relaxation and pain management (MH/IFES to low back to end).
--- NOTE | 2022-03-28 17:43 | PT.OTN ---
Current Diagnoses Pain in right leg (03/28/22) Physical Therapy Treatment Note PT-OP-A Visit Information Start: 02/09/22 19:41 Freq: Status: Active Protocol: Document 03/28/22 09:07 LRN (Rec: 03/28/22 09:55 LRN [id number]) Out-Patient Physical Therapy Visit Information Visit Information Visit Type Progress Note Visit Start Time 09:07 Visit Stop Time 10:07 Total Visit Minutes 60 Visit Number 10 Number of ROLL SCALE MAN Visits 3 Evaluation Information Evaluation Date 02/13/22 Precautions Precautions Controlled HBP, Arthritis in fingers. PT-OP-B Current Condition Start: 02/09/22 19:41 Freq: Status: Active Protocol: Document 02/13/22 09:50 LRN (Rec: 02/13/22 11:12 LRN [id number]) Current Condition History of Current Condition Onset Date Jul 2021 Current Complaints R anterior, lateral and posteromedial lower leg, sometimes into big toe History of Current Condition R lower leg pain that sometimes radiates into the lateral ankle and big toe. Pain depends on the time of day and activity he is doing. Denies accident or injury. Noticed it playing [employer] 2x/week, (summer time 1x/week )during the school year after the first 2-3 games. Walks daily (3 miles) and as long as he doesn't do anything before the walk he can finish, otherwise he can only tolerate 1-2 miles before pain. Sometimes the pain goes away if he does not other activity after walking. Prior Treatments and Tests Arthritis salve, Alleve sometimes helps decrease pain. Treatment Goals Patient/Caregiver Goals Pt goal is to sleep through the night without pain, to be able to walk for exercise daily 2-3 miles regardless of prior activities, to be able carry the laundry baskets without onset of pain. Prior Functional Status Baseline Function- ADL's Independent Baseline Function- Mobility Independent Baseline Function- Gait 2-3 miles walking daily Baseline Function- Recreation/Hobbies Ping pong 2x/week during school year and 1x/week during summer. Current Functional Impairments (Reported) Functional Limitations- ADL's Standing, sometimes vaccuming, sleep interruption if on L side with R leg hanging over, first steps in morning are painful. Carrying laudry basket causes L lower leg pain. Functional Limitations- Mobility/Gait Walking sidewalks in town 2-3 miles if having done no other previous activities. Functional Limitations- Recreation/ 1-2 ping pong games Hobbies Personal Factors Other Personal Factors That May Effect None. 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 Had a little bother in R lower leg for a little bit. May be because he was working down on knees. Pt would like to continue 1-2 more weeks to make sure his problem has resolved. He has stiffness in his lower leg in the morning, but no pain. PT-OP-J Posture/Palpation/Skin Start: 02/09/22 19:41 Freq: Status: Active Protocol: Document 02/13/22 09:50 LRN (Rec: 02/13/22 11:12 LRN [id number]) Posture Evaluation Position Standing Head/C-Spine Posture Forward Head L-Spine Posture Shifted Left Shoulder Posture (R) Elevated Pelvis Posture (R) Iliac Crest Superior Hip Posture (L) Externally Rotated,(R) Externally Rotated Knee Posture (L) Ext. Tibial Torsion,(R) Ext. Tibial Torsion Ankle/Foot Posture (L) Pronated,(R) Calcaneal Inversion Foot Arch (L) Low Arch,(R) Low Arch Comments Posture Comments R handed Palpation Assessment Location Lumbar Palpation Location L/S interspinous and Spinous processes PA mob Palpation Findings Tenderness Palpation Details L rotated Sacrum Palpation Location Sacrum Palpation Details R rotated PT-OP-K Range of Motion Start: 02/09/22 19:41 Freq: Status: Active Protocol: Document 02/13/22 09:50 LRN (Rec: 02/13/22 11:12 LRN [id number]) Lumbar Spine Range of Motion Lumbar Spine Active Degrees Testing Position Standing Flexion 50 Extension 20 Rotation Left 20 Rotation Right 20 Lateral Flexion Left 12 Lateral Flexion Right 5 Comments FB 50/30 BB 20/10 Hip Goniometric Range of Motion Hip Right Passive Testing Position Supine Straight Leg Raise 70 Internal Rotation 20 External Rotation 20 Left Passive Testing Position Supine Straight Leg Raise 67 Internal Rotation 20 External Rotation 30 Knee Goniometric Range of Motion Knee Right Knee ROM WFL Yes Patient Position Supine Flexion Active (degrees) 120 Left Knee ROM WFL Yes Patient Position Supine Flexion Active (degrees) 120 PT-OP-L Special Tests Start: 02/09/22 19:41 Freq: Status: Active Protocol: Document 02/13/22 09:50 LRN (Rec: 02/13/22 11:12 LRN [id number]) Special Tests Lumbar Spine Special Tests Straight Leg Raise Test Results 70 R, 67 L Vertical Spine Loading Test Results Negative Standing Flexion Test Results Positive Comments Reproduced Tightness in lower legs bilaterally PT-OP-M Strength Start: 02/09/22 19:41 Freq: Status: Active Protocol: Document 02/13/22 09:50 LRN (Rec: 02/13/22 11:12 LRN [id number]) Trunk Strength Trunk Manual Muscle Testing Core Stabilization Pt is not able to maintain core stability with MMT of LE' s. Hip Strength Hip Manual Muscle Testing Right Flexion (L2) 5 Normal Extension (S1) 5 Normal Abduction 5 Normal Adduction 5 Normal External Rotation 5 Normal Internal Rotation 5 Normal Left Flexion (L2) 5 Normal Extension (S1) 5 Normal Abduction 5 Normal Adduction 5 Normal External Rotation 5 Normal Internal Rotation 5 Normal Knee Strength Knee Manual Muscle Testing Right Comments Generally 5/5 Left Comments Generally 5/5 Toe Strength Toe Manual Muscle Testing Right Great Toe Extension 5 Normal Left Great Toe Extension 1 Trace PT-OP-Q Treatments Start: 02/09/22 19:41 Freq: Status: Active Protocol: Document 03/28/22 09:07 LRN (Rec: 03/28/22 09:55 LRN [id number]) Gym Equipment Shuttle Recovery SL squat Details good, nely Resistance 75 # Shuttle Recovery Platform Stable Reps/Time 10x 3 each DL squat Details good form and pacing Resistance 125# Shuttle Recovery Platform Stable Reps/Time 3 x 20 Therapeutic Exercises Prone Exercises on elbows Prone Exercise Name SPIKE/HEP Reps/Minutes 15x 2 Comments cued painfree, TA fac and tolerant ROM range Sitting Exercises Shoulder rolls Sitting Exercise Name Shoulder rolls Side bilateral Reps/Minutes 5x each Head rotation stretch Sitting Exercise Name Head rotation stretch - slow & controlled Side bilateral Reps/Minutes 2x each Comments Cuing for slow controlled mvmt & w/o pain Neck SB stretch Sitting Exercise Name Neck SB stretch Side bilateral Reps/Minutes 10'X 2 Comments Cuing for max tolerated stretch w/o pain Neck rot stretch Sitting Exercise Name Neck rot stretch Side bilateral Reps/Minutes 10 x 2 each Comments Cuing for max tolerated stretch w/o pain Standing Exercises Trunk rot Standing Exercise Name Arms overhead and rotation stretch Side bilateral Reps/Minutes 10x Toe touch>back arch Standing Exercise Name Toe touch<>Back arch Reps/Minutes 10x Trunk SB Standing Exercise Name Trunk SB stretch Side bilateral Reps/Minutes 2-5 hold x 10 back extension Standing Exercise Name Standing trunk ext (HEP) Equipment Used hands on hip, forward pelvic glide Reps/Minutes 10x, 1-2 sec hold Comments Hands on sides, cued for 1-2 sec stretch. gastroc, soleus stretch Side bilateral Reps/Minutes 45 each x2 Comments Calf stretch at wall - cue for heel out. Manual Therapy Treatment Soft Tissue Mobilization L leg, hip Body Location L lower leg Mobilization Type Strumming Intensity/Depth Moderate Body Position Supine Manual Techniques MWM Type PA at level of R L5 transverse process with ascending of stairs. Body Position Standing Reps/Duration 13' Self-Care/Home Management Treatment Education Patient Education Fall Risk Other Education Pt educated and reviewed HEP: General stretches of neck rot /SB & full revolution, arm circles, shoulder rolls, ankle ROM, and standing trunk SB and rotation. PT-OP-R Modalities Start: 02/09/22 19:41 Freq: Status: Active Protocol: Document 03/06/22 08:17 LRN (Rec: 03/06/22 09:07 LRN [id number]) Electric Stimulation Electric Stimulation [L/S] Body Location L/S, pads upper gluts & L2 Intensity 14 Target/Sweep Sweep Patient Position Prone Combined With Heat/Cold Hot Pack Comments HP to back PT-OP-T Assessment and Plan Start: 02/09/22 19:41 Freq: Status: Active Protocol: Document 03/28/22 09:07 LRN (Rec: 03/28/22 09:55 LRN [id number]) Physical Therapy Assessment Rehab Potential Rehabilitation Potential Excellent Evaluation Complexity Number of Personal Factors/Comorbidities 0 Number of Body Systems Impaired 4 or More Clinical Presentation at Evaluation Evolving Impairments Impairments Activity Tolerance,Functional Mobility,Gait,Pain,ROM, Sensation,Soft Tissue Mobility Goals Three Impairment Decreased tolerance to activities due to onset of R lower leg pain. Short Term Goal (STG) Pt will be able to walk for exercise daily 2-3 miles regardless of prior activities . 02/24/22: GOAL MET: no pain 3 miles with no pain this week. STG Duration 03/27/22 GOAL MET [employer] Goal (LTG) Improve functional strength with pt able to carry laundry baskets without onset of pain. 02/24/22: Progressing: pt states pain not as bad (unable give pain scale rating) carrying laundry basket/carton improved less pain into R leg by 25%. 03/02/22: GOAL MET: no pain anymore. LTG Duration 04/24/22 GOAL MET 03/02/22 Two Impairment R lower leg pain rated 0-4/10. Short Term Goal (STG) Pt will be able to sleep through the night without R lower leg pain STG Duration 03/15/22 (02/21/22: MET GOAL) [facility] Goal (LTG) Pt will be able to take first steps in the morning with tolerable or no R lower leg pain LTG Duration 04/24/22 (02/21/22: MET GOAL) One Impairment Lacks apppropriate self care HEP. [facility] Goal (LTG) Independent with a self care HEP. (02/21/22: HEP: SPIKE ex; previous session ex's: standing trunk ext, Sciatic & peroneal n glide, gastoc/ soleus stretch) 02/24/22: scanned in prior HEP HOs brought today. added quad UE/LEext, TB shld ext and paloff press (rotational pressout). 03/02/22: added calf con/ eccentric raises off step, reviewed rolling pin R calf. LTG Duration 05/14/22 (03/02/22: Progressing) Assessment Summary Assessment Increase L lower lateral leg pain with stairs after repetitive R standing trunk rot and R LTR stretch; therefore stretch for L5 R rot was not helpful to minimize pain. Pt had + response to IFES with minimal pain felt in R lateral lower leg after STM & IFES. Overall the pt has had a decrease in pain in the L lower leg and has had one weekend of being able to resume functional activities such as stair ambulation and climbing ladders without pain, but only stiffness in the R lower leg. The pt will benefit from continued physical therapy to promote stability of his core/pelvis and normalize sensation in the R lower leg; therefore I recommend continuation of therapy to stabilize the pt's condition to return him to prior level of function and progress him towards return to recreational ping pong play.. Physical Therapy Plan Frequency and Duration Frequency of Treatment 2x/Week Plan of Care Start Date 02/13/22 Plan of Care End Date 04/24/22 Therapeutic Interventions Therapeutic Interventions Gait Training,Home Exercise Program,Joint Mobilizations, Manual Therapy,Neuromuscular Re-education,Patient/Caregiver Education,Self-Care/Home Management,Soft Tissue Mobilization,Taping, Therapeutic Exercises Modalities Cold Pack/Ice Massage,Electric Stimulation,Hot Packs, Traction- Mechanical Next Visit Focus/Plan Next Note Type Treatment Note Next Visit Plan Recheck core september. Add manual lumbar traction and educate pt in self traction in supine. POC: Continue Damon ext and core stab. to eliminate pain in R lower leg with stair ambulation. Check DTR's, if needed: STM of R lower leg. manual lumbar traction if having RLE pain; check if needed sacral/?lumbar mobs to correct L4-L5, L5-S1 rotation. With start of walking and strengthening use modalities at end for ms relaxation and pain management (MH/IFES to low back to end).
--- NOTE | 2022-03-30 08:13 | PT.OTN ---
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 PT-OP-B Current Condition Start: 02/09/22 19:41 Freq: Status: Active Protocol: Document 02/13/22 09:50 LRN (Rec: 02/13/22 11:12 LRN [id number]) Current Condition History of Current Condition Onset Date Jul 2021 Current Complaints R anterior, lateral and posteromedial lower leg, sometimes into big toe History of Current Condition R lower leg pain that sometimes radiates into the lateral ankle and big toe. Pain depends on the time of day and activity he is doing. Denies accident or injury. Noticed it playing [employer] 2x/week, (summer time 1x/week )during the school year after the first 2-3 games. Walks daily (3 miles) and as long as he doesn't do anything before the walk he can finish, otherwise he can only tolerate 1-2 miles before pain. Sometimes the pain goes away if he does not other activity after walking. Prior Treatments and Tests Arthritis salve, Alleve sometimes helps decrease pain. Treatment Goals Patient/Caregiver Goals Pt goal is to sleep through the night without pain, to be able to walk for exercise daily 2-3 miles regardless of prior activities, to be able carry the laundry baskets without onset of pain. Prior Functional Status Baseline Function- ADL's Independent Baseline Function- Mobility Independent Baseline Function- Gait 2-3 miles walking daily Baseline Function- Recreation/Hobbies Ping pong 2x/week during school year and 1x/week during summer. Current Functional Impairments (Reported) Functional Limitations- ADL's Standing, sometimes vaccuming, sleep interruption if on L side with R leg hanging over, first steps in morning are painful. Carrying laudry basket causes L lower leg pain. Functional Limitations- Mobility/Gait Walking sidewalks in town 2-3 miles if having done no other previous activities. Functional Limitations- Recreation/ 1-2 [employer] games Hobbies Personal Factors Other Personal Factors That May Effect None. 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 He states is walking more, climbing ladders , uneven ground at camp and not having any lower leg pain. PT-OP-J Posture/Palpation/Skin Start: 02/09/22 19:41 Freq: Status: Active Protocol: Document 02/13/22 09:50 LRN (Rec: 02/13/22 11:12 LRN [id number]) Posture Evaluation Position Standing Head/C-Spine Posture Forward Head L-Spine Posture Shifted Left Shoulder Posture (R) Elevated Pelvis Posture (R) Iliac Crest Superior Hip Posture (L) Externally Rotated,(R) Externally Rotated Knee Posture (L) Ext. Tibial Torsion,(R) Ext. Tibial Torsion Ankle/Foot Posture (L) Pronated,(R) Calcaneal Inversion Foot Arch (L) Low Arch,(R) Low Arch Comments Posture Comments R handed Palpation Assessment Location Lumbar Palpation Location L/S interspinous and Spinous processes PA mob Palpation Findings Tenderness Palpation Details L rotated Sacrum Palpation Location Sacrum Palpation Details R rotated PT-OP-K Range of Motion Start: 02/09/22 19:41 Freq: Status: Active Protocol: Document 02/13/22 09:50 LRN (Rec: 02/13/22 11:12 LRN [id number]) Lumbar Spine Range of Motion Lumbar Spine Active Degrees Testing Position Standing Flexion 50 Extension 20 Rotation Left 20 Rotation Right 20 Lateral Flexion Left 12 Lateral Flexion Right 5 Comments FB 50/30 BB 20/10 Hip Goniometric Range of Motion Hip Right Passive Testing Position Supine Straight Leg Raise 70 Internal Rotation 20 External Rotation 20 Left Passive Testing Position Supine Straight Leg Raise 67 Internal Rotation 20 External Rotation 30 Knee Goniometric Range of Motion Knee Right Knee ROM WFL Yes Patient Position Supine Flexion Active (degrees) 120 Left Knee ROM WFL Yes Patient Position Supine Flexion Active (degrees) 120 PT-OP-L Special Tests Start: 02/09/22 19:41 Freq: Status: Active Protocol: Document 02/13/22 09:50 LRN (Rec: 02/13/22 11:12 LRN [id number]) Special Tests Lumbar Spine Special Tests Straight Leg Raise Test Results 70 R, 67 L Vertical Spine Loading Test Results Negative Standing Flexion Test Results Positive Comments Reproduced Tightness in lower legs bilaterally PT-OP-M Strength Start: 02/09/22 19:41 Freq: Status: Active Protocol: Document 02/13/22 09:50 LRN (Rec: 02/13/22 11:12 LRN [id number]) Trunk Strength Trunk Manual Muscle Testing Core Stabilization Pt is not able to maintain core stability with MMT of LE' s. Hip Strength Hip Manual Muscle Testing Right Flexion (L2) 5 Normal Extension (S1) 5 Normal Abduction 5 Normal Adduction 5 Normal External Rotation 5 Normal Internal Rotation 5 Normal Left Flexion (L2) 5 Normal Extension (S1) 5 Normal Abduction 5 Normal Adduction 5 Normal External Rotation 5 Normal Internal Rotation 5 Normal Knee Strength Knee Manual Muscle Testing Right Comments Generally 5/5 Left Comments Generally 5/5 Toe Strength Toe Manual Muscle Testing Right Great Toe Extension 5 Normal Left Great Toe Extension 1 Trace PT-OP-Q Treatments Start: 02/09/22 19:41 Freq: Status: Active Protocol: Document 03/30/22 07:31 SP (Rec: 03/30/22 08:17 SP [id number]) Cardio Equipment Bicycle (Upright) Duration (Minutes) 5 Resistance 6 Seat Position 5 Other warm up- good response Gym Equipment Shuttle Recovery SL squat Details good alternate Resistance 75 # Shuttle Recovery Platform Stable Reps/Time 10x 3 each LE DL squat Details good form and pacing Resistance 125# Shuttle Recovery Platform Stable Reps/Time 3 x 20 Shuttle Balance Blue>red clip Details Red: WBOS a/p, NBOS a/p, m/l Reps/Duration f/b/s Comments 1. WBOS: wt shift, rocking, HTs 2. NBOS: wt shift, rocking, HTs 3. stagger: wt shift, rocking, HTs (no UE) *cued slow HTs and pacing rocking with good performance control, painfree Therapeutic Exercises Supine Exercises TA sequencial september Supine Exercise Name reviewed HEP: legs in/out extension Side bilateral Reps/Minutes 2x5 lead each LE Comments cue x1 for form, no tingling in RLE Sitting Exercises STS Sitting Exercise Name balance challenge with functional mobility if wants extra Equipment Used firm ground, blue foam, locker chair Reps/Minutes x10 reps each surface Comments good form/ pacing, painfree, Shoulder rolls Sitting Exercise Name Shoulder, neck rolls, arm circles Side bilateral Reps/Minutes 5x each Comments good form no pain Head rotation stretch Sitting Exercise Name Head rotation stretch - slow & controlled Side bilateral Reps/Minutes x10 reps hold 2 sec Comments cued trunk/shld still, slow pacing Neck SB stretch Sitting Exercise Name Neck SB stretch Side bilateral Equipment Used front mirror for self awareness of alignment Reps/Minutes 10'X 2 Comments CUed front kumar Neck rot stretch Sitting Exercise Name Neck rot stretch Side bilateral Reps/Minutes 10 x 2 each Comments Cuing for max tolerated stretch w/o pain Standing Exercises dynamic quick step outs Standing Exercise Name added to HEP: assimulate ping pong mobility- not want HO Side bilateral Resistance TB #2 (clasped in hands front navel) Equipment Used lateral 3 angles side step and back together Reps/Minutes 2 x5 reps each direction Comments cued soft knee lateral wt step feet out/together and back Trunk rot Standing Exercise Name Arms overhead and rotation stretch Side bilateral Reps/Minutes 10x Toe touch>back arch Standing Exercise Name Toe touch<>Back arch Reps/Minutes 10x Trunk SB Standing Exercise Name Trunk SB stretch Side bilateral Reps/Minutes 2-5 hold x 10 calf raises Standing Exercise Name warm up HEP review: 3 positions Side bilateral Equipment Used rail contact Reps/Minutes x10 each position Comments painfree- good form back extension Standing Exercise Name Standing trunk ext (HEP) Equipment Used hands on hip, forward pelvic glide Reps/Minutes 10x, 1-2 sec hold Comments Hands on sides, cued for 1-2 sec stretch. Neuro Re-Education Treatment Balance Activities Corner balance Details reviewed HEP Surface firm Equipment w/ chair, corner at back Comments 1. NBOS: HTs, EC 30sec stable 2. semi tandem: HTs, EC 30s stable 3. Tandem: LLE forward HTs, EC 30s stable, RLE forward HTs, EC 30s sway but self recovery 4. SLS RLE 12 s, LLE 8 sec Self-Care/Home Management Treatment Education Patient Education Body Mechanics,Home Exercise Program Other Education resisted dynamic angles side stepping assimulate pingpong mobility prep game/ functional mobility strengthening. PT-OP-R Modalities Start: 02/09/22 19:41 Freq: Status: Active Protocol: Document 03/06/22 08:17 LRN (Rec: 03/06/22 09:07 LRN [id number]) Electric Stimulation Electric Stimulation [L/S] Body Location L/S, pads upper gluts & L2 Intensity 14 Target/Sweep Sweep Patient Position Prone Combined With Heat/Cold Hot Pack Comments HP to back PT-OP-T Assessment and Plan Start: 02/09/22 19:41 Freq: Status: Active Protocol: Document 03/30/22 07:31 SP (Rec: 03/30/22 08:17 SP [id number]) Physical Therapy Assessment Goals Three Impairment Decreased tolerance to activities due to onset of R lower leg pain. Short Term Goal (STG) Pt will be able to walk for exercise daily 2-3 miles regardless of prior activities . 02/24/22: GOAL MET: no pain 3 miles with no pain this week. STG Duration 03/27/22 GOAL MET Assisted Goal (LTG) Improve functional strength with pt able to carry laundry baskets without onset of pain. 02/24/22: Progressing: pt states pain not as bad (unable give pain scale rating) carrying laundry basket/carton improved less pain into R leg by 25%. 03/02/22: GOAL MET: no pain anymore. LTG Duration 04/24/22 GOAL MET 03/02/22 Two Impairment R lower leg pain rated 0-4/10. 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 (02/21/22: HEP: SPIKE ex; previous session ex's: standing trunk ext, Sciatic & peroneal n glide, gastoc/ soleus stretch) 02/24/22: scanned in prior HEP HOs brought today. added quad UE/LEext, TB shld ext and paloff press (rotational pressout). 03/02/22: added calf con/ eccentric raises off step, reviewed rolling pin R calf. 03/30/22: see 03/28 for added ROM/ stretching from PT, today added dynamic quick resisted step outs for assimulation pingpong LE ankle/Lower leg/ trunk stability/mobility. LTG Duration 05/14/22 (03/30/22: Progressing) Assessment Summary Assessment Pt good performance of HEP stretching/ROM review, used mirror for self awareness of for/pacing hold when stretching and use opp UE for stretch. corner balance improved I balance challenges for progression. Good response to added resisted dyamic angle side stepping for pingpong assimulation painfree and good activity states to prep game. Physical Therapy Plan Frequency and Duration Frequency of Treatment 2x/Week Plan of Care Start Date 02/13/22 Plan of Care End Date 04/24/22 Therapeutic Interventions Therapeutic Interventions Gait Training,Home Exercise Program,Joint Mobilizations, Manual Therapy,Neuromuscular Re-education,Patient/Caregiver Education,Self-Care/Home Management,Soft Tissue Mobilization,Taping, Therapeutic Exercises Modalities Cold Pack/Ice Massage,Electric Stimulation,Hot Packs, Traction- Mechanical Next Visit Focus/Plan Next Note Type Treatment Note Next Visit Plan Recheck resisted dynamic angles side stepping. core september. Add manual lumbar traction and educate pt in self traction in supine. POC: Continue Damon ext and core stab. to eliminate pain in R lower leg with stair ambulation. Check DTR's, if needed: STM of R lower leg. manual lumbar traction if having RLE pain; check if needed sacral/?lumbar mobs to correct L4-L5, L5-S1 rotation. With start of walking and strengthening use modalities at end for ms relaxation and pain management (MH/IFES to low back to end).
--- NOTE | 2022-04-04 08:13 | PT.OTN ---
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 PT-OP-B Current Condition Start: 02/09/22 19:41 Freq: Status: Active Protocol: Document 02/13/22 09:50 LRN (Rec: 02/13/22 11:12 LRN [id number]) Current Condition History of Current Condition Onset Date Jul 2021 Current Complaints R anterior, lateral and posteromedial lower leg, sometimes into big toe History of Current Condition R lower leg pain that sometimes radiates into the lateral ankle and big toe. Pain depends on the time of day and activity he is doing. Denies accident or injury. Noticed it playing [employer] 2x/week, (summer time 1x/week )during the school year after the first 2-3 games. Walks daily (3 miles) and as long as he doesn't do anything before the walk he can finish, otherwise he can only tolerate 1-2 miles before pain. Sometimes the pain goes away if he does not other activity after walking. Prior Treatments and Tests Arthritis salve, Alleve sometimes helps decrease pain. Treatment Goals Patient/Caregiver Goals Pt goal is to sleep through the night without pain, to be able to walk for exercise daily 2-3 miles regardless of prior activities, to be able carry the laundry baskets without onset of pain. Prior Functional Status Baseline Function- ADL's Independent Baseline Function- Mobility Independent Baseline Function- Gait 2-3 miles walking daily Baseline Function- Recreation/Hobbies Ping pong 2x/week during school year and 1x/week during summer. Current Functional Impairments (Reported) Functional Limitations- ADL's Standing, sometimes vaccuming, sleep interruption if on L side with R leg hanging over, first steps in morning are painful. Carrying laudry basket causes L lower leg pain. Functional Limitations- Mobility/Gait Walking sidewalks in town 2-3 miles if having done no other previous activities. Functional Limitations- Recreation/ 1-2 [employer] games Hobbies Personal Factors Other Personal Factors That May Effect None. Therapy/Recovery PT-OP-C Subjective Start: 02/09/22 19:41 Freq: Status: Active Protocol: Document 04/04/22 07:34 SP (Rec: 04/04/22 08:16 SP [id number]) OP-PT Subjective Patient Comments Patient Comments Pt reported the warm up exercises with head and trunk thought helped with flexibility while playing [employer]. He stated last night was stooping over rearranging decorations prep for holidays and later was having little more tight muscle lateral superior gastroc. [place], pr[place] bushes and no problems. He states the tingling is gone. PT-OP-J Posture/Palpation/Skin Start: 02/09/22 19:41 Freq: Status: Active Protocol: Document 02/13/22 09:50 LRN (Rec: 02/13/22 11:12 LRN [id number]) Posture Evaluation Position Standing Head/C-Spine Posture Forward Head L-Spine Posture Shifted Left Shoulder Posture (R) Elevated Pelvis Posture (R) Iliac Crest Superior Hip Posture (L) Externally Rotated,(R) Externally Rotated Knee Posture (L) Ext. Tibial Torsion,(R) Ext. Tibial Torsion Ankle/Foot Posture (L) Pronated,(R) Calcaneal Inversion Foot Arch (L) Low Arch,(R) Low Arch Comments Posture Comments R handed Palpation Assessment Location Lumbar Palpation Location L/S interspinous and Spinous processes PA mob Palpation Findings Tenderness Palpation Details L rotated Sacrum Palpation Location Sacrum Palpation Details R rotated PT-OP-K Range of Motion Start: 02/09/22 19:41 Freq: Status: Active Protocol: Document 02/13/22 09:50 LRN (Rec: 02/13/22 11:12 LRN [id number]) Lumbar Spine Range of Motion Lumbar Spine Active Degrees Testing Position Standing Flexion 50 Extension 20 Rotation Left 20 Rotation Right 20 Lateral Flexion Left 12 Lateral Flexion Right 5 Comments FB 50/30 BB 20/10 Hip Goniometric Range of Motion Hip Right Passive Testing Position Supine Straight Leg Raise 70 Internal Rotation 20 External Rotation 20 Left Passive Testing Position Supine Straight Leg Raise 67 Internal Rotation 20 External Rotation 30 Knee Goniometric Range of Motion Knee Right Knee ROM WFL Yes Patient Position Supine Flexion Active (degrees) 120 Left Knee ROM WFL Yes Patient Position Supine Flexion Active (degrees) 120 PT-OP-L Special Tests Start: 02/09/22 19:41 Freq: Status: Active Protocol: Document 02/13/22 09:50 LRN (Rec: 02/13/22 11:12 LRN [id number]) Special Tests Lumbar Spine Special Tests Straight Leg Raise Test Results 70 R, 67 L Vertical Spine Loading Test Results Negative Standing Flexion Test Results Positive Comments Reproduced Tightness in lower legs bilaterally PT-OP-M Strength Start: 02/09/22 19:41 Freq: Status: Active Protocol: Document 02/13/22 09:50 LRN (Rec: 02/13/22 11:12 LRN [id number]) Trunk Strength Trunk Manual Muscle Testing Core Stabilization Pt is not able to maintain core stability with MMT of LE' s. Hip Strength Hip Manual Muscle Testing Right Flexion (L2) 5 Normal Extension (S1) 5 Normal Abduction 5 Normal Adduction 5 Normal External Rotation 5 Normal Internal Rotation 5 Normal Left Flexion (L2) 5 Normal Extension (S1) 5 Normal Abduction 5 Normal Adduction 5 Normal External Rotation 5 Normal Internal Rotation 5 Normal Knee Strength Knee Manual Muscle Testing Right Comments Generally 5/5 Left Comments Generally 5/5 Toe Strength Toe Manual Muscle Testing Right Great Toe Extension 5 Normal Left Great Toe Extension 1 Trace PT-OP-Q Treatments Start: 02/09/22 19:41 Freq: Status: Active Protocol: Document 04/04/22 07:34 SP (Rec: 04/04/22 08:16 SP [id number]) Cardio Equipment Bicycle (Upright) Duration (Minutes) 7 Resistance 7 Seat Position 5 Other warm up- good response Therapeutic Exercises Sitting Exercises Shoulder rolls Sitting Exercise Name Shoulder, neck rolls, arm circles Side bilateral Reps/Minutes 5x each Comments good form no pain Head rotation stretch Sitting Exercise Name Head rotation stretch - slow & controlled Side bilateral Reps/Minutes x10 reps hold 2 sec Comments cued trunk/shld still, slow pacing Neck SB stretch Sitting Exercise Name Neck SB stretch Side bilateral Equipment Used front mirror for self awareness of alignment Reps/Minutes 10'X 2 Comments good form Neck rot stretch Sitting Exercise Name Neck rot stretch Side bilateral Reps/Minutes 10 x 2 each Comments good form self STMs Sitting Exercise Name 1.reviewed calf rolling and added MWM w/ tennis ball long sitting floor Side right Equipment Used 2. racquetball ES, piriformis Reps/Minutes 1 min (rocking/ rolling), ankle ROM Comments good feedback decreased calf tension Standing Exercises dynamic quick step outs Standing Exercise Name assimulate ping pong mobility- not want HO Side bilateral Resistance TB #2 (clasped in hands front navel) vs sport cord red Equipment Used lateral 3 angles side step and back together Reps/Minutes 4 x5 reps each direction Comments cued soft knee lateral wt step feet out/together and back Trunk rot Standing Exercise Name Arms overhead and rotation stretch Side bilateral Reps/Minutes 10x Toe touch>back arch Standing Exercise Name Toe touch<>Back arch Reps/Minutes 10x calf raises Standing Exercise Name warm up HEP review: 3 positions Side bilateral Equipment Used rail contact Reps/Minutes x10 each position Comments painfree- good form back extension Standing Exercise Name Standing trunk ext (HEP) Equipment Used hands on hip, forward pelvic glide Reps/Minutes 10x, 1-2 sec hold Comments Hands on sides, cued for 1-2 sec stretch. gastroc, soleus stretch Side bilateral Reps/Minutes 45 each x2 Comments Calf stretch at wall - cue for heel out. Self-Care/Home Management Treatment Education Patient Education Body Mechanics,Home Exercise Program Other Education -reviewed self care massage lateral R calf -reviewed body mechanics standing, low squat bringing box to trunk then lift legs, straight back, taking items out box lessen wt then move box, bring box more elevated and move items out at height better for back. Good verbage limits back -reviewed mechanics with pingpong and states stretches when needed during game. PT-OP-R Modalities Start: 02/09/22 19:41 Freq: Status: Active Protocol: Document 03/06/22 08:17 LRN (Rec: 03/06/22 09:07 LRN [id number]) Electric Stimulation Electric Stimulation [L/S] Body Location L/S, pads upper gluts & L2 Intensity 14 Target/Sweep Sweep Patient Position Prone Combined With Heat/Cold Hot Pack Comments HP to back PT-OP-T Assessment and Plan Start: 02/09/22 19:41 Freq: Status: Active Protocol: Document 04/04/22 07:34 SP (Rec: 04/04/22 08:16 SP [id number]) Physical Therapy Assessment Goals Three Impairment Decreased tolerance to activities due to onset of R lower leg pain. Short Term Goal (STG) Pt will be able to walk for exercise daily 2-3 miles regardless of prior activities . 02/24/22: GOAL MET: no pain 3 miles with no pain this week. STG Duration 03/27/22 GOAL MET Custodial Goal (LTG) Improve functional strength with pt able to carry laundry baskets without onset of pain. 02/24/22: Progressing: pt states pain not as bad (unable give pain scale rating) carrying laundry basket/carton improved less pain into R leg by 25%. 03/02/22: GOAL MET: no pain anymore. LTG Duration 04/24/22 GOAL MET 03/02/22 Two Impairment R lower leg pain rated 0-4/10. Short Term Goal (STG) Pt will be able to sleep through the night without R lower leg pain STG Duration 03/15/22 (02/21/22: MET GOAL) Bushel Worker Goal (LTG) Pt will be able to take first steps in the morning with tolerable or no R lower leg pain LTG Duration 04/24/22 (02/21/22: MET GOAL) One Impairment Lacks apppropriate self care HEP. Custodial Goal (LTG) Independent with a self care HEP. (02/21/22: HEP: SPIEK ex; previous session ex's: standing trunk ext, Sciatic & peroneal n glide, gastoc/ soleus stretch) 02/24/22: scanned in prior HEP HOs brought today. added quad UE/LEext, TB shld ext and paloff press (rotational pressout). 03/02/22: added calf con/ eccentric raises off step, reviewed rolling pin R calf. 03/30/22: see 03/28 for added ROM/ stretching from PT, today added dynamic quick resisted step outs for assimulation pingpong LE ankle/Lower leg/ trunk stability/mobility. LTG Duration 05/14/22 (03/30/22: Progressing) Assessment Summary Assessment Pt improved understanding self STMs pre/post activity, good tolerance and effective massage out lateral calf MWM over tennis ball with ankle ROM this tx. He noted R lateral calf tension during side stepping #2 TB / red sport cord but goes away with stretching. Pt states will play 1-2 more times before sees PT next tx, will see if needing to continue PT at next tx. Physical Therapy Plan Frequency and Duration Frequency of Treatment 2x/Week Plan of Care Start Date 02/13/22 Plan of Care End Date 04/24/22 Therapeutic Interventions Therapeutic Interventions Gait Training,Home Exercise Program,Joint Mobilizations, Manual Therapy,Neuromuscular Re-education,Patient/Caregiver Education,Self-Care/Home Management,Soft Tissue Mobilization,Taping, Therapeutic Exercises Modalities Cold Pack/Ice Massage,Electric Stimulation,Hot Packs, Traction- Mechanical Next Visit Focus/Plan Next Note Type Treatment Note Next Visit Plan Next tx: Add manual lumbar traction and educate pt in self traction in supine. POC: Continue Damon ext and core stab. to eliminate pain in R lower leg with stair ambulation. Check DTR's, if needed: STM of R lower leg. manual lumbar traction if having RLE pain; check if needed sacral/?lumbar mobs to correct L4-L5, L5-S1 rotation. With start of walking and strengthening use modalities at end for ms relaxation and pain management (MH/IFES to low back to end).
--- NOTE | 2022-04-10 13:24 | PT.OTN ---
Current Diagnoses Pain in right leg (04/10/22) Physical Therapy Treatment Note PT-OP-A Visit Information Start: 02/09/22 19:41 Freq: Status: Active Protocol: Document 04/10/22 08:16 LRN (Rec: 04/10/22 09:02 LRN [id number]) Out-Patient Physical Therapy Visit Information Visit Information Visit Type Treatment Note Visit Start Time 08:16 Visit Stop Time 08:56 Total Visit Minutes 40 Visit Number 13 Evaluation Information Evaluation Date 02/13/22 Precautions Precautions Controlled HBP, Arthritis in fingers. PT-OP-B Current Condition Start: 02/09/22 19:41 Freq: Status: Active Protocol: Document 02/13/22 09:50 LRN (Rec: 02/13/22 11:12 LRN [id number]) Current Condition History of Current Condition Onset Date Jul 2021 Current Complaints R anterior, lateral and posteromedial lower leg, sometimes into big toe History of Current Condition R lower leg pain that sometimes radiates into the lateral ankle and big toe. Pain depends on the time of day and activity he is doing. Denies accident or injury. Noticed it playing [employer] 2x/week, (summer time 1x/week )during the school year after the first 2-3 games. Walks daily (3 miles) and as long as he doesn't do anything before the walk he can finish, otherwise he can only tolerate 1-2 miles before pain. Sometimes the pain goes away if he does not other activity after walking. Prior Treatments and Tests Arthritis salve, Alleve sometimes helps decrease pain. Treatment Goals Patient/Caregiver Goals Pt goal is to sleep through the night without pain, to be able to walk for exercise daily 2-3 miles regardless of prior activities, to be able carry the laundry baskets without onset of pain. Prior Functional Status Baseline Function- ADL's Independent Baseline Function- Mobility Independent Baseline Function- Gait 2-3 miles walking daily Baseline Function- Recreation/Hobbies Ping pong 2x/week during school year and 1x/week during summer. Current Functional Impairments (Reported) Functional Limitations- ADL's Standing, sometimes vaccuming, sleep interruption if on L side with R leg hanging over, first steps in morning are painful. Carrying laudry basket causes L lower leg pain. Functional Limitations- Mobility/Gait Walking sidewalks in town 2-3 miles if having done no other previous activities. Functional Limitations- Recreation/ 1-2 [employer] games Hobbies Personal Factors Other Personal Factors That May Effect None. Therapy/Recovery PT-OP-C Subjective Start: 02/09/22 19:41 Freq: Status: Active Protocol: Document 04/10/22 08:16 LRN (Rec: 04/10/22 09:02 LRN [id number]) OP-PT Subjective Patient Comments Patient Comments Notices when standing he feels tightness in the lateral lower leg. Able to go up ladder more without onset of symptoms. Doing steps can feel it, but not painful. Can tell he is using the muscle to go up. No pain/feeling going down. Several weeks no problem sleeping. Started playing [employer] last week once. He didn't have to stop after an hour, played for 2 hrs. PT-OP-J Posture/Palpation/Skin Start: 02/09/22 19:41 Freq: Status: Active Protocol: Document 02/13/22 09:50 LRN (Rec: 02/13/22 11:12 LRN [id number]) Posture Evaluation Position Standing Head/C-Spine Posture Forward Head L-Spine Posture Shifted Left Shoulder Posture (R) Elevated Pelvis Posture (R) Iliac Crest Superior Hip Posture (L) Externally Rotated,(R) Externally Rotated Knee Posture (L) Ext. Tibial Torsion,(R) Ext. Tibial Torsion Ankle/Foot Posture (L) Pronated,(R) Calcaneal Inversion Foot Arch (L) Low Arch,(R) Low Arch Comments Posture Comments R handed Palpation Assessment Location Lumbar Palpation Location L/S interspinous and Spinous processes PA mob Palpation Findings Tenderness Palpation Details L rotated Sacrum Palpation Location Sacrum Palpation Details R rotated PT-OP-K Range of Motion Start: 02/09/22 19:41 Freq: Status: Active Protocol: Document 02/13/22 09:50 LRN (Rec: 02/13/22 11:12 LRN [id number]) Lumbar Spine Range of Motion Lumbar Spine Active Degrees Testing Position Standing Flexion 50 Extension 20 Rotation Left 20 Rotation Right 20 Lateral Flexion Left 12 Lateral Flexion Right 5 Comments FB 50/30 BB 20/10 Hip Goniometric Range of Motion Hip Right Passive Testing Position Supine Straight Leg Raise 70 Internal Rotation 20 External Rotation 20 Left Passive Testing Position Supine Straight Leg Raise 67 Internal Rotation 20 External Rotation 30 Knee Goniometric Range of Motion Knee Right Knee ROM WFL Yes Patient Position Supine Flexion Active (degrees) 120 Left Knee ROM WFL Yes Patient Position Supine Flexion Active (degrees) 120 PT-OP-L Special Tests Start: 02/09/22 19:41 Freq: Status: Active Protocol: Document 02/13/22 09:50 LRN (Rec: 02/13/22 11:12 LRN [id number]) Special Tests Lumbar Spine Special Tests Straight Leg Raise Test Results 70 R, 67 L Vertical Spine Loading Test Results Negative Standing Flexion Test Results Positive Comments Reproduced Tightness in lower legs bilaterally PT-OP-M Strength Start: 02/09/22 19:41 Freq: Status: Active Protocol: Document 02/13/22 09:50 LRN (Rec: 02/13/22 11:12 LRN [id number]) Trunk Strength Trunk Manual Muscle Testing Core Stabilization Pt is not able to maintain core stability with MMT of LE' s. Hip Strength Hip Manual Muscle Testing Right Flexion (L2) 5 Normal Extension (S1) 5 Normal Abduction 5 Normal Adduction 5 Normal External Rotation 5 Normal Internal Rotation 5 Normal Left Flexion (L2) 5 Normal Extension (S1) 5 Normal Abduction 5 Normal Adduction 5 Normal External Rotation 5 Normal Internal Rotation 5 Normal Knee Strength Knee Manual Muscle Testing Right Comments Generally 5/5 Left Comments Generally 5/5 Toe Strength Toe Manual Muscle Testing Right Great Toe Extension 5 Normal Left Great Toe Extension 1 Trace PT-OP-Q Treatments Start: 02/09/22 19:41 Freq: Status: Active Protocol: Document 04/10/22 08:16 LRN (Rec: 04/10/22 09:02 LRN [id number]) Cardio Equipment Bicycle (Upright) Duration (Minutes) 8 Resistance 7 Seat Position 5 Other Cuing for posture & core stab Therapeutic Exercises Supine Exercises Self L/S traction Supine Exercise Name Self L/S traction Reps/Minutes 4' Comments Extra time taken for proper posturing for traction. Prone Exercises on elbows Prone Exercise Name SPIKE Reps/Minutes 15x Comments Extra time for positioning training Standing Exercises dynamic quick step outs Standing Exercise Name assimulate ping pong mobility- not want HO Side bilateral Equipment Used Holding cone Reps/Minutes 10' Comments Cued core stable & in direction of mvmt, & mvmt of feet Trunk rot Standing Exercise Name Arms overhead and rotation stretch Side bilateral Reps/Minutes 10x Toe touch>back arch Standing Exercise Name Toe touch<>Back arch Reps/Minutes 10x Trunk SB Standing Exercise Name Trunk SB stretch Side bilateral Reps/Minutes 2-5 hold x 10 Manual Therapy Treatment Manual Traction Lumbar Details Lumbar traction w/belt & pt using UE's to assist with traction Body Position Hooklying Reps/Duration 3' Self-Care/Home Management Treatment Education Patient Education Home Exercise Program Other Education Educated pt in self lumbar traction during ther ex. PT-OP-R Modalities Start: 02/09/22 19:41 Freq: Status: Active Protocol: Document 03/06/22 08:17 LRN (Rec: 03/06/22 09:07 LRN [id number]) Electric Stimulation Electric Stimulation [L/S] Body Location L/S, pads upper gluts & L2 Intensity 14 Target/Sweep Sweep Patient Position Prone Combined With Heat/Cold Hot Pack Comments HP to back PT-OP-T Assessment and Plan Start: 02/09/22 19:41 Freq: Status: Active Protocol: Document 04/10/22 08:16 LRN (Rec: 04/10/22 09:02 LRN [id number]) Physical Therapy Assessment Goals Three Impairment Decreased tolerance to activities due to onset of R lower leg pain. Short Term Goal (STG) Pt will be able to walk for exercise daily 2-3 miles regardless of prior activities . 02/24/22: GOAL MET: no pain 3 miles with no pain this week. STG Duration 03/27/22 GOAL MET Shelter Goal (LTG) Improve functional strength with pt able to carry laundry baskets without onset of pain. 02/24/22: Progressing: pt states pain not as bad (unable give pain scale rating) carrying laundry basket/carton improved less pain into R leg by 25%. 03/02/22: GOAL MET: no pain anymore. LTG Duration 04/24/22 GOAL MET 03/02/22 Two Impairment R lower leg pain rated 0-4/10. Short Term Goal (STG) Pt will be able to sleep through the night without R lower leg pain STG Duration 03/15/22 (02/21/22: MET GOAL) Shelter Goal (LTG) Pt will be able to take first steps in the morning with tolerable or no R lower leg pain. 04/10/22: In morning R lower leg is stiff. LTG Duration 04/24/22 (02/21/22: MET GOAL) One Impairment Lacks apppropriate self care HEP. Shelter Goal (LTG) Independent with a self care HEP. (02/21/22: HEP: SPIKE ex; previous session ex's: standing trunk ext, Sciatic & peroneal n glide, gastoc/ soleus stretch) 02/24/22: scanned in prior HEP HOs brought today. added quad UE/LEext, TB shld ext and paloff press (rotational pressout). 03/02/22: added calf con/ eccentric raises off step, reviewed rolling pin R calf. 03/30/22: see 03/28 for added ROM/ stretching from PT, today added dynamic quick resisted step outs for assimulation pingpong LE ankle/Lower leg/ trunk stability/mobility. 04/10/22: Educated pt in self L/S traction in supine. LTG Duration 05/14/22 (03/30/22: Progressing) Assessment Summary Assessment Pt can playing ping pong x 1 and he didn't have to stop after an hour, played for 2 hrs. Through motor relearning was able to change pt's mvmt pattern for ping pong play to eliminate R lower leg pain with swing of arms if pt kept core stable and facing direction of imaginary ball being hit. Physical Therapy Plan Frequency and Duration Frequency of Treatment 2x/Week Plan of Care Start Date 02/13/22 Plan of Care End Date 04/24/22 Next Visit Focus/Plan Next Note Type Treatment Note Next Visit Plan Next tx: DC if no pain. Review self traction in supine and result of training with ping pong play this week (x2). POC: Continue Damon ext and core stab. to eliminate pain in R lower leg with stair ambulation. Check DTR's, if needed: STM of R lower leg. manual lumbar traction if having RLE pain; check if needed sacral/?lumbar mobs to correct L4-L5, L5-S1 rotation. With start of walking and strengthening use modalities at end for ms relaxation and pain management (MH/IFES to low back to end).
--- NOTE | 2022-04-14 12:15 | PT.OTN ---
Current Diagnoses Pain in right leg (04/14/22) Physical Therapy Treatment Note PT-OP-A Visit Information Start: 02/09/22 19:41 Freq: Status: Active Protocol: Document 04/14/22 09:49 LRN (Rec: 04/14/22 10:30 LRN [id number]) Out-Patient Physical Therapy Visit Information Visit Information Visit Type Treatment Note Visit Start Time 09:49 Visit Stop Time 10:27 Total Visit Minutes 38 Visit Number 14 Evaluation Information Evaluation Date 02/13/22 Precautions Precautions Controlled HBP, Arthritis in fingers. PT-OP-B Current Condition Start: 02/09/22 19:41 Freq: Status: Active Protocol: Document 02/13/22 09:50 LRN (Rec: 02/13/22 11:12 LRN [id number]) Current Condition History of Current Condition Onset Date Jul 2021 Current Complaints R anterior, lateral and posteromedial lower leg, sometimes into big toe History of Current Condition R lower leg pain that sometimes radiates into the lateral ankle and big toe. Pain depends on the time of day and activity he is doing. Denies accident or injury. Noticed it playing [employer] 2x/week, (summer time 1x/week )during the school year after the first 2-3 games. Walks daily (3 miles) and as long as he doesn't do anything before the walk he can finish, otherwise he can only tolerate 1-2 miles before pain. Sometimes the pain goes away if he does not other activity after walking. Prior Treatments and Tests Arthritis salve, Alleve sometimes helps decrease pain. Treatment Goals Patient/Caregiver Goals Pt goal is to sleep through the night without pain, to be able to walk for exercise daily 2-3 miles regardless of prior activities, to be able carry the laundry baskets without onset of pain. Prior Functional Status Baseline Function- ADL's Independent Baseline Function- Mobility Independent Baseline Function- Gait 2-3 miles walking daily Baseline Function- Recreation/Hobbies Ping pong 2x/week during school year and 1x/week during summer. Current Functional Impairments (Reported) Functional Limitations- ADL's Standing, sometimes vaccuming, sleep interruption if on L side with R leg hanging over, first steps in morning are painful. Carrying laudry basket causes L lower leg pain. Functional Limitations- Mobility/Gait Walking sidewalks in town 2-3 miles if having done no other previous activities. Functional Limitations- Recreation/ 1-2 [employer] games Hobbies Personal Factors Other Personal Factors That May Effect None. Therapy/Recovery PT-OP-C Subjective Start: 02/09/22 19:41 Freq: Status: Active Protocol: Document 04/14/22 09:49 LRN (Rec: 04/14/22 10:30 LRN [id number]) OP-PT Subjective Patient Comments Patient Comments No R knee pain today. Able to play through [employer] for 2 days and found it acceptable to live with. Still felt the R lateral lower leg pain near the end. Was able to massage and rub it (with tennis ball) to help relieve the pain. Able go up/down stairs with step over step gait easier and without R lower leg pain. Patient Questionnaires Lower Extremity Functional Scale LEFS Score 61 LEFS Impairment 20 to 39% Impaired (Score 48- 62) PT-OP-J Posture/Palpation/Skin Start: 02/09/22 19:41 Freq: Status: Active Protocol: Document 02/13/22 09:50 LRN (Rec: 02/13/22 11:12 LRN [id number]) Posture Evaluation Position Standing Head/C-Spine Posture Forward Head L-Spine Posture Shifted Left Shoulder Posture (R) Elevated Pelvis Posture (R) Iliac Crest Superior Hip Posture (L) Externally Rotated,(R) Externally Rotated Knee Posture (L) Ext. Tibial Torsion,(R) Ext. Tibial Torsion Ankle/Foot Posture (L) Pronated,(R) Calcaneal Inversion Foot Arch (L) Low Arch,(R) Low Arch Comments Posture Comments R handed Palpation Assessment Location Lumbar Palpation Location L/S interspinous and Spinous processes PA mob Palpation Findings Tenderness Palpation Details L rotated Sacrum Palpation Location Sacrum Palpation Details R rotated PT-OP-K Range of Motion Start: 02/09/22 19:41 Freq: Status: Active Protocol: Document 02/13/22 09:50 LRN (Rec: 02/13/22 11:12 LRN [id number]) Lumbar Spine Range of Motion Lumbar Spine Active Degrees Testing Position Standing Flexion 50 Extension 20 Rotation Left 20 Rotation Right 20 Lateral Flexion Left 12 Lateral Flexion Right 5 Comments FB 50/30 BB 20/10 Hip Goniometric Range of Motion Hip Right Passive Testing Position Supine Straight Leg Raise 70 Internal Rotation 20 External Rotation 20 Left Passive Testing Position Supine Straight Leg Raise 67 Internal Rotation 20 External Rotation 30 Knee Goniometric Range of Motion Knee Right Knee ROM WFL Yes Patient Position Supine Flexion Active (degrees) 120 Left Knee ROM WFL Yes Patient Position Supine Flexion Active (degrees) 120 PT-OP-L Special Tests Start: 02/09/22 19:41 Freq: Status: Active Protocol: Document 02/13/22 09:50 LRN (Rec: 02/13/22 11:12 LRN [id number]) Special Tests Lumbar Spine Special Tests Straight Leg Raise Test Results 70 R, 67 L Vertical Spine Loading Test Results Negative Standing Flexion Test Results Positive Comments Reproduced Tightness in lower legs bilaterally PT-OP-M Strength Start: 02/09/22 19:41 Freq: Status: Active Protocol: Document 02/13/22 09:50 LRN (Rec: 02/13/22 11:12 LRN [id number]) Trunk Strength Trunk Manual Muscle Testing Core Stabilization Pt is not able to maintain core stability with MMT of LE' s. Hip Strength Hip Manual Muscle Testing Right Flexion (L2) 5 Normal Extension (S1) 5 Normal Abduction 5 Normal Adduction 5 Normal External Rotation 5 Normal Internal Rotation 5 Normal Left Flexion (L2) 5 Normal Extension (S1) 5 Normal Abduction 5 Normal Adduction 5 Normal External Rotation 5 Normal Internal Rotation 5 Normal Knee Strength Knee Manual Muscle Testing Right Comments Generally 5/5 Left Comments Generally 5/5 Toe Strength Toe Manual Muscle Testing Right Great Toe Extension 5 Normal Left Great Toe Extension 1 Trace PT-OP-Q Treatments Start: 02/09/22 19:41 Freq: Status: Active Protocol: Document 04/14/22 09:49 LRN (Rec: 04/14/22 10:30 LRN [id number]) Cardio Equipment Bicycle (Upright) Duration (Minutes) 8 Resistance 7 Seat Position 5 Other Cuing for posture & core stab Therapeutic Exercises Supine Exercises Self L/S traction Supine Exercise Name Self L/S traction Reps/Minutes 3' Comments Extra time taken for proper posturing for traction. Sitting Exercises Self LB traction Sitting Exercise Name Self LB traction Reps/Minutes 4' Comments Extra time taken for training & cuing to de-wgt legs. STS Sitting Exercise Name STS Equipment Used Web chair Reps/Minutes x10 reps Comments good form/ pacing, painfree, Standing Exercises SLS Standing Exercise Name SLS in ping pong play position Side bilateral Reps/Minutes 10x each dynamic quick step outs Standing Exercise Name assimulate ping pong mobility- not want HO Side bilateral Equipment Used Holding cone Reps/Minutes 5' Comments Cued core stable & in direction of mvmt, & mvmt of feet Trunk rot Standing Exercise Name Arms overhead and rotation stretch Side bilateral Reps/Minutes 10x Toe touch>back arch Standing Exercise Name Toe touch<>Back arch Reps/Minutes 10x Trunk SB Standing Exercise Name Trunk SB stretch Side bilateral Reps/Minutes 2-5 hold x 10 Up/Down stairs Standing Exercise Name up/down with postural training Reps/Minutes 3' Comments reported no peroneals tightness or tingling gastroc, soleus stretch Side bilateral Reps/Minutes 45 each x2 Comments Calf stretch at stairs - cue for heel out. Neuro Re-Education Treatment Balance Activities Shuttle Balance Details Red supports for side<>side, and fwd/bkwd. Equipment Shuttle Balance Reps/Duration 6' Comments No pain with balance ex's. SLS Details SLS in ping pong reach form Surface Level Reps/Duration 4' PT-OP-R Modalities Start: 02/09/22 19:41 Freq: Status: Active Protocol: Document 03/06/22 08:17 LRN (Rec: 03/06/22 09:07 LRN [id number]) Electric Stimulation Electric Stimulation [L/S] Body Location L/S, pads upper gluts & L2 Intensity 14 Target/Sweep Sweep Patient Position Prone Combined With Heat/Cold Hot Pack Comments HP to back PT-OP-T Assessment and Plan Start: 02/09/22 19:41 Freq: Status: Active Protocol: Document 04/14/22 09:49 LRN (Rec: 04/14/22 10:30 LRN [id number]) Physical Therapy Assessment Goals Three Impairment Decreased tolerance to activities due to onset of R lower leg pain. Short Term Goal (STG) Pt will be able to walk for exercise daily 2-3 miles regardless of prior activities . 02/24/22: GOAL MET: no pain 3 miles with no pain this week. STG Duration 03/27/22 GOAL MET [facility] Goal (LTG) Improve functional strength with pt able to carry laundry baskets without onset of pain. 02/24/22: Progressing: pt states pain not as bad (unable give pain scale rating) carrying laundry basket/carton improved less pain into R leg by 25%. 03/02/22: GOAL MET: no pain anymore. LTG Duration 04/24/22 GOAL MET 03/02/22 Two Impairment R lower leg pain rated 0-4/10. Short Term Goal (STG) Pt will be able to sleep through the night without R lower leg pain STG Duration 03/15/22 (02/21/22: MET GOAL) [facility] Goal (LTG) Pt will be able to take first steps in the morning with tolerable or no R lower leg pain. 04/10/22: In morning R lower leg is stiff. LTG Duration 04/24/22 (02/21/22: MET GOAL) One Impairment Lacks apppropriate self care HEP. [facility] Goal (LTG) Independent with a self care HEP. (02/21/22: HEP: SPIKE ex; previous session ex's: standing trunk ext, Sciatic & peroneal n glide, gastoc/ soleus stretch) 02/24/22: scanned in prior HEP HOs brought today. added quad UE/LEext, TB shld ext and paloff press (rotational pressout). 03/02/22: added calf con/ eccentric raises off step, reviewed rolling pin R calf. 03/30/22: see 03/28 for added ROM/ stretching from PT, today added dynamic quick resisted step outs for assimulation pingpong LE ankle/Lower leg/ trunk stability/mobility. 04/10/22: Educated pt in self L/S traction in supine. LTG Duration 05/14/22 (04/14/22: MET GOAL) Assessment Summary Assessment Pt has been able to return to ping pong play with R lateral lower leg pain onset at end of play period. Pt was able to manage the pain with stretching and self massage with a tennis ball. The pt demonstrates good knowledge of his HEP reviewed. The pt has met all his goals and is ready to be discharged to his independent HEP. Physical Therapy Plan Discharge Physical Therapy Discharge Reasons Goals Met Discharge Comments Pt has occasional onset of L lateral lower leg pain after extended ping pong play that may be lumbar related. He is able to manage his pain at this time. He may need further assessment and work up of his lumbar spine if pain returns.
== END 2022-04-18 11:32 | disposition home or self-care (01) ==
LOC: PHYS 09:45
PROVIDERS: Family Provider Student in an Organized Health Care Education/Training Program; PCP Student in an Organized Health Care Education/Training Program; Referring Provider Student in an Organized Health Care Education/Training Program; Visit Provider Student in an Organized Health Care Education/Training Program
DX: M79.604 Pain in right leg (principal)
CPT/HCPCS: 97014; 97110; 97112; 97140; 97161; 97535; G0283

== ENCOUNTER → 2023-01-12 08:41 | Outpatient (CLI) | payer MEDICARE, OTHER, SELFPAY ==
[2023-01-12 09:43] LABS: Add Manual Diff / Slide Review NO; Basophils Absolute Auto 100 /uL (0-100); Basophils Percent Auto 0.6 % (0-2); Eosinophils Absolute Auto 300 /uL (0-450); Eosinophils Percent Auto 2.7 % (2-4); Hematocrit 38.3 % (41-53); Hemoglobin 13.3 g/dL (13.5-17.5); Lymphocytes Absolute Auto 3900 /uL (1100-4500); Lymphocytes Percent Auto 37.1 % (25-40); Mean Corpuscular HGB Conc 34.8 % (30-36); Mean Corpuscular Volume 88.9 fL (80-100); Monocytes Absolute Auto 600 /uL (0-900); Monocytes Percent Auto 5.5 % (3-14); Neutrophils Absolute Auto 5600 /uL (1500-7000); Neutrophils Percent Auto 54.1 % (50-75); Platelet Count 329 X10^3/uL (150-400); Red Cell Distribution Width 12.7 % (11.6-14.8); White Blood Cell Count 10.4 X10^3/uL (4.5-11.0)
[2023-01-12 10:10] LABS: Alanine Aminotransferase 38 IU/L (<50); Albumin 3.8 g/dL (3.5-5.0); Albumin Globulin Ratio 1.5 (1.0-2.8); Alkaline Phosphatase 65 U/L (38-126); Aspartate Aminotransferase 34 IU/L (17-59); BUN Creatinine Ratio 15.8 (6-22); Bilirubin Total 0.8 mg/dL (0.2-1.3); Blood Urea Nitrogen 18 mg/dL (9-20); Calcium 8.8 mg/dL (8.4-10.2); Carbon Dioxide 31 mmol/L (22-32); Chloride 102 mmol/L (98-107); Cholesterol 142 mg/dL (140-199); Estimated Glomerular Filt Rate > 60 mL/min (>60); Globulin 2.6 g/dL (1.7-4.1); Glucose 96 mg/dL (80-110); HDL Cholesterol 42 mg/dL (40-60); HEMOLYSIS < 15 (0-50); LDL Cholesterol Calculated 85 mg/dL (<100); Sodium 137 mmol/L (137-145); Total Protein 6.4 g/dL (6.3-8.2); Triglycerides 77 mg/dL (35-150)
[2023-01-12 10:28] LABS: Appearance Urine UA CLEAR; Bilirubin Urine UA NEGATIVE (NEGATIVE); Color Urine UA YELLOW; Glucose Urine UA NEGATIVE (Negative); Ketones Urine UA NEGATIVE (NEGATIVE); Leukocyte Esterase Urine UA TRACE (NEGATIVE); Nitrite Urine UA NEGATIVE (Negative); Occult Blood Urine UA NEGATIVE (Negative); Protein Urine UA NEGATIVE (Negative); Urobilinogen Urine UA 0.2 E.U./dL (0.2); pH Urine UA 7.5 (4.5-8.0)
[2023-01-12 10:36] LABS: Bacteria Urine Occasional (0-1); Culture Indicated Urine Specimen Cultured; RBC Urine 0-1/HPF (0-5/HPF); Squamous Epithelial Cell Urine 0-1 /HPF (0-5/HPF); WBC Urine 0-1/HPF (0-5/HPF)
[2023-01-12 10:41] LABS: Prostate Specific Antigen Scrn 3.03 ng/mL (0.1-4.0); TSH w/ Reflex to FT4 2.01 uIU/mL (0.47-4.68)
== END ==
PROVIDERS: Family Provider Student in an Organized Health Care Education/Training Program; PCP Pediatrics; Referring Provider Pediatrics; Visit Provider Pediatrics
DX: E78.00 Pure hypercholesterolemia, unspecified (principal); Z12.5 Encounter for screening for malignant neoplasm of prostate; I10 Essential (primary) hypertension; M19.039 Primary osteoarthritis, unspecified wrist
CPT/HCPCS: 36415; 80053; 80061; 81001; 84443; 85025; 87086; G0103

== ENCOUNTER → 2023-08-09 11:15 | Outpatient (CLI) | payer MEDICARE, OTHER, SELFPAY ==
[2023-08-10 11:51] LABS: Fecal Immunochemical Test Negative (Negative)
== END ==
PROVIDERS: Family Provider Student in an Organized Health Care Education/Training Program; PCP Family Medicine; Referring Provider Family Medicine; Visit Provider Family Medicine
DX: Z12.11 Encounter for screening for malignant neoplasm of colon (principal)
CPT/HCPCS: 82274

== ENCOUNTER → 2024-01-15 09:13 | Outpatient (CLI) | payer MEDICARE, OTHER, SELFPAY ==
[2024-01-15 11:02] LABS: Add Manual Diff / Slide Review NO; Basophils Absolute Auto 100 /uL (0-100); Basophils Percent Auto 0.7 % (0-2); Eosinophils Absolute Auto 300 /uL (0-450); Eosinophils Percent Auto 2.7 % (2-4); Hematocrit 37.7 % (41-53); Hemoglobin 12.9 g/dL (13.5-17.5); Lymphocytes Absolute Auto 3600 /uL (1100-4500); Lymphocytes Percent Auto 34.1 % (25-40); Mean Corpuscular HGB Conc 34.2 % (30-36); Mean Corpuscular Hemoglobin 30.2 PG (26-34); Mean Corpuscular Volume 88.4 fL (80-100); Monocytes Absolute Auto 600 /uL (0-900); Monocytes Percent Auto 5.3 % (3-14); Neutrophils Absolute Auto 6100 /uL (1500-7000); Neutrophils Percent Auto 57.2 % (50-75); Platelet Count 359 X10^3/uL (150-400); Red Blood Cell Count 4.26 X10^6/uL (4.5-5.9); Red Cell Distribution Width 13.1 % (11.6-14.8); White Blood Cell Count 10.6 X10^3/uL (4.5-11.0)
[2024-01-15 12:33] LABS: Alanine Aminotransferase 32 IU/L (<50); Albumin 3.9 g/dL (3.5-5.0); Albumin Globulin Ratio 1.3 (1.0-2.8); Alkaline Phosphatase 82 U/L (38-126); Aspartate Aminotransferase 35 IU/L (17-59); BUN Creatinine Ratio 17.8 (6-22); Bilirubin Total 0.6 mg/dL (0.2-1.3); Blood Urea Nitrogen 23 mg/dL (9-20); Carbon Dioxide 30 mmol/L (22-32); Chloride 104 mmol/L (98-107); Cholesterol 152 mg/dL (140-199); Estimated Glomerular Filt Rate 56 mL/min (>60); Globulin 2.9 g/dL (1.7-4.1); Glucose 95 mg/dL (80-110); HDL Cholesterol 50 mg/dL (40-60); HEMOLYSIS < 15 (0-50); LDL Cholesterol Calculated 79 mg/dL (<100); Potassium 4.5 mmol/L (3.4-5.1); Sodium 138 mmol/L (137-145); Total Protein 6.8 g/dL (6.3-8.2); Triglycerides 115 mg/dL (35-150)
== END ==
PROVIDERS: Family Provider Student in an Organized Health Care Education/Training Program; PCP Family Medicine; Referring Provider Family Medicine; Visit Provider Family Medicine
DX: I10 Essential (primary) hypertension (principal); E78.00 Pure hypercholesterolemia, unspecified; D64.9 Anemia, unspecified
CPT/HCPCS: 36415; 80053; 80061; 85025

== ENCOUNTER → 2025-01-19 09:25 | Outpatient (CLI) | payer MEDICARE, OTHER, SELFPAY ==
[2025-01-19 10:22] LABS: Hematocrit 37.4 % (41-53); Hemoglobin 12.8 g/dL (13.5-17.5); Mean Corpuscular HGB Conc 34.3 % (30-36); Mean Corpuscular Volume 90.4 fL (80-100); Platelet Count 315 X10^3/uL (150-400); Red Blood Cell Count 4.14 X10^6/uL (4.5-5.9); Red Cell Distribution Width 12.6 % (11.6-14.8); White Blood Cell Count 7.9 X10^3/uL (4.5-11.0)
[2025-01-19 10:38] LABS: Alanine Aminotransferase 28 IU/L (<50); Albumin Globulin Ratio 1.5 (1.0-2.8); Alkaline Phosphatase 59 U/L (38-126); Aspartate Aminotransferase 39 IU/L (17-59); BUN Creatinine Ratio 13.4 (6-22); Bilirubin Total 0.9 mg/dL (0.2-1.3); Blood Urea Nitrogen 16 mg/dL (9-20); Carbon Dioxide 29 mmol/L (22-32); Chloride 103 mmol/L (98-107); Cholesterol 136 mg/dL (140-199); Estimated Glomerular Filt Rate > 60 mL/min (>60); Globulin 2.6 g/dL (1.7-4.1); Glucose 101 mg/dL (70-99); HDL Cholesterol 41 mg/dL (40-60); HEMOLYSIS < 15 (0-50); LDL Cholesterol Calculated 84 mg/dL (<100); Potassium 4.1 mmol/L (3.4-5.1); Sodium 138 mmol/L (137-145); Total Protein 6.6 g/dL (6.3-8.2); Triglycerides 54 mg/dL (35-150)
== END ==
PROVIDERS: PCP Family Medicine; Referring Provider Family Medicine; Visit Provider Family Medicine
DX: Z00.00 Encounter for general adult medical examination without abnormal findings (principal); I10 Essential (primary) hypertension; E78.00 Pure hypercholesterolemia, unspecified; M25.551 Pain in right hip
CPT/HCPCS: 36415; 80053; 80061; 85027